=== PATIENT | male | born 1970 | race Caucasian/White ===

== ENCOUNTER 2017-01-30 14:40 | Emergency (ER) | payer OTHER ==
[2017-01-30 15:01] VITALS: BP 117/86; PULSE 98; TEMP 98; BMI 38.4
--- NOTE | 2017-01-30 16:41 | PDOC ---
History of Present Illness - General History Source: Patient Exam Limitations: No Limitations - History of Present Illness Initial Comments: 01/30/17 18:03 Chief complaint: Back pain Patient 46-year-old male with a history of type 2 diabetes, asthma, hypertension and some unknown cardiac issue, patient states that control engineer found it during a stress test in the spring. Patient states that he started having some lower back pain radiating into the left leg earlier today, he went shopping, and then his back locked up. He got into the car and he started having pain to his whole back with numbness also down the right leg. Patient states he was able to drive himself here but he has not been able to move since. Is also complaining of numbness to the right arm although he can move it. Patient denies any fever, headache, neck pain. Patient denies having pain like this before, patient knows that he has a herniated disc, and last MRI was in 2012. He states he sometimes gets back pain and he takes Aleve but this was much worse. Patient is refusing to get undressed before he gets pain medicine. GENERAL/CONSTITUTIONAL: No fever, weakness. dizziness HEAD, EYES, EARS, NOSE AND THROAT: No change in vision. No ear pain or discharge. No sore throat. CARDIOVASCULAR: No chest pain RESPIRATORY: No shortness of breath or cough GASTROINTESTINAL: No pain, nausea, vomiting, diarrhea or constipation GENITOURINARY: No dysuria MUSCULOSKELETAL: No neck +back pain SKIN: No rash NEUROLOGIC: No headache, vertigo, loss of consciousness, + loss of sensation. GENERAL: The patient is awake, alert, and fully oriented, flat on the stretcher , unable to move legs and move due to pain to back, moving both arms easily HEAD: Normal with no signs of trauma. EYES: Pupils equal, round and reactive to light, sclera anicteric, conjunctiva clear. ENT: pharynx: no erythema, no exudate, uvula midline NECK: supple CHEST: clear, nontender, rr ABD: soft, nontender Back: Tenderness to the lower spine EXTREMITIES: Strength 5 out of 5 in upper extremities, states feeling is less in right arm. Lower extremities unable to move secondary to pain, able to move toes, states sensation is decreased in both feet, pulses intact NEUROLOGICAL: Normal speech, unable to test gait SKIN: Warm, Dry <Marichuy Salazar - Last Filed: 01/30/17 19:20> <Birgit Gomez - Last Filed: 01/31/17 11:32> - General Chief Complaint: Back Pain Stated Complaint: BACK PAIN Time Seen by Provider: 01/30/17 15:55 Past History - Past Medical History Asthma: Yes COPD: No Diabetes: Yes HTN: Yes Other medical history: back - Suicide/Smoking/Psychosocial Hx Smoking Status: Yes Smoking History: Never smoked Have you smoked in the past 12 months: No Number of Cigarettes Smoked Daily: 20 Information on smoking cessation initiated: Yes 'Breaking Loose' booklet given: 01/30/17 Hx Alcohol Use: No Drug/Substance Use Hx: No Substance Use Type: Alcohol <Marichuy Salazar - Last Filed: 01/30/17 19:20> <Birgit Gomez - Last Filed: 01/31/17 11:32> - Past Medical History Allergies/Adverse Reactions: Allergies Allergy/AdvReac Type Severity Reaction Status Date / Time No Known Allergies Allergy Verified 01/30/17 14:57 Home Medications: Ambulatory Orders Activated Charcoal [Charcoal Plus Ds] 500 mg PO BID 07/20/12 Ferrous Fumarate [Iron] 55 mg PO 07/20/12 Methocarbamol [Robaxin -] 750 mg PO Q8H PRN #15 tablet 01/30/17 Tramadol HCl 50 mg PO Q6H PRN #16 tablet MDD 4 tabs 01/30/17 *Physical Exam - Vital Signs Last Vital Signs Temp Pulse Resp BP Pulse Ox 98.0 F 98 H 18 117/86 100 01/30/17 14:57 01/30/17 14:57 01/30/17 14:57 01/30/17 14:57 01/30/17 14:57 <Marichuy Salazar - Last Filed: 01/30/17 19:20> - Vital Signs Last Vital Signs Temp Pulse Resp BP Pulse Ox 98.0 F 98 H 18 117/86 100 01/30/17 14:57 01/30/17 14:57 01/30/17 14:57 01/30/17 14:57 01/30/17 14:57 <Birgit Gomez - Last Filed: 01/31/17 11:32> Heart Score/ECG Review - ECG Intrepretation Rhythm: Regular Rhythm Comment:: 01/30/17 18:24 Sinus tachycardia at 102, no ST changes <Marichuy Salazar - Last Filed: 01/30/17 19:20> ED Treatment Course - LABORATORY CBC & Chemistry Diagram: 01/30/17 17:10 01/30/17 17:10 <Marichuy Salazar - Last Filed: 01/30/17 19:20> - LABORATORY CBC & Chemistry Diagram: 01/30/17 17:10 01/30/17 17:10 - ADDITIONAL ORDERS Additional order review: Laboratory Results 01/30/17 20:56 Ur Leukocyte Esterase Negative 01/30/17 17:10 RBC 5.40 MCV 89.4 MCHC 34.4 RDW 13.9 MPV 8.5 Neutrophils % 56.8 Lymphocytes % 35.1 Monocytes % 6.6 Eosinophils % 0.6 Basophils % 0.9 - Medications Given in the ED: ED Medications Discontinued Medications Generic Name Dose Route Start Last Admin Trade Name Papito PRN Reason Stop Dose Admin Albuterol Sulfate 1 amp 01/30/17 19:44 01/30/17 20:15 Ventolin 0.083% Nebulizer Soln - NEB 01/30/17 19:45 1 amp ONCE ONE Administration Hydromorphone HCl 0.5 mg 01/30/17 17:42 01/30/17 17:51 Dilaudid Injection - IVPUSH 01/30/17 17:43 0.5 mg ONCE ONE Administration Hydromorphone HCl 0.5 mg 01/30/17 19:05 01/30/17 19:33 Dilaudid Injection - IVPUSH 01/30/17 19:06 0.5 mg ONCE ONE Administration Methocarbamol 1,000 mg 01/30/17 19:44 01/30/17 20:15 Robaxin - PO 01/30/17 19:45 1,000 mg ONCE ONE Administration Morphine Sulfate 4 mg 01/30/17 16:42 01/30/17 17:15 Morphine Injection - IVPUSH 01/30/17 16:43 4 mg ONCE ONE Administration <Birgit Gomez - Last Filed: 01/31/17 11:32> Medical Decision Making - Medical Decision Making 01/30/17 18:21 Patient with onset of lower back pain today, radiating into his legs, with numbness in both legs, pain was also radiating upwards, also complaining of numbness to the right hand. Motor function is intact to the upper extremities. Patient drove himself to the hospital. She is not able to ambulate now. Patient refused rectal exam although we told him that it was very important, that if he had cord compression it could lead to paralysis. Discussed with Dr. Gomez, who agreed we should do MRI given symptoms to rule out cauda equina, patient agreeable to plan 01/30/17 18:59 pt states numbness in right arm is gone. numbness in legs has decreased. was able to sit after pain meds, prior to mri pt returned from mri, awaiting results. c/o pain, will order more pain meds. s/ o to [facility], pending mri and dispo 01/30/17 19:21 <Marichuy Salazar - Last Filed: 01/30/17 19:20> *DC/Admit/Observation/Transfer <Marichuy Salazar - Last Filed: 01/30/17 19:20> - Attestations Physician Attestion: I reviewed the case with the mid-level practitioner and agree with the mid- level practitioner's assessment, diagnosis and disposition. <Birgit Gomez - Last Filed: 01/31/17 11:32> Diagnosis at time of Disposition: Back pain Qualifiers: Back pain location: back pain in unspecified location Chronicity: acute Back pain laterality: midline Qualified Code(s): M54.9 - Dorsalgia, unspecified Herniated disc Qualifiers: Spinal region: lumbar Qualified Code(s): M51.26 - Other intervertebral disc displacement, lumbar region - Discharge Dispostion Disposition: HOME Condition at time of disposition: Improved - Prescriptions Prescriptions: Methocarbamol [Robaxin -] 750 mg PO Q8H PRN #15 tablet PRN Reason: Back Pain Tramadol HCl 50 mg PO Q6H PRN #16 tablet MDD 4 tabs PRN Reason: Severe Pain - Referrals Referrals: Jose Shearer MD [Staff Physician] - - Patient Instructions Printed Discharge Instructions: DI for Herniated Disc Additional Instructions: Follow up with Dr. Shearer as discussed. Do not lift items greater than 10lbs until you are evaluated by Dr. Shearer. Take medications as prescribed. If you require a refill of prescriptions pain medications, you must visit with Dr. Shearer. Take warm showers, apply warm compress to affected area as needed for pain. Move slowly when getting out of seated position. Return if symptoms worsen or any concerns for further evaluation. Do not drive, drink alcohol or operate heavy machinery while taking these medications. We try very hard in providing patients on a case by case basis with adequate pain relief. Do to the potential habitual behaviors nationally we are asking that you use the medications as prescribed and follow up with your primary care provider or specialist if a refill is needed. Tramadol 50mg #16- 4 tabs MDD. Robaxin 750mg #15 - 3 tabs MDD. Print Language: YEMENI
[2017-01-30] MEDS ORDERED: morphine CARPU-JECT 4 MG/1 ML DISP.SYRIN IVPUSH ONE (16:42)
[2017-01-30] MEDS ORDERED: morphine SULFATE 4 MG/ML VIAL ONE (17:11)
[2017-01-30 17:15] LABS: BASOPHIL 0.9 % (0-2.0); EOSINOPHIL 0.6 % (0-4.5); MCH 30.8 pg (25.7-33.7); MCHC 34.4 g/dl (32.0-35.9); MEAN CELL VOLUME 89.4 fl (80-96); MEAN PLT VOLUME 8.5 fl (7.5-11.1); NEUTROPHILS 56.8 % (42.8-82.8); PLATELET COUNT 222 K/MM3 (134-434); RDW 13.9 % (11.9-15.9)
[2017-01-30 17:41] LABS: ALBUMIN 4.1 g/dl (3.4-5.0); ANION GAP 9 (8-16); BILIRUBIN,TOTAL 0.8 mg/dL (0.2-1.0); CALCIUM 9.7 mg/dL (8.5-10.1); CO2 26 mmol/L (21-32); CREATININE 0.8 mg/dL (0.7-1.3); GLUCOSE,RANDOM 119 mg/dL (74-106); SGPT/ALT 206 U/L (12-78)
[2017-01-30 17:42] LABS: ALK PHOS 70 U/L (45-117); TOT PROT 7.8 g/dl (6.4-8.2)
[2017-01-30] MEDS ORDERED: HYDROmorphone HCL CARPU-JECT 1 MG/1 ML DISP.SYRIN IVPUSH ONE ×2 (17:42→19:05)
[2017-01-30 17:46] LABS: SGOT/AST 151 U/L (15-37)
[2017-01-30] MEDS ORDERED: HYDROmorphone HCL CARPU-JECT 1 MG/1 ML DISP.SYRIN ONE ×2 (17:48→19:25)
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
[2017-01-30] MEDS ORDERED: ALBUTEROL SO4 0.083% IH SOL 2.5 MG/3 ML VIAL.NEB. NEB ONE ×2 (19:44→20:07)
[2017-01-30] MEDS ORDERED: METHOCARBAMOL 500 MG TABLET PO ONE (19:44)
[2017-01-30] MEDS ORDERED: METHOCARBAMOL 500 MG TABLET ONE (20:07)
[2017-01-30 21:14] LABS: URINE MARIJUANA THC NEGATIVE ng/ml (CUTOFF=50)
[2017-01-30 21:16] LABS: URINE APPEARANCE CLEAR; URINE BILIRUBIN NEGATIVE (NEGATIVE); URINE BLOOD NEGATIVE (NEGATIVE); URINE COLOR YELLOW; URINE GLUCOSE (UA) NEGATIVE (NEGATIVE); URINE KETONE TRACE (NEGATIVE); URINE LEUK ESTERASE NEGATIVE (NEGATIVE); URINE NITRITE NEGATIVE (NEGATIVE); URINE PROTEIN NEGATIVE (NEGATIVE); URINE UROBILINOGEN NEGATIVE mg/dL (0.2-1.0)
[2017-01-30 23:30] LABS: URINE LEUK ESTERASE Negative (NEGATIVE)
--- NOTE | 2017-02-02 01:40 | EKG ---
Test Reason : Blood Pressure : / mmHG Vent. Rate : 102 BPM Atrial Rate : 102 BPM P-R Int : 156 ms QRS Dur : 078 ms QT Int : 370 ms P-R-T Axes : 047 032 031 degrees QTc Int : 482 ms SINUS TACHYCARDIA OTHERWISE NORMAL ECG NO PREVIOUS ECGS AVAILABLE Confirmed by MARY GRACE ORTEGA MD ([id number]) on 02/02/2017 1:40:27 AM Referred By: Confirmed By:MARY GRACE ORTEGA MD
== END 2017-01-30 21:28 | disposition home or self-care (01) ==
LOC: JERFT 14:40 → JER 14:40
PROC: 3E0F7GC Introduction of Other Therapeutic Substance into Respiratory Tract, Via Natural or Artificial Opening (ICD-10-PCS; principal; 2017-01-30)
PROC: 3E033NZ Introduction of Analgesics, Hypnotics, Sedatives into Peripheral Vein, Percutaneous Approach (ICD-10-PCS; 2017-01-30)
PROC: 3E033NZ Introduction of Analgesics, Hypnotics, Sedatives into Peripheral Vein, Percutaneous Approach (ICD-10-PCS; 2017-01-30)
DX: M51.26 Other intervertebral disc displacement, lumbar region (principal); I10 Essential (primary) hypertension; E11.9 Type 2 diabetes mellitus without complications; J45.909 Unspecified asthma, uncomplicated; F17.210 Nicotine dependence, cigarettes, uncomplicated
CPT/HCPCS: 36415; 72148-TC; 80053; 80307; 81003; 85025; 93005; 93010; 99283-25

== ENCOUNTER 2019-08-18 10:20 | Inpatient (IN) | payer OTHER ==
[2019-08-18 11:24] LABS: BASO % 0.3 % (0-2.0); EOS % 0.5 % (0-4.5); HEMATOCRIT 35.9 % (35.4-49); HEMOGLOBIN 11.9 GM/dL (11.7-16.9); LYMPH % 8.7 % (8-40); MCH 30.2 pg (25.7-33.7); MEAN CELL VOLUME 91.5 fl (80-96); MEAN PLT VOLUME 8.9 fl (7.5-11.1); MONO % 5.3 % (3.8-10.2); NEUT % 85.2 % (42.8-82.8); PLATELET COUNT 367 K/MM3 (134-434); RBC 3.93 M/mm3 (4.00-5.60); RDW 16.1 % (11.9-15.9); WHITE BLOOD COUNT 13.4 K/mm3 (4.0-10.0)
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
[2019-08-18] MEDS ORDERED: SODIUM CHLORIDE 1,000 ML IV STA (11:33)
[2019-08-18 11:34] LABS: INR 1.18 (0.83-1.09); PROTHROMBIN TIME (PATIENT) 13.9 SEC (9.7-13.0)
[2019-08-18 11:37] LABS: ACTIVATED PTT 38.8 SECONDS (25.2-36.5)
--- NOTE | 2019-08-18 11:37 | PDOC ---
History of Present Illness - History of Present Illness Initial Comments: 08/18/19 11:32 HPI: 48 y/o M with hx of DM, HTN, ?unknown cardiac hx, diverticulitis, cirrhosis confirmed by , asthma presenting with AMS. According to the , he became disoriented yesterday around 2pm, not answering her questions and having incoherent speech with generalized weakness, however, no focal muscular weakness. She reports at that time he wasnt able to get out of bed to urinate. She checked his BP and it was 50s/30s and skipped his night BP meds. He was not improving this morning and called EMS. Of note, on 07/30/19, he had similar presentation of incoherence following an episode of SOB. He was admitted to [facility] for viral PNA; he was intubated for protection of airway and because he was not tolerating MRI brain and LP. LP was negative and MRI showed hx of stroke from the prior month; serial COVID was negative. He was DCd from [facility] with amlodipine due to high BP; after DC, he felt dizzy following amlodipine and sustained a fall and had an ankle fx; has been on percocet and scheduled for surgery next week Furthermore, patient saw ENT earlier this week for sore throat and difficulty swallowing and was diagnosed with oral thrush PMHx: as noted above ROS: as noted SHx: Denies tobacco use; no alcohol use; no rec drugs Allergies: NKDA ROS: unable to obtain 2/2 mental status PE: GENERAL: Somnolent, responds to repeated verbal stimuli, a&ox1 HEAD: No signs of trauma, normocephalic, atraumatic EYES: EOMI, sclera anicteric, conjunctiva clear, PERRLA ENT: Auricles normal inspection, hearing grossly normal, nares patent, white oral plaques on tongue and posterior oropharync, dry mucosa NECK: Normal ROM, no lymphadenopathy LUNGS: No increased work of breathing, symmetrical chest rise, clear to auscultation bilaterally, no wheezes, crackles or rhonchi HEART: Regular rate, regular rhythm, normal S1 and S2, no murmur, peripheral pulses 2+ and equal bilaterally. ABDOMEN: Soft, nondistended, generalized ttp. No guarding, no rebound. No masses. No CVAT MUSCULOSKELETAL: FROM, left foot with posterior splint for ankle fx, compartments soft 2+ distal pulses, sensation intact NEUROLOGICAL: limited 2/2 mental status, follows commands, str equal but limited 3/5 SKIN: cold, Dry, normal turgor, no rashes or lesions noted <Vicente Alvarado - Last Filed: 08/18/19 15:44> <Birgit Gomez - Last Filed: 08/19/19 08:01> - General Chief Complaint: Altered Mental Status Stated Complaint: Altered Mental Status Time Seen by Provider: 08/18/19 10:35 Past History - Medical History Asthma: Yes COPD: No Diabetes: Yes HTN: Yes - Psycho-Social/Smoking History Smoking Status: Yes Smoking History: Unknown if ever smoked Have you smoked in the past 12 months: No Number of Cigarettes Smoked Daily: 20 'Breaking Loose' booklet given: 01/30/17 - Substance Abuse Hx (Audit-C & DAST Scrn) In the last yr the pt used illegal drug/Rx for NonMed reason: No Score: Yes response is considered Positive: 0 Screen Result (Positive result requires Nsg. DAST-10): Negative <Vicente Alvarado - Last Filed: 08/18/19 15:44> <Birgit Gomez - Last Filed: 08/19/19 08:01> - Medical History Allergies/Adverse Reactions: Allergies Allergy/AdvReac Type Severity Reaction Status Date / Time No Known Allergies Allergy Verified 01/30/17 14:57 Home Medications: Ambulatory Orders Gabapentin 600 mg PO TID 08/18/19 Losartan/Hydrochlorothiazide [Losartan-Hctz 50-12.5 mg Tab] 1 each PO DAILY 08/18/19 Metoprolol Succinate [Toprol Xl] 25 mg PO DAILY 08/18/19 Oxycodone HCl/Acetaminophen [Percocet 5-325 mg Tablet] 7.5 - 325 mg PO TID PRN 08/18/19 *Physical Exam - Vital Signs Last Vital Signs Temp Pulse Resp BP Pulse Ox 69 12 97/75 95 08/18/19 10:20 08/18/19 10:20 08/18/19 10:20 08/18/19 10:20 <Vicente Alvarado - Last Filed: 08/18/19 15:44> - Vital Signs Last Vital Signs Temp Pulse Resp BP Pulse Ox 98.4 F 111 H 15 128/76 98 08/19/19 06:00 08/19/19 06:00 08/19/19 06:00 08/19/19 06:00 08/18/19 21:00 <Birgit Gomez - Last Filed: 08/19/19 08:01> Procedures - Central Line Central Line Lumen: triple Central Line Position: femoral (L) Anesthesia: 1% Lidocaine Amount of anesthesia (ccs): 4 Complications: none Post Central Line Insertion: sutured, good blood return <Vicente Alvarado - Last Filed: 08/18/19 15:44> ED Treatment Course - LABORATORY CBC & Chemistry Diagram: 08/18/19 11:00 08/18/19 14:20 - ADDITIONAL ORDERS Additional order review: Laboratory Results 08/18/19 10:46 POC Glucometer 178 08/18/19 08/18/19 11:00 10:46 RBC 3.93 L MCV 91.5 MCHC 33.0 RDW 16.1 H MPV 8.9 Neutrophils % 85.2 H D Lymphocytes % 8.7 D Monocytes % 5.3 Eosinophils % 0.5 Basophils % 0.3 POC Glucometer 178 - RADIOLOGY Radiology Studies Ordered: Category Date Time Status HEAD CT WITHOUT CONTRAST [CT] Stat CT Scan 08/18/19 10:52 Ordered <Vicente Alvarado - Last Filed: 08/18/19 15:44> - LABORATORY CBC & Chemistry Diagram: 08/18/19 11:00 08/18/19 14:20 - ADDITIONAL ORDERS Additional order review: 08/18/19 08/18/19 11:00 10:46 RBC 3.93 L MCV 91.5 MCHC 33.0 RDW 16.1 H MPV 8.9 Neutrophils % 85.2 H D Lymphocytes % 8.7 D Monocytes % 5.3 Eosinophils % 0.5 Basophils % 0.3 POC Glucometer 178 - Medications Given in the ED: ED Medications Discontinued Medications Generic Name Dose Route Start Last Admin Trade Name Freq PRN Reason Stop Dose Admin Acetaminophen 1,000 mg 08/18/19 23:12 08/18/19 23:26 Ofirmev Injection - IVPB 08/18/19 23:13 1,000 mg ONCE ONE Administration Albuterol Sulfate 1 amp 08/18/19 12:15 08/18/19 13:42 Ventolin 0.083% Nebulizer Soln - NEB 08/18/19 12:16 Not Given ONCE ONE Calcium Gluconate 1,000 mg 08/18/19 12:13 08/18/19 13:17 Calcium Gluconate 10% - IVPUSH 08/18/19 12:14 1,000 mg ONCE ONE Administration Dextrose 25 gm 08/18/19 12:14 08/18/19 13:17 D50w (Vial) - IVPUSH 08/18/19 12:15 25 gm NOW ONE Administration Fentanyl 50 mcg 08/18/19 13:25 08/18/19 13:31 Sublimaze Injection - IVPUSH 08/18/19 13:26 50 mcg ONCE ONE Administration Haloperidol 2.5 mg 08/18/19 16:28 08/19/19 03:33 Haldol Injection (Fast Acting) - IM 08/18/19 16:29 Not Given ONCE ONE Sodium Chloride 1,000 mls @ 1,000 mls/hr 08/18/19 11:33 08/18/19 11:25 Normal Saline - IV 08/18/19 12:32 1,000 mls/hr ASDIR STA Administration Sodium Chloride 1,000 mls @ 0 mls/hr 08/18/19 13:15 08/18/19 13:22 Normal Saline - IV 08/18/19 14:45 1,000 mls/hr ASDIR NU Administration Wide Open Sodium Chloride 1,000 mls @ 0 mls/hr 08/18/19 13:30 08/18/19 14:01 Normal Saline - IV 1,000 mls/hr ASDIR NU Administration Wide Open Cefepime HCl 2 gm in 50 mls @ 100 mls/hr 08/18/19 15:30 08/19/19 03:32 Maxipime 2gm Ivpb (Premix) IVPB Not Given Q12H NU Protocol Cefepime HCl 2 gm/ Dextrose 100 mls @ 100 mls/hr 08/18/19 16:00 08/18/19 16:00 IVPB 08/18/19 16:59 100 mls/hr ONCE ONE Administration Protocol Lactated Ringer's 1,000 ml in 1,000 mls @ 1,000 mls/hr 08/18/19 15:49 08/18/19 18:02 Lactated Ringers Solution IV 08/18/19 16:48 1,000 mls/hr ONCE STA Administration Cefepime HCl 1 gm/ Dextrose 100 mls @ 200 mls/hr 08/18/19 16:45 08/18/19 16:44 IVPB 08/18/19 17:14 Not Given ONCE ONE Protocol Insulin Human Regular 10 units 08/18/19 12:14 08/18/19 13:18 Novolin R Vial *For Ivpush Or Iv Drip Only* IVPUSH 08/18/19 12:15 10 units ONCE ONE Administration Sodium Bicarbonate 50 meq 08/18/19 12:16 08/18/19 13:18 Sodium Bicarbonate 8.4% - IV 08/18/19 12:17 50 meq ONCE ONE Administration Sodium Bicarbonate 50 meq 08/18/19 12:43 08/18/19 13:18 Sodium Bicarbonate 8.4% - IVPUSH 08/18/19 12:44 50 meq ONCE ONE Administration Sodium Bicarbonate 50 meq 08/18/19 14:15 08/18/19 14:38 Sodium Bicarbonate 8.4% - IV 08/18/19 14:16 50 meq ONCE ONE Administration Sodium Polystyrene Sulfonate 30 gm 08/18/19 12:44 08/18/19 13:58 Kayexalate - RC 08/18/19 12:45 Not Given ONCE ONE <Birgit Gomez - Last Filed: 08/19/19 08:01> Medical Decision Making - Medical Decision Making 08/18/19 15:50 48 y/o M with hx of DM, HTN, ?unknown cardiac hx, diverticulitis, cirrhosis c onfirmed by biopsy, asthma presenting with AMS since yesterday afternoon. BP 50s/30s with MAP 45 T 93 HR 60s. PE notable for somnolence, and generalized abd ttp. Will evaluate for anemia, cardiac dysarrythmias, hypoglycemia, electrolyte abnml, metabolic and toxic derangements, acid-base disturbances, infection. -cbc, cmp, coags, card prof, salic, acetamin, alcohol, abg, ua, utox, ucx, ammonia, ekg -CT head -2L ivf, sarahi meghanner 08/18/19 15:52 CMP with Cr 7.5, BUN 106, K 6.7 renal consulted; ricaK protocol initiated Central line placed for MAPs 40s in left fem Neuro consulted for concern of neurovasc disease rpt BMP 08/18/19 15:54 ICU consulted, patient admitted patient recevied 4L in ER and multiple bicarb amps; started on bicarb drip Dr Rivera recommeding LRs following bicarb ggt and rpt bmp 1930 <Vicente Alvarado - Last Filed: 08/18/19 15:44> - Critical Care Time Total Critical Care Time (minutes): 60 Critical Care Statement: The care of this patient involved high complexity decision making to prevent further life threatening deterioration of the patient's condition and/or to evaluate & treat vital organ system(s) failure or risk of failure. <Birgit Gomez - Last Filed: 08/19/19 08:01> Discharge - Discharge Information Problems reviewed: Yes <Vicente Alvarado - Last Filed: 08/18/19 15:44> <Birgit Gomez - Last Filed: 08/19/19 08:01> - Discharge Information Clinical Impression/Diagnosis: Uremia, Hyperkalemia, Acute kidney injury Altered mental status Qualifiers: Altered mental status type: unspecified Qualified Code(s): R41.82 - Altered mental status, unspecified Condition: Critical
[2019-08-18] MEDS ORDERED: NOREPINEPHRINE BITARTRATE 4 MG/4 ML ML IV ONE (11:57)
[2019-08-18 12:03] LABS: ALBUMIN 3.2 g/dl (3.4-5.0); ALK PHOS 107 U/L (45-117); BILIRUBIN,TOTAL 0.4 mg/dL (0.2-1); CALCIUM 7.7 mg/dL (8.5-10.1); CHLORIDE 90 mmol/L (98-107); CO2 8 mmol/L (21-32); GLUCOSE,RANDOM 165 mg/dL (74-106); MAGNESIUM 2.9 mg/dL (1.8-2.4); SGOT/AST 25 U/L (15-37); SGPT/ALT 20 U/L (13-61); SODIUM 121 mmol/L (136-145)
[2019-08-18 12:04] LABS: ANION GAP 23 MMOL/L (8-16)
[2019-08-18 12:10] LABS: BLOOD UREA NITROGEN 104.8 mg/dL (7-18)
[2019-08-18 12:11] LABS: CREATININE 7.5 mg/dL (0.55-1.3); POTASSIUM 6.4 mmol/L (3.5-5.1)
[2019-08-18] MEDS ORDERED: CALCIUM GLUCONATE 10% - 1,000 MG/10 ML VIAL IVPUSH ONE (12:13)
[2019-08-18] MEDS ORDERED: INSULIN REGULAR HUMAN 100 UNITS/ML *VIAL IVPUSH ONE (12:14)
[2019-08-18] MEDS ORDERED: DEXTROSE 50%-WATER - 25 GM/50 ML VIAL IVPUSH ONE (12:14)
[2019-08-18] MEDS ORDERED: ALBUTEROL SO4 0.083% IH SOL 2.5 MG/3 ML VIAL.NEB. NEB ONE (12:15)
[2019-08-18] MEDS ORDERED: SODIUM BICARBONATE 8.4% 50 MEQ/50 ML VIAL IV ONE ×2 (12:16→14:15)
[2019-08-18] MEDS ORDERED: NOREPINEPHRINE BITARTRATE 8,000 MCG/500 ML BAG IVPB SCH (12:30)
[2019-08-18] MEDS ORDERED: LIDOCAINE HCL 2% JELLY (5 ML/TUBE) ONE (12:40)
[2019-08-18] MEDS ORDERED: LIDOCAINE HCL 2% JELLY 10 ML CARTRIDGE ONE (12:41)
[2019-08-18] MEDS ORDERED: SODIUM BICARBONATE 8.4% 50 MEQ/50 ML DISP.SYRIN IVPUSH ONE (12:43)
[2019-08-18] MEDS ORDERED: SODIUM POLYSTYRENE SULFONATE 15 GM/60 ML BOTTLE RC ONE (12:44)
--- NOTE | 2019-08-18 12:54 | PDOC ---
*Physical Exam - Vital Signs Last Vital Signs Temp Pulse Resp BP Pulse Ox 69 12 97/75 95 08/18/19 10:20 08/18/19 10:20 08/18/19 10:20 08/18/19 10:20 - Physical Exam 08/18/19 12:53 Discussed case with ICU resident Dr. Eddie Taveras who will come see patient Case discussed with Dr. Rivera at bedside. ED Treatment Course - LABORATORY CBC & Chemistry Diagram: 08/22/19 06:30 08/22/19 06:30 - ADDITIONAL ORDERS Additional order review: Laboratory Results 08/18/19 08/18/19 08/18/19 11:00 11:00 11:00 PT with INR INR PTT (Actin FS) Sodium Potassium Chloride Carbon Dioxide Anion Gap BUN Creatinine Est GFR (CKD-EPI)AfAm Est GFR (CKD-EPI)NonAf POC Glucometer Random Glucose Lactic Acid 1.4 Calcium Magnesium Total Bilirubin AST ALT Alkaline Phosphatase Ammonia Creatine Kinase Creatine Kinase Index CK-MB (CK-2) Troponin I Total Protein Albumin Salicylates Acetaminophen 4.0 Alcohol, Quantitative < 3 08/18/19 08/18/19 08/18/19 11:00 11:00 11:00 PT with INR 13.90 H INR 1.18 H PTT (Actin FS) 38.8 H Sodium 121 L Potassium 6.4 H* Chloride 90 L Carbon Dioxide 8 L Anion Gap 23 H BUN 104.8 H* Creatinine 7.5 H* Est GFR (CKD-EPI)AfAm 9.11 Est GFR (CKD-EPI)NonAf 7.86 POC Glucometer Random Glucose 165 H Lactic Acid Calcium 7.7 L Magnesium 2.9 H Total Bilirubin 0.4 AST 25 ALT 20 Alkaline Phosphatase 107 Ammonia < 10.00 L Creatine Kinase 735 H Creatine Kinase Index 4.4 CK-MB (CK-2) 32.5 H Troponin I < 0.02 Total Protein 7.0 Albumin 3.2 L Salicylates Acetaminophen Alcohol, Quantitative 08/18/19 08/18/19 11:00 10:46 PT with INR INR PTT (Actin FS) Sodium Potassium Chloride Carbon Dioxide Anion Gap BUN Creatinine Est GFR (CKD-EPI)AfAm Est GFR (CKD-EPI)NonAf POC Glucometer 178 Random Glucose Lactic Acid Calcium Magnesium Total Bilirubin AST ALT Alkaline Phosphatase Ammonia Creatine Kinase Creatine Kinase Index CK-MB (CK-2) Troponin I Total Protein Albumin Salicylates 3.1 Acetaminophen Alcohol, Quantitative 08/18/19 08/18/19 11:00 10:46 RBC 3.93 L MCV 91.5 MCHC 33.0 RDW 16.1 H MPV 8.9 Neutrophils % 85.2 H D Lymphocytes % 8.7 D Monocytes % 5.3 Eosinophils % 0.5 Basophils % 0.3 POC Glucometer 178 Discharge - Discharge Information Problems reviewed: Yes Clinical Impression/Diagnosis: Uremia, Hyperkalemia, Acute kidney injury Altered mental status Qualifiers: Altered mental status type: unspecified Qualified Code(s): R41.82 - Altered mental status, unspecified Condition: Improved Disposition: HOME - Follow up/Referral - Patient Discharge Instructions - Post Discharge Activity
[2019-08-18] MEDS ORDERED: VASOPRESSIN 40 UNITS in SODIUM CHLORIDE 98 ML IVPB SCH (13:00)
[2019-08-18] MEDS ORDERED: DEXTROSE 50%-WATER 25 GM/50 ML DISP.SYRIN ONE (13:05)
[2019-08-18] MEDS ORDERED: SODIUM BICARBONATE 8.4% 50 MEQ/50 ML VIAL ONE (13:05)
[2019-08-18] MEDS ORDERED: CALCIUM GLUCONATE 10% - 1,000 MG/10 ML VIAL ONE (13:05)
[2019-08-18] MEDS ORDERED: SODIUM BICARBONATE 8.4% - 50 ML ONE (13:11)
[2019-08-18] MEDS ORDERED: SODIUM CHLORIDE 1,000 ML IV SCH ×2 (13:15→13:30)
[2019-08-18 13:35] LABS: COCAINE, UR NEGATIVE ng/ml (CUTOFF=300); METHADONE, UR NEGATIVE ng/ml (CUTOFF=300); OPIATES, URI NEGATIVE ng/ml (CUTOFF=300); PHENCYCLIDINE,URINE NEGATIVE ng/ml (CUTOFF=25); URINE BARBITURATES NEGATIVE ng/ml (CUTOFF=200); URINE BENZODIAZEPINES NEGATIVE ng/ml (CUTOFF=200)
[2019-08-18 13:36] LABS: BLOOD UREA NITROGEN 103.6 mg/dL (7-18); CALCIUM 7.1 mg/dL (8.5-10.1); CHLORIDE 95 mmol/L (98-107); CO2 5 mmol/L (21-32); CREATININE 7.3 mg/dL (0.55-1.3); GLUCOSE,RANDOM 132 mg/dL (74-106); SODIUM 126 mmol/L (136-145)
[2019-08-18 13:39] LABS: URINE APPEARANCE CLEAR; URINE BILIRUBIN NEGATIVE (NEGATIVE); URINE COLOR YELLOW; URINE GLUCOSE (UA) NEGATIVE (NEGATIVE); URINE KETONE NEGATIVE (NEGATIVE)
[2019-08-18 13:40] LABS: URINE AMPHETAMINES NEGATIVE ng/ml (CUTOFF=500); URINE LEUK ESTERASE NEGATIVE (NEGATIVE); URINE NITRITE NEGATIVE (NEGATIVE); URINE UROBILINOGEN 0.2 mg/dL (0.2-1.0)
[2019-08-18 13:40] LABS: ANION GAP 26 MMOL/L (8-16)
[2019-08-18 13:42] LABS: EPI CELLS 18 /uL (0-25.1); HYALINE CASTS 4 /uL (0-3.1); URINE BACTERIA 6 /uL (0-1359); URINE PROTEIN 1+ (NEGATIVE); URINE RBC 6 /uL (0-23.9); URINE WBC 8 /uL (0-25.8)
[2019-08-18 13:48] LABS: ANISOCYTOSIS 0; MACROCYTOSIS 0; PLATELET ESTIMATE NORMAL
[2019-08-18 13:56] LABS: POTASSIUM 6.3 mmol/L (3.5-5.1)
[2019-08-18] MEDS ORDERED: DEXTROSE 5%-WATER - 1,000 ML with SODIUM BICARBONATE 8.4% - 150 MEQ IV SCH (14:15)
[2019-08-18 14:38] LABS: ARTERIAL BLD GAS O2 SATURATION 98.9 mmHg (95-98); ARTERIAL BLOOD GAS BASE EXCESS -20.1 mmol/L (-2-2); ARTERIAL BLOOD GAS PO2 181.2 mmHg (80-100)
[2019-08-18] MEDS ORDERED: SODIUM BICARBONATE 8.4% - 100 ML ONE (14:39)
[2019-08-18 14:44] LABS: ARTERIAL BLOOD GAS pH 7.142 (7.350-7.450)
[2019-08-18] MEDS ORDERED: DEXTROSE 5%-WATER - 1,000 ML with SODIUM BICARBONATE 8.4% - 100 MEQ IV SCH (14:45)
[2019-08-18] MEDS: SODIUM BICARBONATE 8.4% - 100 MEQ in DEXTROSE 5%-WATER - 1,000 ML IV SCH ×2 (14:50→23:35)
[2019-08-18 15:01] LABS: CALCIUM 7.4 mg/dL (8.5-10.1); CREATININE 6.1 mg/dL (0.55-1.3); POTASSIUM 3.9 mmol/L (3.5-5.1)
--- NOTE | 2019-08-18 15:15 | PN ---
Teaching Attending Note Name of Resident: Dionne Begum ATTENDING PHYSICIAN STATEMENT I saw and evaluated the patient. I reviewed the resident's note and discussed the case with the resident. I agree with the resident's findings and plan as documented. SUBJECTIVE: 48 M, DM, HTN, (?) CAD, diverticulitis, liver cirrhosis (etiology to be dete rmined), and apparent asthma. Recent admission to [facility] for viral PNA. He was intubated and reported to have an LP and brain MRI. Discharged in his previous state of health. Admitted via the ER due to AMS. According to the , he became disoriented yesterday around 2pm, not answering her questions and having incoherent speech with generalized weakness. No seizure activity was noted. No travel history or sick contacts. Noted to be hypotensive despite IVF resuscitation and was started on NE drip. CT evaluation noted : non-specific colitis and ground glass on chest imaging : main DDX COVID19 versus early ARDS Intake & Output 08/15/19 08/16/19 08/17/19 08/18/19 23:59 23:59 23:59 23:59 Intake Total 5000 Output Total 1675 Balance 3325 Weight 170 lb Last Vital Signs Temp Pulse Resp BP Pulse Ox 95.2 F L 109 H 15 124/58 L 100 08/18/19 14:37 08/18/19 14:37 08/18/19 14:37 08/18/19 14:37 08/18/19 14:37 Active Medications Norepinephrine Bitartrate (Levophed Bag) 8,000 mcg in 500 mls @ 18.75 mls/hr IVPB TITR NU; Protocol Last Titration: 08/18/19 14:38 Dose: 5 mcg/min, 18.75 mls/hr Documented by: Vasopressin 40 units/ Sodium (Chloride) 100 mls @ 5 mls/hr IVPB ASDIR NU; Protocol Last Admin: 08/18/19 14:43 Dose: Not Given Documented by: Sodium Bicarbonate 100 meq/ (Dextrose) 1,100 mls @ 125 mls/hr IV Q8H NU Last Admin: 08/18/19 14:50 Dose: 125 mls/hr Documented by: GENERAL: Somnolent with arousable, NAD HEAD: No signs of trauma, normocephalic, atraumatic EYES: EOMI, sclera anicteric, conjunctiva clear, PERRLA ENT: dry mucosa NECK: (-) lymphadenopathy LUNGS: clear to auscultation bilaterally, no wheezes, crackles or rhonchi HEART: Regular rate, regular rhythm, normal S1 and S2, no murmur, peripheral pulses 2+ and equal bilaterally. ABDOMEN: Soft, (+) non-specific generalized tenderness to palpation. No guarding, no rebound. No masses. MUSCULOSKELETAL: (+) Left foot with splint NEUROLOGICAL: Somnolent, non-focal findings SKIN: cool to touch, no rashes or lesions noted Laboratory Results - last 24 hr 08/18/19 08/18/19 08/18/19 10:46 11:00 11:00 WBC 13.4 H RBC 3.93 L Hgb 11.9 Hct 35.9 D MCV 91.5 MCH 30.2 MCHC 33.0 RDW 16.1 H Plt Count 367 D MPV 8.9 Absolute Neuts (auto) 11.4 H Neutrophils % 85.2 H D Neutrophils % (Manual) 77.3 Band Neutrophils % 2.7 Lymphocytes % 8.7 D Lymphocytes % (Manual) 15.5 Monocytes % 5.3 Monocytes % (Manual) 2 L Eosinophils % 0.5 Eosinophils % (Manual) 0.0 Basophils % 0.3 Basophils % (Manual) 0.0 Myelocytes % (Man) 1 Promyelocytes % (Man) 1 Blast Cells % (Manual) 0 Nucleated RBC % 0 Metamyelocytes 1 Hypochromia 0 Platelet Estimate Normal Polychromasia 0 Poikilocytosis 0 Anisocytosis 0 Microcytosis 0 Macrocytosis 0 PT with INR INR PTT (Actin FS) Anticoagulation Therapy Puncture Site Patient Temperature ABG pH ABG pCO2 ABG pO2 ABG HCO3 ABG O2 Sat (Measured) ABG O2 Content ABG Base Excess Goran Test Patient On Oxygen O2 Delivery Device Oxygen Flow Rate Vent Mode Vent Rate Mechanical Rate PEEP Pressure Support Vent Sodium Potassium Chloride Carbon Dioxide Anion Gap BUN Creatinine Est GFR (CKD-EPI)AfAm Est GFR (CKD-EPI)NonAf POC Glucometer 178 Random Glucose Lactic Acid Calcium Magnesium Total Bilirubin AST ALT Alkaline Phosphatase Ammonia Creatine Kinase Creatine Kinase Index CK-MB (CK-2) Troponin I Total Protein Albumin TSH Urine Color Urine Appearance Urine pH Ur Specific [place] Urine Protein Urine Glucose (UA) Urine Ketones Urine Blood Urine Nitrite Urine Bilirubin Urine Urobilinogen Ur Leukocyte Esterase Urine WBC (Auto) Urine RBC (Auto) Urine Casts (Auto) U Epithel Cells (Auto) Urine Bacteria (Auto) Salicylates 3.1 Opiates Screen Methadone Screen Acetaminophen Barbiturate Screen Phencyclidine Screen Ur Amphetamines Screen MDMA (Ecstasy) Screen Benzodiazepines Screen Cocaine Screen U Marijuana (THC) Screen Alcohol, Quantitative 08/18/19 08/18/19 08/18/19 11:00 11:00 11:00 WBC RBC Hgb Hct MCV MCH MCHC RDW Plt Count MPV Absolute Neuts (auto) Neutrophils % Neutrophils % (Manual) Band Neutrophils % Lymphocytes % Lymphocytes % (Manual) Monocytes % Monocytes % (Manual) Eosinophils % Eosinophils % (Manual) Basophils % Basophils % (Manual) Myelocytes % (Man) Promyelocytes % (Man) Blast Cells % (Manual) Nucleated RBC % Metamyelocytes Hypochromia Platelet Estimate Polychromasia Poikilocytosis Anisocytosis Microcytosis Macrocytosis PT with INR 13.90 H INR 1.18 H PTT (Actin FS) 38.8 H Anticoagulation Therapy Puncture Site Patient Temperature ABG pH ABG pCO2 ABG pO2 ABG HCO3 ABG O2 Sat (Measured) ABG O2 Content ABG Base Excess Goran Test Patient On Oxygen O2 Delivery Device Oxygen Flow Rate Vent Mode Vent Rate Mechanical Rate PEEP Pressure Support Vent Sodium 121 L Potassium 6.4 H* Chloride 90 L Carbon Dioxide 8 L Anion Gap 23 H BUN 104.8 H* Creatinine 7.5 H* Est GFR (CKD-EPI)AfAm 9.11 Est GFR (CKD-EPI)NonAf 7.86 POC Glucometer Random Glucose 165 H Lactic Acid Calcium 7.7 L Magnesium 2.9 H Total Bilirubin 0.4 AST 25 ALT 20 Alkaline Phosphatase 107 Ammonia < 10.00 L Creatine Kinase 735 H Creatine Kinase Index 4.4 CK-MB (CK-2) 32.5 H Troponin I < 0.02 Total Protein 7.0 Albumin 3.2 L TSH Urine Color Urine Appearance Urine pH Ur Specific [place] Urine Protein Urine Glucose (UA) Urine Ketones Urine Blood Urine Nitrite Urine Bilirubin Urine Urobilinogen Ur Leukocyte Esterase Urine WBC (Auto) Urine RBC (Auto) Urine Casts (Auto) U Epithel Cells (Auto) Urine Bacteria (Auto) Salicylates Opiates Screen Methadone Screen Acetaminophen Barbiturate Screen Phencyclidine Screen Ur Amphetamines Screen MDMA (Ecstasy) Screen Benzodiazepines Screen Cocaine Screen U Marijuana (THC) Screen Alcohol, Quantitative 08/18/19 08/18/19 08/18/19 11:00 11:00 11:00 WBC RBC Hgb Hct MCV MCH MCHC RDW Plt Count MPV Absolute Neuts (auto) Neutrophils % Neutrophils % (Manual) Band Neutrophils % Lymphocytes % Lymphocytes % (Manual) Monocytes % Monocytes % (Manual) Eosinophils % Eosinophils % (Manual) Basophils % Basophils % (Manual) Myelocytes % (Man) Promyelocytes % (Man) Blast Cells % (Manual) Nucleated RBC % Metamyelocytes Hypochromia Platelet Estimate Polychromasia Poikilocytosis Anisocytosis Microcytosis Macrocytosis PT with INR INR PTT (Actin FS) Anticoagulation Therapy Puncture Site Patient Temperature ABG pH ABG pCO2 ABG pO2 ABG HCO3 ABG O2 Sat (Measured) ABG O2 Content ABG Base Excess Goran Test Patient On Oxygen O2 Delivery Device Oxygen Flow Rate Vent Mode Vent Rate Mechanical Rate PEEP Pressure Support Vent Sodium Potassium Chloride Carbon Dioxide Anion Gap BUN Creatinine Est GFR (CKD-EPI)AfAm Est GFR (CKD-EPI)NonAf POC Glucometer Random Glucose Lactic Acid 1.4 Calcium Magnesium Total Bilirubin AST ALT Alkaline Phosphatase Ammonia Creatine Kinase Creatine Kinase Index CK-MB (CK-2) Troponin I Total Protein Albumin TSH Urine Color Urine Appearance Urine pH Ur Specific [place] Urine Protein Urine Glucose (UA) Urine Ketones Urine Blood Urine Nitrite Urine Bilirubin Urine Urobilinogen Ur Leukocyte Esterase Urine WBC (Auto) Urine RBC (Auto) Urine Casts (Auto) U Epithel Cells (Auto) Urine Bacteria (Auto) Salicylates Opiates Screen Methadone Screen Acetaminophen 4.0 Barbiturate Screen Phencyclidine Screen Ur Amphetamines Screen MDMA (Ecstasy) Screen Benzodiazepines Screen Cocaine Screen U Marijuana (THC) Screen Alcohol, Quantitative < 3 08/18/19 08/18/19 08/18/19 12:15 12:50 12:50 WBC RBC Hgb Hct MCV MCH MCHC RDW Plt Count MPV Absolute Neuts (auto) Neutrophils % Neutrophils % (Manual) Band Neutrophils % Lymphocytes % Lymphocytes % (Manual) Monocytes % Monocytes % (Manual) Eosinophils % Eosinophils % (Manual) Basophils % Basophils % (Manual) Myelocytes % (Man) Promyelocytes % (Man) Blast Cells % (Manual) Nucleated RBC % Metamyelocytes Hypochromia Platelet Estimate Polychromasia Poikilocytosis Anisocytosis Microcytosis Macrocytosis PT with INR INR PTT (Actin FS) Anticoagulation Therapy Puncture Site Patient Temperature ABG pH ABG pCO2 ABG pO2 ABG HCO3 ABG O2 Sat (Measured) ABG O2 Content ABG Base Excess Goran Test Patient On Oxygen O2 Delivery Device Oxygen Flow Rate Vent Mode Vent Rate Mechanical Rate PEEP Pressure Support Vent Sodium 126 L Potassium 6.3 H* Chloride 95 L Carbon Dioxide 5 L Anion Gap 26 H BUN 103.6 H Creatinine 7.3 H Est GFR (CKD-EPI)AfAm 9.42 Est GFR (CKD-EPI)NonAf 8.12 POC Glucometer Random Glucose 132 H Lactic Acid Calcium 7.1 L Magnesium Total Bilirubin AST ALT Alkaline Phosphatase Ammonia Creatine Kinase Creatine Kinase Index CK-MB (CK-2) Troponin I < 0.02 Total Protein Albumin TSH 2.57 Urine Color Yellow Urine Appearance Clear Urine pH 5.0 D Ur Specific [place] 1.017 Urine Protein 1+ H Urine Glucose (UA) Negative Urine Ketones Negative Urine Blood Negative Urine Nitrite Negative Urine Bilirubin Negative Urine Urobilinogen 0.2 Ur Leukocyte Esterase Negative Urine WBC (Auto) 8 Urine RBC (Auto) 6 Urine Casts (Auto) 4 U Epithel Cells (Auto) 18 Urine Bacteria (Auto) 6 Salicylates Opiates Screen Negative Methadone Screen Negative Acetaminophen Barbiturate Screen Negative Phencyclidine Screen Negative Ur Amphetamines Screen Negative MDMA (Ecstasy) Screen Negative Benzodiazepines Screen Negative Cocaine Screen Negative U Marijuana (THC) Screen Negative Alcohol, Quantitative 08/18/19 08/18/19 14:20 14:20 WBC RBC Hgb Hct MCV MCH MCHC RDW Plt Count MPV Absolute Neuts (auto) Neutrophils % Neutrophils % (Manual) Band Neutrophils % Lymphocytes % Lymphocytes % (Manual) Monocytes % Monocytes % (Manual) Eosinophils % Eosinophils % (Manual) Basophils % Basophils % (Manual) Myelocytes % (Man) Promyelocytes % (Man) Blast Cells % (Manual) Nucleated RBC % Metamyelocytes Hypochromia Platelet Estimate Polychromasia Poikilocytosis Anisocytosis Microcytosis Macrocytosis PT with INR INR PTT (Actin FS) Anticoagulation Therapy No Result Required. Puncture Site No Result Required. Patient Temperature No Result Required. ABG pH 7.142 L* ABG pCO2 21.00 L ABG pO2 181.2 H ABG HCO3 7.0 L ABG O2 Sat (Measured) 98.9 H ABG O2 Content No Result Required. ABG Base Excess -20.1 L Goran Test No Result Required. Patient On Oxygen No Result Required. O2 Delivery Device No Result Required. Oxygen Flow Rate No Result Required. Vent Mode No Result Required. Vent Rate No Result Required. Mechanical Rate No Result Required. PEEP No Result Required. Pressure Support Vent No Result Required. Sodium 129 L Potassium 3.9 Chloride 102 Carbon Dioxide 8 L Anion Gap 19 H BUN 98.0 H Creatinine 6.1 H Est GFR (CKD-EPI)AfAm 11.70 Est GFR (CKD-EPI)NonAf 10.09 POC Glucometer Random Glucose 159 H Lactic Acid Calcium 7.4 L Magnesium Total Bilirubin AST ALT Alkaline Phosphatase Ammonia Creatine Kinase Creatine Kinase Index CK-MB (CK-2) Troponin I Total Protein Albumin TSH Urine Color Urine Appearance Urine pH Ur Specific [place] Urine Protein Urine Glucose (UA) Urine Ketones Urine Blood Urine Nitrite Urine Bilirubin Urine Urobilinogen Ur Leukocyte Esterase Urine WBC (Auto) Urine RBC (Auto) Urine Casts (Auto) U Epithel Cells (Auto) Urine Bacteria (Auto) Salicylates Opiates Screen Methadone Screen Acetaminophen Barbiturate Screen Phencyclidine Screen Ur Amphetamines Screen MDMA (Ecstasy) Screen Benzodiazepines Screen Cocaine Screen U Marijuana (THC) Screen Alcohol, Quantitative IMP: Septic Shock : GI source (colitis) R/O COVID19 R/O early ARDS KERLINE R/O Vasculitis (low suspicion) DM HTN (?) CAD Diverticulitis Liver cirrhosis Asthma Aggressive IVF resuscitation NE to maintain MAP > 65 Strict I & O ABX coverage ID evaluation Renal evaluation noted Follow BMP Q 4h Gordon-culture Follow Neuro exam Neurology evaluation was called Requires ICU monitoring Dr Castro Critical care time spent in reviewing chart, evaluating patient and formulating plan - 36 minutes.
[2019-08-18] MEDS ORDERED: CEFEPIME HCL/D5W 2 GM/50 ML BAG IVPB SCH (15:30)
[2019-08-18] MEDS ORDERED: CEFEPIME 2 GM/100 ML BAG IVPB ONE (15:39)
--- NOTE | 2019-08-18 15:45 | CONSULT ---
Consult Consult Specialty:: Nephrology Reason for Consultation:: KERLINE - History of Present Illness Chief Complaint: confusion History of Present Illness: Pt is a 48 year old male with pmhx of dm, htn, liver cirrhosis, diverticulitis. and ashtma who presented with altered mental status. He was found to be in KERLINE and I was called to evaluate him. He is disoriented and unable to give a full history. He was recently in an outside hospital where he was treated for a viral PNA. He was hypotensive at home and in the ER. I was called to evaluate him as he was hyperkalemic and in acute renal failure. Rosario was placed and he is making urine. He required pressors for hypotension. - History Source History Provided By: Patient, Family Member, Medical Record - Past Medical History Cardio/Vascular: Yes: HTN Pulmonary: Yes: Pneumonia - Alcohol/Substance Use Hx Alcohol Use: No - Smoking History Smoking history: Unknown if ever smoked Have you smoked in the past 12 months: No Aproximately how many cigarettes per day: 20 Home Medications - Allergies Allergies/Adverse Reactions: Allergies Allergy/AdvReac Type Severity Reaction Status Date / Time No Known Allergies Allergy Verified 01/30/17 14:57 - Home Medications Home Medications: Ambulatory Orders Gabapentin 600 mg PO TID 08/18/19 Losartan/Hydrochlorothiazide [Losartan-Hctz 50-12.5 mg Tab] 1 each PO DAILY 08/18/19 Metoprolol Succinate [Toprol Xl] 25 mg PO DAILY 08/18/19 Oxycodone HCl/Acetaminophen [Percocet 5-325 mg Tablet] 1 tab PO Q6H PRN 08/18/19 Family Medical History Family History: Unable to Obtain Review of Systems Unable to obtain ROS, reason: pt lethargic - Review of Systems Constitutional: reports: Lethargy, Loss of Appetite, Weakness Physical Exam Vital Signs: Vital Signs Temperature 96.2 F L 08/18/19 15:00 Pulse Rate 112 H 08/18/19 15:00 Respiratory Rate 18 08/18/19 15:00 Blood Pressure 105/60 08/18/19 15:00 O2 Sat by Pulse Oximetry (%) 99 08/18/19 15:00 Constitutional: Yes: Mild Distress Eyes: Yes: Conjunctiva Clear HENT: Yes: Atraumatic Cardiovascular: Yes: S1, S2 Respiratory: Yes: On Nasal O2 Gastrointestinal: Yes: Soft Renal/: Yes: Rosario Present Musculoskeletal: Yes: Muscle Weakness Extremities: Yes: Other (left foot cast) Edema: No Integumentary: Yes: WNL Neurological: Yes: Lethargy Labs: CBC, BMP 08/18/19 11:00 08/18/19 14:20 Laboratory Tests 08/18/19 08/18/19 08/18/19 12:15 12:15 14:20 ABG pH 7.142 L* ABG pCO2 21.00 L ABG pO2 181.2 H ABG HCO3 7.0 L Sodium 126 L Potassium 6.3 H* Carbon Dioxide 5 L COVID-19 (CARLENE) Pending 08/18/19 14:20 ABG pH ABG pCO2 ABG pO2 ABG HCO3 Sodium 129 L Potassium 3.9 Carbon Dioxide 8 L COVID-19 (CARLENE) Imaging - Results Cat Scan: Report Reviewed Problem List - Problems (1) Acute kidney injury Code(s): N17.9 - ACUTE KIDNEY FAILURE, UNSPECIFIED (2) Altered mental status Code(s): R41.82 - ALTERED MENTAL STATUS, UNSPECIFIED Qualifiers: Altered mental status type: unspecified Qualified Code(s): R41.82 - Altered mental status, unspecified (3) Hyperkalemia Code(s): E87.5 - HYPERKALEMIA (4) Uremia Code(s): N19 - UNSPECIFIED KIDNEY FAILURE Assessment/Plan Current Medications Generic Name Dose Route Start Last Admin Trade Name Freq PRN Reason Stop Dose Admin Chlorhexidine Gluconate 1 applic 08/18/19 22:00 Hibiclens For Decolonization - TP HS NU Heparin Sodium (Porcine) 5,000 unit 08/19/19 06:00 Heparin - SQ TID NU Norepinephrine Bitartrate 8,000 mcg in 500 mls @ 18.75 mls/hr 08/18/19 12:30 08/18/19 14:38 Levophed Bag IVPB 5 mcg/min TITR NU 18.75 mls/hr Titration Protocol 5 MCG/MIN Vasopressin 40 units/ Sodium 100 mls @ 5 mls/hr 08/18/19 13:00 08/18/19 14:43 Chloride IVPB Not Given ASDIR NU Protocol 2 UNITS/HR Sodium Bicarbonate 100 meq/ 1,100 mls @ 125 mls/hr 08/18/19 14:45 07/03/20 14:50 Dextrose IV 125 mls/hr Q8H NU Administration Cefepime HCl 2 gm in 50 mls @ 100 mls/hr 08/18/19 15:30 Maxipime 2gm Ivpb (Premix) IVPB Q12H NU Protocol Metronidazole 500 mg in 100 mls @ 100 mls/hr 08/18/19 15:30 Flagyl 500mg Premixed Ivpb - IVPB Q8H-IV NU Cefepime HCl 2 gm/ Dextrose 100 mls @ 100 mls/hr 08/18/19 16:00 IVPB 08/18/19 16:59 ONCE ONE Protocol Mupirocin 1 applic 08/18/19 22:00 Bactroban Ointment (For Decolonization) - NS 08/23/19 21:59 BID NU Laboratory Tests 08/18/19 12:50 Urine Protein 1+ H Urine Blood Negative Impression 1. KERLINE 2. hyperkalemia 3. shock 4. altered mental status 5. hypotension 6. r/o covid 7. lymphadenopathy on ct scan 8. sepsis 9. hx diverticulitis 10. asthma 11. liver cirrhosis 12. met acidosis Plan - pt is not making urine - pt responding to fluids - bicarb improving - first bmp was hemolyzed - cont with bicarb - monitor urine output - will order serologic workup and vasculitis workup ( neg blood in urine, low susp) - check covid serology - monitor mental status, get neuro eval - discussed with ICU team - discussed with ER at bedside - maintain rosario - no indication for acute HD as he is responding to therapy - pressors to map 65 - monitor pulse ox
[2019-08-18] MEDS ORDERED: LACTATED RINGERS SOLUTION 1,000 ML/1,000 ML INFUS.BAG IV STA (15:49)
[2019-08-18] MEDS ORDERED: CEFEPIME HCL/D5W 2 GM/50 ML BAG IVPB ONE (16:00)
[2019-08-18] MEDS ORDERED: CEFEPIME 2 GM in DEXTROSE 5%-WATER 100 ML IVPB ONE (16:00)
--- NOTE | 2019-08-18 16:11 | CONSULT ---
Consultation: REQUESTING PROVIDER: Dr. Vick CONSULT REQUEST: We have been asked to medically evaluate this patient for AMS. HISTORY OF PRESENT ILLNESS: Pt is a 48 y/o male with DM, HTN, tobacco use disorder, diverticulitis, cirrhosis (hx ETOH use disorder, has not drank in 1 year), and asthma who presents with AMS, brought in by his . He was previously seen at [facility] in mid July (07/29-08/03) for lethargy, chest pain, and possible viral pneumonitis. Pt had elevated d-dimer and ground glass opacities on CT which was concerning for COVID but pt was negative x2. Pt was briefly intubated during admission and requiring heavy sedation. CT head showed chronic basal infarct. LP was negative. EKG and troponins were unremarkable. He was treated empirically with ceftriaxone and acyclovir. He was discharged with doxycycline. Per , the pt has not fully recovered after discharge. He is still weak and recently fell down the stairs and broke his left foot. Timing is unclear. He is scheduled to have surgery next week at [facility]. She also reports he was given amlodipine at discharge and was hypotensive, so she took the pill bottle away from him several days ago. She saw today that he had the pill bottle again. She is unsure if he took any. She also reports decreased PO intake in the last week. Today, in the ED he complained of sudden onset burning substernal/epigastric chest pain. He was also lethargic and had difficulty answering questions. Medical records show pt reports returning from [place] in June, and pt self- quaranted. denies any recent travel or known covid contacts today. REVIEW OF SYSTEMS: see HPI PHYSICAL EXAMINATION Vital Signs - 24 hr 08/18/19 08/18/19 08/18/19 10:20 10:58 11:15 Temperature 93.9 F L Pulse Rate 69 Pulse Rate [ 68 69 Apical] Respiratory 12 14 15 Rate Blood Pressure 97/75 Blood Pressure 60/36 L 59/37 L [Right Arm] O2 Sat by Pulse 95 98 99 Oximetry (%) 08/18/19 08/18/19 08/18/19 12:05 12:25 12:45 Temperature 93.4 F L Pulse Rate Pulse Rate [ 70 74 87 Apical] Respiratory 14 15 17 Rate Blood Pressure Blood Pressure 64/39 L 70/34 L 109/60 [Right Arm] O2 Sat by Pulse 99 99 100 Oximetry (%) 08/18/19 08/18/19 08/18/19 13:00 13:30 14:37 Temperature 94.1 F L 95.2 F L Pulse Rate Pulse Rate [ 98 H 94 H 109 H Apical] Respiratory 22 H 15 15 Rate Blood Pressure Blood Pressure 98/56 L 102/62 124/58 L [Right Arm] O2 Sat by Pulse 100 99 100 Oximetry (%) 08/18/19 15:00 Temperature 96.2 F L Pulse Rate Pulse Rate [ 112 H Apical] Respiratory 18 Rate Blood Pressure Blood Pressure 105/60 [Right Arm] O2 Sat by Pulse 99 Oximetry (%) GENERAL: Lethargic, oriented x1 HEAD: Normal with no signs of trauma. EYES: Pupils equal, round and reactive to light, extraocular movements intact, conjunctiva clear. EARS, NOSE, THROAT: Ears normal, nares patent, moist mucous membranes. NECK: Normal range of motion, no JVD. LUNGS: Clear to auscultation anteriorly. On NC. HEART: Regular rate and rhythm, no murmur appreciated. Chest non-tender to palpation. ABDOMEN: Soft, nontender, not distended, normoactive bowel sounds, no ecchymosis. UPPER EXTREMITIES: Warm, well-perfused. No peripheral edema. LOWER EXTREMITIES: Warm, well-perfused. No calf tenderness. No peripheral edema. NEUROLOGICAL: Cranial nerves II-XII intact. Normal speech. Normal gait. PSYCHIATRIC: Cooperative. Good eye contact. Appropriate mood and affect. SKIN: Warm, dry, normal turgor, no rashes or lesions noted. Laboratory Results - last 24 hr 08/18/19 08/18/19 08/18/19 10:46 11:00 11:00 WBC 13.4 H RBC 3.93 L Hgb 11.9 Hct 35.9 D MCV 91.5 MCH 30.2 MCHC 33.0 RDW 16.1 H Plt Count 367 D MPV 8.9 Absolute Neuts (auto) 11.4 H Neutrophils % 85.2 H D Neutrophils % (Manual) 77.3 Band Neutrophils % 2.7 Lymphocytes % 8.7 D Lymphocytes % (Manual) 15.5 Monocytes % 5.3 Monocytes % (Manual) 2 L Eosinophils % 0.5 Eosinophils % (Manual) 0.0 Basophils % 0.3 Basophils % (Manual) 0.0 Myelocytes % (Man) 1 Promyelocytes % (Man) 1 Blast Cells % (Manual) 0 Nucleated RBC % 0 Metamyelocytes 1 Hypochromia 0 Platelet Estimate Normal Polychromasia 0 Poikilocytosis 0 Anisocytosis 0 Microcytosis 0 Macrocytosis 0 PT with INR INR PTT (Actin FS) Anticoagulation Therapy Puncture Site Patient Temperature ABG pH ABG pCO2 ABG pO2 ABG HCO3 ABG O2 Sat (Measured) ABG O2 Content ABG Base Excess Goran Test Patient On Oxygen O2 Delivery Device Oxygen Flow Rate Vent Mode Vent Rate Mechanical Rate PEEP Pressure Support Vent Sodium Potassium Chloride Carbon Dioxide Anion Gap BUN Creatinine Est GFR (CKD-EPI)AfAm Est GFR (CKD-EPI)NonAf POC Glucometer 178 Random Glucose Lactic Acid Calcium Magnesium Total Bilirubin AST ALT Alkaline Phosphatase Ammonia Creatine Kinase Creatine Kinase Index CK-MB (CK-2) Troponin I Total Protein Albumin TSH Urine Color Urine Appearance Urine pH Ur Specific [place] Urine Protein Urine Glucose (UA) Urine Ketones Urine Blood Urine Nitrite Urine Bilirubin Urine Urobilinogen Ur Leukocyte Esterase Urine WBC (Auto) Urine RBC (Auto) Urine Casts (Auto) U Epithel Cells (Auto) Urine Bacteria (Auto) Salicylates 3.1 Opiates Screen Methadone Screen Acetaminophen Barbiturate Screen Phencyclidine Screen Ur Amphetamines Screen MDMA (Ecstasy) Screen Benzodiazepines Screen Cocaine Screen U Marijuana (THC) Screen Alcohol, Quantitative 08/18/19 08/18/19 08/18/19 11:00 11:00 11:00 WBC RBC Hgb Hct MCV MCH MCHC RDW Plt Count MPV Absolute Neuts (auto) Neutrophils % Neutrophils % (Manual) Band Neutrophils % Lymphocytes % Lymphocytes % (Manual) Monocytes % Monocytes % (Manual) Eosinophils % Eosinophils % (Manual) Basophils % Basophils % (Manual) Myelocytes % (Man) Promyelocytes % (Man) Blast Cells % (Manual) Nucleated RBC % Metamyelocytes Hypochromia Platelet Estimate Polychromasia Poikilocytosis Anisocytosis Microcytosis Macrocytosis PT with INR 13.90 H INR 1.18 H PTT (Actin FS) 38.8 H Anticoagulation Therapy Puncture Site Patient Temperature ABG pH ABG pCO2 ABG pO2 ABG HCO3 ABG O2 Sat (Measured) ABG O2 Content ABG Base Excess Goran Test Patient On Oxygen O2 Delivery Device Oxygen Flow Rate Vent Mode Vent Rate Mechanical Rate PEEP Pressure Support Vent Sodium 121 L Potassium 6.4 H* Chloride 90 L Carbon Dioxide 8 L Anion Gap 23 H BUN 104.8 H* Creatinine 7.5 H* Est GFR (CKD-EPI)AfAm 9.11 Est GFR (CKD-EPI)NonAf 7.86 POC Glucometer Random Glucose 165 H Lactic Acid Calcium 7.7 L Magnesium 2.9 H Total Bilirubin 0.4 AST 25 ALT 20 Alkaline Phosphatase 107 Ammonia < 10.00 L Creatine Kinase 735 H Creatine Kinase Index 4.4 CK-MB (CK-2) 32.5 H Troponin I < 0.02 Total Protein 7.0 Albumin 3.2 L TSH Urine Color Urine Appearance Urine pH Ur Specific [place] Urine Protein Urine Glucose (UA) Urine Ketones Urine Blood Urine Nitrite Urine Bilirubin Urine Urobilinogen Ur Leukocyte Esterase Urine WBC (Auto) Urine RBC (Auto) Urine Casts (Auto) U Epithel Cells (Auto) Urine Bacteria (Auto) Salicylates Opiates Screen Methadone Screen Acetaminophen Barbiturate Screen Phencyclidine Screen Ur Amphetamines Screen MDMA (Ecstasy) Screen Benzodiazepines Screen Cocaine Screen U Marijuana (THC) Screen Alcohol, Quantitative 08/18/19 08/18/19 08/18/19 11:00 11:00 11:00 WBC RBC Hgb Hct MCV MCH MCHC RDW Plt Count MPV Absolute Neuts (auto) Neutrophils % Neutrophils % (Manual) Band Neutrophils % Lymphocytes % Lymphocytes % (Manual) Monocytes % Monocytes % (Manual) Eosinophils % Eosinophils % (Manual) Basophils % Basophils % (Manual) Myelocytes % (Man) Promyelocytes % (Man) Blast Cells % (Manual) Nucleated RBC % Metamyelocytes Hypochromia Platelet Estimate Polychromasia Poikilocytosis Anisocytosis Microcytosis Macrocytosis PT with INR INR PTT (Actin FS) Anticoagulation Therapy Puncture Site Patient Temperature ABG pH ABG pCO2 ABG pO2 ABG HCO3 ABG O2 Sat (Measured) ABG O2 Content ABG Base Excess Goran Test Patient On Oxygen O2 Delivery Device Oxygen Flow Rate Vent Mode Vent Rate Mechanical Rate PEEP Pressure Support Vent Sodium Potassium Chloride Carbon Dioxide Anion Gap BUN Creatinine Est GFR (CKD-EPI)AfAm Est GFR (CKD-EPI)NonAf POC Glucometer Random Glucose Lactic Acid 1.4 Calcium Magnesium Total Bilirubin AST ALT Alkaline Phosphatase Ammonia Creatine Kinase Creatine Kinase Index CK-MB (CK-2) Troponin I Total Protein Albumin TSH Urine Color Urine Appearance Urine pH Ur Specific [place] Urine Protein Urine Glucose (UA) Urine Ketones Urine Blood Urine Nitrite Urine Bilirubin Urine Urobilinogen Ur Leukocyte Esterase Urine WBC (Auto) Urine RBC (Auto) Urine Casts (Auto) U Epithel Cells (Auto) Urine Bacteria (Auto) Salicylates Opiates Screen Methadone Screen Acetaminophen 4.0 Barbiturate Screen Phencyclidine Screen Ur Amphetamines Screen MDMA (Ecstasy) Screen Benzodiazepines Screen Cocaine Screen U Marijuana (THC) Screen Alcohol, Quantitative < 3 08/18/19 08/18/19 08/18/19 12:15 12:50 12:50 WBC RBC Hgb Hct MCV MCH MCHC RDW Plt Count MPV Absolute Neuts (auto) Neutrophils % Neutrophils % (Manual) Band Neutrophils % Lymphocytes % Lymphocytes % (Manual) Monocytes % Monocytes % (Manual) Eosinophils % Eosinophils % (Manual) Basophils % Basophils % (Manual) Myelocytes % (Man) Promyelocytes % (Man) Blast Cells % (Manual) Nucleated RBC % Metamyelocytes Hypochromia Platelet Estimate Polychromasia Poikilocytosis Anisocytosis Microcytosis Macrocytosis PT with INR INR PTT (Actin FS) Anticoagulation Therapy Puncture Site Patient Temperature ABG pH ABG pCO2 ABG pO2 ABG HCO3 ABG O2 Sat (Measured) ABG O2 Content ABG Base Excess Goran Test Patient On Oxygen O2 Delivery Device Oxygen Flow Rate Vent Mode Vent Rate Mechanical Rate PEEP Pressure Support Vent Sodium 126 L Potassium 6.3 H* Chloride 95 L Carbon Dioxide 5 L Anion Gap 26 H BUN 103.6 H Creatinine 7.3 H Est GFR (CKD-EPI)AfAm 9.42 Est GFR (CKD-EPI)NonAf 8.12 POC Glucometer Random Glucose 132 H Lactic Acid Calcium 7.1 L Magnesium Total Bilirubin AST ALT Alkaline Phosphatase Ammonia Creatine Kinase Creatine Kinase Index CK-MB (CK-2) Troponin I < 0.02 Total Protein Albumin TSH 2.57 Urine Color Yellow Urine Appearance Clear Urine pH 5.0 D Ur Specific [place] 1.017 Urine Protein 1+ H Urine Glucose (UA) Negative Urine Ketones Negative Urine Blood Negative Urine Nitrite Negative Urine Bilirubin Negative Urine Urobilinogen 0.2 Ur Leukocyte Esterase Negative Urine WBC (Auto) 8 Urine RBC (Auto) 6 Urine Casts (Auto) 4 U Epithel Cells (Auto) 18 Urine Bacteria (Auto) 6 Salicylates Opiates Screen Negative Methadone Screen Negative Acetaminophen Barbiturate Screen Negative Phencyclidine Screen Negative Ur Amphetamines Screen Negative MDMA (Ecstasy) Screen Negative Benzodiazepines Screen Negative Cocaine Screen Negative U Marijuana (THC) Screen Negative Alcohol, Quantitative 08/18/19 08/18/19 14:20 14:20 WBC RBC Hgb Hct MCV MCH MCHC RDW Plt Count MPV Absolute Neuts (auto) Neutrophils % Neutrophils % (Manual) Band Neutrophils % Lymphocytes % Lymphocytes % (Manual) Monocytes % Monocytes % (Manual) Eosinophils % Eosinophils % (Manual) Basophils % Basophils % (Manual) Myelocytes % (Man) Promyelocytes % (Man) Blast Cells % (Manual) Nucleated RBC % Metamyelocytes Hypochromia Platelet Estimate Polychromasia Poikilocytosis Anisocytosis Microcytosis Macrocytosis PT with INR INR PTT (Actin FS) Anticoagulation Therapy No Result Required. Puncture Site No Result Required. Patient Temperature No Result Required. ABG pH 7.142 L* ABG pCO2 21.00 L ABG pO2 181.2 H ABG HCO3 7.0 L ABG O2 Sat (Measured) 98.9 H ABG O2 Content No Result Required. ABG Base Excess -20.1 L Goran Test No Result Required. Patient On Oxygen No Result Required. O2 Delivery Device No Result Required. Oxygen Flow Rate No Result Required. Vent Mode No Result Required. Vent Rate No Result Required. Mechanical Rate No Result Required. PEEP No Result Required. Pressure Support Vent No Result Required. Sodium 129 L Potassium 3.9 Chloride 102 Carbon Dioxide 8 L Anion Gap 19 H BUN 98.0 H Creatinine 6.1 H Est GFR (CKD-EPI)AfAm 11.70 Est GFR (CKD-EPI)NonAf 10.09 POC Glucometer Random Glucose 159 H Lactic Acid Calcium 7.4 L Magnesium Total Bilirubin AST ALT Alkaline Phosphatase Ammonia Creatine Kinase Creatine Kinase Index CK-MB (CK-2) Troponin I Total Protein Albumin TSH Urine Color Urine Appearance Urine pH Ur Specific [place] Urine Protein Urine Glucose (UA) Urine Ketones Urine Blood Urine Nitrite Urine Bilirubin Urine Urobilinogen Ur Leukocyte Esterase Urine WBC (Auto) Urine RBC (Auto) Urine Casts (Auto) U Epithel Cells (Auto) Urine Bacteria (Auto) Salicylates Opiates Screen Methadone Screen Acetaminophen Barbiturate Screen Phencyclidine Screen Ur Amphetamines Screen MDMA (Ecstasy) Screen Benzodiazepines Screen Cocaine Screen U Marijuana (THC) Screen Alcohol, Quantitative Active Medications Current Medications Generic Name Dose Route Start Last Admin Trade Name Kaiq PRN Reason Stop Dose Admin Chlorhexidine Gluconate 1 applic 08/18/19 22:00 08/18/19 22:40 Hibiclens For Decolonization - TP 1 applic HS NU Administration Heparin Sodium (Porcine) 5,000 unit 08/19/19 10:00 Heparin - SQ TID NU Norepinephrine Bitartrate 8,000 mcg in 500 mls @ 18.75 mls/hr 08/18/19 12:30 08/19/19 02:29 Levophed Bag IVPB 0 mcg/min TITR NU 0 mls/hr Titration Protocol 5 MCG/MIN Vasopressin 40 units/ Sodium 100 mls @ 5 mls/hr 08/18/19 13:00 08/18/19 14:43 Chloride IVPB Not Given ASDIR NU Protocol 2 UNITS/HR Sodium Bicarbonate 100 meq/ 1,100 mls @ 125 mls/hr 08/18/19 14:45 08/19/19 01:11 Dextrose IV 125 mls/hr Q8H NU Administration Metronidazole 500 mg in 100 mls @ 100 mls/hr 08/18/19 15:30 08/19/19 02:07 Flagyl 500mg Premixed Ivpb - IVPB 100 mls/hr Q8H-IV NU Administration Famotidine/Sodium Chloride 20 mg in 50 mls @ 100 mls/hr 08/19/19 10:00 Pepcid 20 Mg Premixed Ivpb - IVPB BID NU Mupirocin 1 applic 08/18/19 22:00 08/18/19 22:45 Bactroban Ointment (For Decolonization) - NS 08/23/19 21:59 Not Given BID NU Thiamine HCl 200 mg 08/19/19 03:30 Vitamin B1 Injection - IVPB 08/21/19 03:29 Q8H NU ASSESSMENT/PLAN: Pt is a 48 y/o male with DM, HTN, tobacco use disorder, diverticulitis, cirrhosis (hx ETOH use disorder, has not drank in 1 year), and asthma who presents with AMS, brought in by his . He was recently hospitalized (07/29- 08/04) for similar symptoms with no definitive diagnosis. #neuro -A&Ox1, lethargic -CT in July showed chronic right basal ganglia infarct, otherwise unremarkable -?hx ETOH use, consider Wernicke's -IV thiamine 200mg Q8H for 2-7 days #cardio -shock -pt initially hypotensive, responded to fluids and pressors -gradually decreased levo and now off pressor #pulm -CT chest shows b/l groundglass opacities but are not consistent with COVID pattern, consider COVID but lower on differential -COVID test x2 negative in the last 3 weeks -keep SpO2 >88 #renal -KERLINE -Cr on records from last month WNL -Cr 6.1 at presentation, initial labs hemolyzed -sodium bicarb in D5W for IV fluids -renal following #ID -concern for COVID, viral PNA, bacterial PNA, acute colitis -r/o septic shock -Flagyl 500mg Q8H -cefepime 1g Q24H based on CrCl 13 -ID consult #GI -CT abd shows transverse and ascending chronic vs acute colitis -c/o abdominal/chest pain/burning during this admission and noted at [place] -start Pepcid 20mg IV BID, if improves symptoms, consider pantoprazole DVT Ppx heparin FEN sodium bicarb in D5W @125mL/hr monitor K, Cr NPO Dispo: ICU. We will continue to follow the patient. Thank you for this consultative opportunity. FULL CODE Visit type - Emergency Visit Emergency Visit: Yes ED Registration Date: 08/18/19 Care time: The patient presented to the Emergency Department on the above date and was hospitalized for further evaluation of their emergent condition. - New Patient This patient is new to me today: Yes Date on this admission: 08/18/19 - Critical Care Critical Care patient: Yes Total Critical Care Time (in minutes): 40 Critical Care Statement: The care of this patient involved high complexity decision making to prevent further life threatening deterioration of the patient's condition and/or to evaluate & treat vital organ system(s) failure or risk of failure. ATTENDING PHYSICIAN STATEMENT I saw and evaluated the patient. I reviewed the resident's note and discussed the case with the resident. I agree with the resident's findings and plan as documented. SUBJECTIVE: OBJECTIVE: ASSESSMENT AND PLAN:
[2019-08-18] MEDS ORDERED: HALOPERIDOL LACTATE 5 MG/ML IM ONE (16:28)
[2019-08-18] MEDS ORDERED: CEFEPIME 1 GM in DEXTROSE 5%-WATER 100 ML IVPB ONE (16:45)
--- NOTE | 2019-08-18 16:53 | PN ---
Progress Note (short form) - Note Progress Note: Pt received in ICU. Found to be alert to person and time but unable to recall recent events. Will break the glass on [facility] for emergency treatment. Pt's family believes he had a similar presentation at another hospital. Noted recent negative COVID-19 by [facility]. Unable to review any further laboratory, radiology, or physician documentation from the visit. Will continue to attempt to obtain records.
[2019-08-18] MEDS ORDERED: PNEUMOC 13-VAL CONJ-DIP CRM/PF 0.5 ML DISP.SYRIN IM ONE (17:06)
[2019-08-18] MEDS ORDERED: PNEUMOCOCCAL 23 VACCINE 0.5 ML VIAL IM ONE (18:30)
[2019-08-18] MEDS: CHLORHEXIDINE GLUCONATE 4% CLEANSER FOR DECOLONIZATION TP SCH (22:40)
[2019-08-18] MEDS: MUPIROCIN 2% TOPICAL OINTMENT FOR DECOLONIZATION NS SCH (22:45)
[2019-08-18] MEDS ORDERED: ACETAMINOPHEN 1000 MG/100 ML VIAL (NON FORMULARY) IVPB ONE (23:12)
[2019-08-19] MEDS: SODIUM BICARBONATE 8.4% - 100 MEQ in DEXTROSE 5%-WATER - 1,000 ML IV SCH ×2 (01:11→06:41)
[2019-08-19] MEDS: THIAMINE HCL 200 MG/2 ML VIAL IVPB SCH ×3 (05:01→19:49)
[2019-08-19] MEDS: HEPARIN NA (PORCINE) 5,000 UNITS/ML 1ML VIAL SQ SCH ×3 (05:31→21:28)
[2019-08-19] MEDS ORDERED: HEPARIN NA (PORCINE) 5,000 UNITS/ML 1ML VIAL SQ SCH (06:00)
[2019-08-19 07:52] LABS: BASO % 0.1 % (0-2.0); EOS % 0.8 % (0-4.5); HEMATOCRIT 34.9 % (35.4-49); HEMOGLOBIN 12.1 GM/dL (11.7-16.9); LYMPH % 11.8 % (8-40); MCH 30.6 pg (25.7-33.7); MCHC 34.7 g/dl (32.0-35.9); MEAN CELL VOLUME 88.2 fl (80-96); MEAN PLT VOLUME 8.6 fl (7.5-11.1); NEUT % 79.3 % (42.8-82.8); PLATELET COUNT 376 K/MM3 (134-434); RBC 3.96 M/mm3 (4.00-5.60); RDW 16.3 % (11.9-15.9); WHITE BLOOD COUNT 9.9 K/mm3 (4.0-10.0)
[2019-08-19 08:15] LABS: ALBUMIN 2.8 g/dl (3.4-5.0); BILIRUBIN,TOTAL 0.3 mg/dL (0.2-1); BLOOD UREA NITROGEN 73.9 mg/dL (7-18); CALCIUM 7.3 mg/dL (8.5-10.1); CREATININE 3.2 mg/dL (0.55-1.3); MAGNESIUM 1.8 mg/dL (1.8-2.4); PHOSPHOROUS 5.1 mg/dL (2.5-4.9); POTASSIUM 3.2 mmol/L (3.5-5.1); TOT PROT 6.3 g/dl (6.4-8.2)
[2019-08-19] MEDS: MUPIROCIN 2% TOPICAL OINTMENT FOR DECOLONIZATION NS SCH ×2 (09:38→21:15)
[2019-08-19] MEDS ORDERED: FAMOTIDINE 20 MG/50 ML IVPB 20 MG/50 ML MG IVPB SCH (10:00)
--- NOTE | 2019-08-19 10:43 | PN ---
Progress Note (short form) - Note Progress Note: RENAL Pt is awake but does not respond to questions verbally appears in discomfort Last Vital Signs Temp Pulse Resp BP Pulse Ox 98.5 F 112 H 16 136/78 98 08/19/19 08:00 08/19/19 08:00 08/19/19 08:00 08/19/19 08:00 08/19/19 09:00 lungs clear cvs s1s2 rr +rupali abd soft, bs, +luq tenderness ext no edema neuro awake CBC, BMP 08/19/19 05:50 08/19/19 05:50 Current Medications Generic Name Dose Route Start Last Admin Trade Name Freq PRN Reason Stop Dose Admin Chlorhexidine Gluconate 1 applic 08/18/19 22:00 08/18/19 22:40 Hibiclens For Decolonization - TP 1 applic HS NU Administration Heparin Sodium (Porcine) 5,000 unit 08/19/19 06:00 08/19/19 05:31 Heparin - SQ 5,000 unit TID NU Administration Norepinephrine Bitartrate 8,000 mcg in 500 mls @ 18.75 mls/hr 08/18/19 12:30 08/19/19 02:29 Levophed Bag IVPB 0 mcg/min TITR NU 0 mls/hr Titration Protocol 5 MCG/MIN Vasopressin 40 units/ Sodium 100 mls @ 5 mls/hr 08/18/19 13:00 08/18/19 14:43 Chloride IVPB Not Given ASDIR NU Protocol 2 UNITS/HR Sodium Bicarbonate 100 meq/ 1,100 mls @ 125 mls/hr 08/18/19 14:45 08/19/19 06:41 Dextrose IV Not Given Q8H NU Metronidazole 500 mg in 100 mls @ 100 mls/hr 08/18/19 15:30 08/19/19 09:32 Flagyl 500mg Premixed Ivpb - IVPB 100 mls/hr Q8H-IV NU Administration Famotidine/Sodium Chloride 20 mg in 50 mls @ 100 mls/hr 08/19/19 10:00 08/19/19 09:32 Pepcid 20 Mg Premixed Ivpb - IVPB 100 mls/hr BID NU Administration Mupirocin 1 applic 08/18/19 22:00 08/19/19 09:38 Bactroban Ointment (For Decolonization) - NS 08/23/19 21:59 1 applic BID NU Administration Thiamine HCl 200 mg 08/19/19 03:30 08/19/19 05:01 Vitamin B1 Injection - IVPB 08/21/19 03:29 200 mg Q8H NU Administration Impression 1. KERLINE improved 2. hyperkalemia 3. shock 4. altered mental status 5. hypotension 6. r/o covid 7. lymphadenopathy on ct scan 8. sepsis 9. hx diverticulitis 10. asthma 11. liver cirrhosis 12. met acidosis- sever Plan keep hydrated, pt is making significant amounts of urine- ?diuretic phase of ATN switch ivf to d5w at same rate add desmopressin 2mcg every 6 hours until sodium drops to 130 check serum osmolality and calculate osmolal gap neuro eval MV
--- NOTE | 2019-08-19 11:16 | PN ---
Teaching Attending Note Name of Resident: Corazon West ATTENDING PHYSICIAN STATEMENT I saw and evaluated the patient. I reviewed the resident's note and discussed the case with the resident. I agree with the resident's findings and plan as documented. SUBJECTIVE: Pt seen and examined in the ICU. Remains confused. Off pressors. Urine output improving and renal function improving. OBJECTIVE: Vital Signs Period Temp Pulse Resp BP Sys/Lopez Pulse Ox Last 24 Hr 93.4 F-99.3 F 70-123 14-26 64-142/34-78 2-100 Intake & Output 08/16/19 08/17/19 08/18/19 08/19/19 23:59 23:59 23:59 23:59 Intake Total 6857.5 1096.5 Output Total 2475 4800 Balance 4382.5 -3703.5 Weight 77.111 kg 95.844 kg Gen: altered Heart: RRR Lung: decreased breath sounds at the bases Abd: soft, some TTP LUQ Ext: no edema CBC, BMP 08/19/19 05:50 08/19/19 05:50 Active Medications Chlorhexidine Gluconate (Hibiclens For Decolonization -) 1 applic TP HS NU Last Admin: 08/18/19 22:40 Dose: 1 applic Documented by: Heparin Sodium (Porcine) (Heparin -) 5,000 unit SQ TID NU Last Admin: 08/19/19 05:31 Dose: 5,000 unit Documented by: Norepinephrine Bitartrate (Levophed Bag) 8,000 mcg in 500 mls @ 18.75 mls/hr IVPB TITR NU; Protocol Last Titration: 08/19/19 02:29 Dose: 0 mcg/min, 0 mls/hr Documented by: Vasopressin 40 units/ Sodium (Chloride) 100 mls @ 5 mls/hr IVPB ASDIR NU; Protocol Last Admin: 08/18/19 14:43 Dose: Not Given Documented by: Metronidazole (Flagyl 500mg Premixed Ivpb -) 500 mg in 100 mls @ 100 mls/hr IVPB Q8H-IV NU Last Admin: 08/19/19 09:32 Dose: 100 mls/hr Documented by: Famotidine/Sodium Chloride (Pepcid 20 Mg Premixed Ivpb -) 20 mg in 50 mls @ 100 mls/hr IVPB BID NU Last Admin: 08/19/19 09:32 Dose: 100 mls/hr Documented by: Mupirocin (Bactroban Ointment (For Decolonization) -) 1 applic NS BID [facility] Stop: 08/23/19 21:59 Last Admin: 08/19/19 09:38 Dose: 1 applic Documented by: Thiamine HCl (Vitamin B1 Injection -) 200 mg IVPB Q8H [facility] Stop: 08/21/19 03:29 Last Admin: 08/19/19 05:01 Dose: 200 mg Documented by: ASSESSMENT AND PLAN: Acute Kidney Injury Hyperkalemia Hyponatremia Acute Colitis h/o Diverticulitis Septic Shock resolving CAD Liver Cirrhosis Asthma HTN DM - continue antibiotics - f/u cultures - increase free water - desmopressin per renal - monitor sodium closely - monitor urine output, creatinine - off pressors, maintain MAP >65 - aspiration precautions - DVT prophylaxis - continue ICU monitoring
[2019-08-19] MEDS ORDERED: DESMOPRESSIN ACETATE 0.2 MG TABLET PO SCH (11:30)
[2019-08-19] MEDS ORDERED: DESMOPRESSIN ACETATE 4 MCG/ML AMP SQ SCH ×2 (12:00→12:15)
[2019-08-19] MEDS ORDERED: DEXTROSE 5%-WATER - 1,000 ML IV SCH ×4 (12:15→18:58)
--- NOTE | 2019-08-19 12:32 | CONSULT ---
Consult - text type - Consultation Consultation Note: Neurology HISTORY OF PRESENT ILLNESS: Pt is a 48 y/o male with DM, HTN, tobacco use disorder, diverticulitis, cirrhosis (hx ETOH use disorder, has not drank in 1 year), and asthma who presents with AMS, brought in by his on day admission. Medical records indicate, pt reported returning from [place] in June, and pt self-quaranted. denies any recent travel or known covid contacts on day of admission. He was previously seen at [facility] in mid July (07/29-08/03) for lethargy, chest pain, and possible viral pneumonitis. Pt had elevated d-dimer and ground glass opacities on CT which was concerning for COVID but pt was negative x2. Pt was briefly intubated during admission and requiring heavy sedation. CT head showed chronic basal infarct. LP was negative. EKG and troponins were unremarkable. He was treated empirically with ceftriaxone and acyclovir. He was discharged with doxycycline. Per , the pt has not fully recovered after discharge. He is still weak and recently fell down the stairs and broke his left foot. Timing is unclear. He is scheduled to have surgery next week at [facility]. She also reports he was given amlodipine at discharge and was hypotensive, so she took the pill bottle away from him several days ago. She saw today that he had the pill bottle again. She is unsure if he took any. She also reports decreased PO intake in the last week. On day of admission, presented in the ED he complained of sudden onset burning substernal/epigastric pain. He remains lethargic and has difficulty answering questions. Is more arousable and was able to mumble words but not fully participating with examiner. Did squeeze his hand when asked to but could not participate in Confrontation testing. Repeat CT head without acute changes, MRI brain recommended. Remains in ICU under critical care monitoring. Medical/Surgical Hx - Social History: Smoking - hx of tobacco use Alcohol - hx of alcohol, has not drank in 1 year Family History: Htn Ambulatory Orders Gabapentin 600 mg PO TID 08/18/19 Losartan/Hydrochlorothiazide [Losartan-Hctz 50-12.5 mg Tab] 1 each PO DAILY 08/18/19 Metoprolol Succinate [Toprol Xl] 25 mg PO DAILY 08/18/19 Oxycodone HCl/Acetaminophen [Percocet 5-325 mg Tablet] 7.5 - 325 mg PO TID PRN 08/18/19 Active Medications Chlorhexidine Gluconate (Hibiclens For Decolonization -) 1 applic TP HS [facility] Last Admin: 08/18/19 22:40 Dose: 1 applic Documented by: Desmopressin Acetate (Ddavp Injection -) 2 mcg SQ Q6H NU Heparin Sodium (Porcine) (Heparin -) 5,000 unit SQ TID [facility] Last Admin: 08/19/19 05:31 Dose: 5,000 unit Documented by: Norepinephrine Bitartrate (Levophed Bag) 8,000 mcg in 500 mls @ 18.75 mls/hr IVPB TITR [facility]; Protocol Last Titration: 08/19/19 02:29 Dose: 0 mcg/min, 0 mls/hr Documented by: Vasopressin 40 units/ Sodium (Chloride) 100 mls @ 5 mls/hr IVPB ASDIR [facility]; Protocol Last Admin: 08/18/19 14:43 Dose: Not Given Documented by: Metronidazole (Flagyl 500mg Premixed Ivpb -) 500 mg in 100 mls @ 100 mls/hr IVPB Q8H-IV [facility] Last Admin: 08/19/19 09:32 Dose: 100 mls/hr Documented by: Famotidine/Sodium Chloride (Pepcid 20 Mg Premixed Ivpb -) 20 mg in 50 mls @ 100 mls/hr IVPB BID [facility] Last Admin: 08/19/19 09:32 Dose: 100 mls/hr Documented by: Dextrose (D5w -) 1,000 mls @ 75 mls/hr IV ASDIR [facility] Mupirocin (Bactroban Ointment (For Decolonization) -) 1 applic NS BID [facility] Stop: 08/23/19 21:59 Last Admin: 08/19/19 09:38 Dose: 1 applic Documented by: Thiamine HCl (Vitamin B1 Injection -) 200 mg IVPB Q8H [facility] Stop: 08/21/19 03:29 Last Admin: 08/19/19 05:01 Dose: 200 mg Documented by: REVIEW OF SYSTEMS: limited by mental status, + stomach pain PHYSICAL EXAMINATION Vital Signs Period Temp Pulse Resp BP Sys/Lopez Pulse Ox Last 24 Hr 93.4 F-99.3 F 87-123 14-26 98-142/56-81 2-100 GENERAL: Lethargic, oriented x1 HEAD: Normal with no signs of trauma. EYES: Pupils equal, round and reactive to light, extraocular movements intact, conjunctiva clear. EARS, NOSE, THROAT: Ears normal, nares patent, moist mucous membranes. NECK: Normal range of motion, no JVD. LUNGS: Clear to auscultation anteriorly. On NC. HEART: Regular rate and rhythm, no murmur appreciated. Chest non-tender to palpation. ABDOMEN: Soft, nontender, not distended, normoactive bowel sounds, no ecchymosis. UPPER EXTREMITIES: Warm, well-perfused. No peripheral edema. LOWER EXTREMITIES: Warm, well-perfused. No calf tenderness. No peripheral edema. NEUROLOGICAL: Cranial nerves II-XII intact. Moving Extremity's grossly, squeezing hand at command, open the eyes on command, sensory intact to light touch PSYCHIATRIC: Cooperative. Good eye contact. Appropriate mood and affect. SKIN: Warm, dry, normal turgor, no rashes or lesions noted. CBCD WBC 9.9 K/mm3 (4.0-10.0) 08/19/19 05:50 RBC 3.96 M/mm3 (4.00-5.60) L 08/19/19 05:50 Hgb 12.1 GM/dL (11.7-16.9) 08/19/19 05:50 Hct 34.9 % (35.4-49) L 08/19/19 05:50 MCV 88.2 fl (80-96) 08/19/19 05:50 MCHC 34.7 g/dl (32.0-35.9) 08/19/19 05:50 RDW 16.3 % (11.9-15.9) H 08/19/19 05:50 Plt Count 376 K/MM3 (134-434) 08/19/19 05:50 MPV 8.6 fl (7.5-11.1) 08/19/19 05:50 CMP Sodium 137 mmol/L (136-145) 08/19/19 05:50 Potassium 3.2 mmol/L (3.5-5.1) L 08/19/19 05:50 Chloride 103 mmol/L (98-107) 08/19/19 05:50 Carbon Dioxide 16 mmol/L (21-32) L 08/19/19 05:50 Anion Gap 18 MMOL/L (8-16) H 08/19/19 05:50 BUN 73.9 mg/dL (7-18) H 08/19/19 05:50 Creatinine 3.2 mg/dL (0.55-1.3) H 08/19/19 05:50 Random Glucose 141 mg/dL (74-106) H 08/19/19 05:50 Calcium 7.3 mg/dL (8.5-10.1) L 08/19/19 05:50 Total Bilirubin 0.3 mg/dL (0.2-1) 08/19/19 05:50 AST 32 U/L (15-37) 08/19/19 05:50 ALT 21 U/L (13-61) 08/19/19 05:50 Alkaline Phosphatase 109 U/L (45-117) 08/19/19 05:50 Total Protein 6.3 g/dl (6.4-8.2) L 08/19/19 05:50 Albumin 2.8 g/dl (3.4-5.0) L 08/19/19 05:50 CARDIAC ENZYMES Creatine Kinase 735 U/L (26-308) H 08/18/19 11:00 Troponin I < 0.02 ng/ml (0.00-0.05) 08/18/19 12:15 ASSESSMENT/PLAN: Pt is a 48 y/o male with DM, HTN, tobacco use disorder, diverticulitis, cirrhosis (hx ETOH use disorder, has not drank in 1 year), and asthma who presents with AMS, brought in by his . He was recently hospitalized (07/29- 08/04) for similar symptoms with no definitive diagnosis. Medical records indicate, pt reported returning from [place] in June, and pt self-quaranted. denies any recent travel or known covid contacts on day of admission. He was previously seen at [facility] in mid July (07/29-08/03) for lethargy, chest pain, and possible viral pneumonitis. Pt had elevated d-dimer and ground glass opacities on CT which was concerning for COVID but pt was negative x2. Pt was briefly intubated during admission and requiring heavy sedation. CT head showed chronic basal infarct. LP was negative. EKG and troponins were unremarkable. He was treated empirically with ceftriaxone and acyclovir. He was discharged with doxycycline. Per , the pt has not fully recovered after discharge. He is still weak and recently fell down the stairs and broke his left foot. Timing is unclear. He is scheduled to have surgery next week at [facility]. She also reports he was given amlodipine at discharge and was hypotensive, so she took the pill bottle away from him several days ago. She saw today that he had the pill bottle again. She is unsure if he took any. She also reported decreased PO intake in the last week. On day of admission, presented in the ED he complained of sudden onset burning substernal/epigastric chest pain. He remains lethargic and has difficulty answering questions. Is more arousable and was able to mumble words but not fully participating with examiner. Did squeeze his hand when asked to but could not participate in Confrontation testing. CT head without acute changes, MRI brain recommended. Continue medical optimization for altered mental status and toxic metabolic and cephalopathy. Maintain adequate hydration, monitor blood pressure, maintain normotensive range. Continued close monitoring in ICU, critcal care time 40 mins.
[2019-08-19 12:41] LABS: COCAINE, UR NEGATIVE ng/ml (CUTOFF=300); METHADONE, UR NEGATIVE ng/ml (CUTOFF=300); OPIATES, URI NEGATIVE ng/ml (CUTOFF=300); PHENCYCLIDINE,URINE NEGATIVE ng/ml (CUTOFF=25); URINE BARBITURATES NEGATIVE ng/ml (CUTOFF=200); URINE BENZODIAZEPINES NEGATIVE ng/ml (CUTOFF=200)
[2019-08-19 12:42] LABS: URINE AMPHETAMINES NEGATIVE ng/ml (CUTOFF=500)
[2019-08-19 12:46] LABS: PH,URINE 5.5 (5.0-8.0); URINE APPEARANCE CLEAR; URINE BILIRUBIN NEGATIVE (NEGATIVE); URINE COLOR YELLOW; URINE GLUCOSE (UA) NEGATIVE (NEGATIVE); URINE KETONE NEGATIVE (NEGATIVE); URINE LEUK ESTERASE NEGATIVE (NEGATIVE); URINE NITRITE NEGATIVE (NEGATIVE); URINE PROTEIN TRACE (NEGATIVE); URINE UROBILINOGEN 0.2 mg/dL (0.2-1.0)
[2019-08-19] MEDS: DESMOPRESSIN ACETATE 4 MCG/ML AMP SQ SCH ×2 (13:05→17:49)
[2019-08-19 16:20] LABS: BLOOD UREA NITROGEN 66.1 mg/dL (7-18); CALCIUM 7.2 mg/dL (8.5-10.1); CREATININE 2.3 mg/dL (0.55-1.3)
[2019-08-19 16:32] LABS: POTASSIUM 2.8 mmol/L (3.5-5.1)
[2019-08-19] MEDS: POTASSIUM CHLORIDE ORAL LIQUID 20 MEQ/15 ML PO ONE ×2 (16:51→17:09)
[2019-08-19] MEDS: PANTOPRAZOLE SODIUM 40 MG VIAL IVPUSH SCH (16:51)
[2019-08-19] MEDS: KCL 10 MEQ IVPB 10 MEQ/100 ML INFUS.BAG IVPB SCH ×5 (16:51→23:54)
[2019-08-19 18:14] LABS: BLOOD UREA NITROGEN 60.3 mg/dL (7-18); CALCIUM 7.4 mg/dL (8.5-10.1); CREATININE 1.8 mg/dL (0.55-1.3); POTASSIUM 3.1 mmol/L (3.5-5.1)
[2019-08-19 18:47] LABS: MAGNESIUM 1.8 mg/dL (1.8-2.4)
[2019-08-19] MEDS ORDERED: POTASSIUM CHLORIDE ORAL LIQUID 20 MEQ/15 ML PO ONE (18:51)
[2019-08-19] MEDS ORDERED: ACETAMINOPHEN WITH CODEINE 300MG/30MG TABLET PO ONE (18:52)
[2019-08-19] MEDS ORDERED: ACETAMINOPHEN 1000 MG/100 ML VIAL (NON FORMULARY) IVPB ONE (18:57)
[2019-08-19 20:22] LABS: BLOOD UREA NITROGEN 58.6 mg/dL (7-18); CALCIUM 7.6 mg/dL (8.5-10.1); CREATININE 1.7 mg/dL (0.55-1.3); POTASSIUM 3.2 mmol/L (3.5-5.1)
[2019-08-19] MEDS: CHLORHEXIDINE GLUCONATE 4% CLEANSER FOR DECOLONIZATION TP SCH (21:15)
--- NOTE | 2019-08-19 21:38 | PN ---
Progress Note (short form) - Note Progress Note: ID CONSULT DICTATED
--- NOTE | 2019-08-19 23:22 | PN ---
Physical Exam: SUBJECTIVE: Patient seen and examined, difficult to arouse in the morning but did respond to some questions. Urine output for 08/19/2019 6550cc. Was lethargic in the morning but mental status improved throughout the day, especially when was visiting. OBJECTIVE: Vital Signs Period Temp Pulse Resp BP Sys/Lopez Pulse Ox Last 24 Hr 98.4 F-99.4 F 104-120 14-26 106-170/69-97 98 GENERAL: The patient is lethargic, oriented only to location, and appears to be in mild distress. HEAD: Normal with no signs of trauma. Has tender firm nodule on L parietal area of scalp NECK: full range of motion. LUNGS: Breath sounds equal, clear to auscultation bilaterally, no wheezes, no crackles. HEART: tachycardic, sinus rhythm, S1, S2 with diastolic murmur, no rub or gallop. ABDOMEN: Soft, nontender, distended, normoactive bowel sounds, mild guarding, no rebound, no hepatosplenomegaly, no masses. EXTREMITIES: warm, well-perfused, no edema. L foot in cast. R ankle tender to palpation NEUROLOGICAL: Normal speech, gait not observed. PSYCH: distressed mood, constricted affect. SKIN: Warm, no rashes or lesions noted Laboratory Results - last 24 hr 08/18/19 08/18/19 08/19/19 12:15 12:30 05:50 WBC 9.9 RBC 3.96 L Hgb 12.1 Hct 34.9 L MCV 88.2 MCH 30.6 MCHC 34.7 RDW 16.3 H Plt Count 376 MPV 8.6 Absolute Neuts (auto) 7.9 Neutrophils % 79.3 Lymphocytes % 11.8 D Monocytes % 8.0 Eosinophils % 0.8 Basophils % 0.1 Nucleated RBC % 0 Sodium Potassium Chloride Carbon Dioxide Anion Gap BUN Creatinine Est GFR (CKD-EPI)AfAm Est GFR (CKD-EPI)NonAf Random Glucose Serum Osmolality Calcium Phosphorus Magnesium Total Bilirubin AST ALT Alkaline Phosphatase Total Protein Albumin Cortisol AM Sample 16.8 Urine Color Urine Appearance Urine pH Ur Specific [place] Urine Protein Urine Glucose (UA) Urine Ketones Urine Blood Urine Nitrite Urine Bilirubin Urine Urobilinogen Ur Leukocyte Esterase Opiates Screen Methadone Screen Barbiturate Screen Phencyclidine Screen Ur Amphetamines Screen MDMA (Ecstasy) Screen Benzodiazepines Screen Cocaine Screen U Marijuana (THC) Screen COVID-19 (CARLENE) Not detected 08/19/19 08/19/19 08/19/19 05:50 12:00 12:15 WBC RBC Hgb Hct MCV MCH MCHC RDW Plt Count MPV Absolute Neuts (auto) Neutrophils % Lymphocytes % Monocytes % Eosinophils % Basophils % Nucleated RBC % Sodium 137 137 Potassium 3.2 L 2.8 L* Chloride 103 104 Carbon Dioxide 16 L 19 L Anion Gap 18 H 14 BUN 73.9 H 66.1 H Creatinine 3.2 H 2.3 H Est GFR (CKD-EPI)AfAm 25.52 38.05 Est GFR (CKD-EPI)NonAf 22.02 32.83 Random Glucose 141 H 168 H Serum Osmolality 304 Calcium 7.3 L 7.2 L Phosphorus 5.1 H Magnesium 1.8 Total Bilirubin 0.3 AST 32 ALT 21 Alkaline Phosphatase 109 Total Protein 6.3 L Albumin 2.8 L Cortisol AM Sample Urine Color Yellow Urine Appearance Clear Urine pH 5.5 Ur Specific [place] 1.014 Urine Protein Trace Urine Glucose (UA) Negative Urine Ketones Negative Urine Blood Negative Urine Nitrite Negative Urine Bilirubin Negative Urine Urobilinogen 0.2 Ur Leukocyte Esterase Negative Opiates Screen Methadone Screen Barbiturate Screen Phencyclidine Screen Ur Amphetamines Screen MDMA (Ecstasy) Screen Benzodiazepines Screen Cocaine Screen U Marijuana (THC) Screen COVID-19 (CARLENE) 08/19/19 08/19/19 08/19/19 12:15 16:20 19:20 WBC RBC Hgb Hct MCV MCH MCHC RDW Plt Count MPV Absolute Neuts (auto) Neutrophils % Lymphocytes % Monocytes % Eosinophils % Basophils % Nucleated RBC % Sodium 138 138 Potassium 3.1 L 3.2 L Chloride 106 106 Carbon Dioxide 20 L 17 L Anion Gap 13 15 BUN 60.3 H 58.6 H Creatinine 1.8 H 1.7 H Est GFR (CKD-EPI)AfAm 51.17 54.83 Est GFR (CKD-EPI)NonAf 44.15 47.31 Random Glucose 154 H 154 H Serum Osmolality Calcium 7.4 L 7.6 L Phosphorus Magnesium 1.8 Total Bilirubin AST ALT Alkaline Phosphatase Total Protein Albumin Cortisol AM Sample Urine Color Urine Appearance Urine pH Ur Specific [place] Urine Protein Urine Glucose (UA) Urine Ketones Urine Blood Urine Nitrite Urine Bilirubin Urine Urobilinogen Ur Leukocyte Esterase Opiates Screen Negative Methadone Screen Negative Barbiturate Screen Negative Phencyclidine Screen Negative Ur Amphetamines Screen Negative MDMA (Ecstasy) Screen Negative Benzodiazepines Screen Negative Cocaine Screen Negative U Marijuana (THC) Screen Negative COVID-19 (CARLENE) Active Medications Generic Name Dose Route Start Last Admin Trade Name Freq PRN Reason Stop Dose Admin Chlorhexidine Gluconate 1 applic 08/18/19 22:00 08/19/19 21:15 Hibiclens For Decolonization - TP 1 applic HS NU Administration Desmopressin Acetate 2 mcg 08/19/19 12:15 08/19/19 17:49 Ddavp Injection - SQ 2 mcg Q6H NU Administration Heparin Sodium (Porcine) 5,000 unit 08/19/19 06:00 08/19/19 21:28 Heparin - SQ 5,000 unit TID NU Administration Metronidazole 500 mg in 100 mls @ 100 mls/hr 08/18/19 15:30 08/19/19 17:49 Flagyl 500mg Premixed Ivpb - IVPB 100 mls/hr Q8H-IV NU Administration Dextrose 1,000 mls @ 150 mls/hr 08/19/19 18:58 08/19/19 19:47 D5w - IV 150 mls/hr ASDIR NU Administration Mupirocin 1 applic 08/18/19 22:00 08/19/19 21:15 Bactroban Ointment (For Decolonization) - NS 08/23/19 21:59 1 applic BID NU Administration Pantoprazole Sodium 40 mg 08/19/19 16:00 08/19/19 16:51 Protonix Iv IVPUSH 40 mg DAILY NU Administration Thiamine HCl 200 mg 08/19/19 03:30 08/19/19 19:49 Vitamin B1 Injection - IVPB 08/21/19 03:29 200 mg Q8H NU Administration ASSESSMENT/PLAN: Pt is a 48 y/o male with DM, HTN, tobacco use disorder, diverticulitis, cirrhosis (hx ETOH use disorder, has not drank in 1 year), and asthma who presents with AMS, brought in by his . He was recently hospitalized (07/29-08/04) for similar symptoms with no definitive diagnosis and came in with a fractured L foot for which he was scheduled to undergo surgery on Wednesday per his . Physical exam was notable for AMS, CT scan was concerning for colitis, and BMP indicated an KERLINE. He is currently evaluated and/or treated for AMS, acute vs. chronic colitis, shock, and electrolyte dysregulation. #neuro A&Ox1, lethargic - CT in July showed chronic right basal ganglia infarct, otherwise unremarkable - ?hx ETOH use, consider Wernicke's - continue IV thiamine 200mg Q8H for 2-7 days - urine tox screen was negative - BUN 98 on admission now down to 58.6 #cardio shock - pt initially hypotensive, responded to fluids and pressors - gradually decreased levo and now off pressor - continuing fluid resuscitation (see below) #pulm - CT chest shows b/l groundglass opacities but are not consistent with COVID pattern - COVID not detectable - COVID test x2 negative in the last 3 weeks - keep SpO2 >88 - on 2L nasal canula satting 98% #renal -KERLINE -Cr on records from last month WNL -Cr 6.1 at presentation down to 1.7, initial labs hemolyzed -d/c sodium bicarb in D5W for IV fluids -renal following #ID r/o septic shock - d/c'd cefepime and flagyl - started metronidazole - COVID non-detectable for this and previous hospital visits - Blood culture shows no growth to date - UA negative - Urine cx pending - ID is on board #GI - CT abd shows transverse and ascending chronic vs acute colitis - started metronidazole - c/o abdominal/chest pain/burning during this admission and noted at [place] - switched from famotidine to pantoprazole #PPX - DVT: heparin - GI: pantoprazole #FEN - d/c'd sodium bicarb in D5W @125mL/hr - started D5W with initial rate 75cc/h then increased to 150cc/h - started free water with initial rate 60cc/h then increased to 100cc/h - K decreased to 2.8 - started repleting and monitoring with BMP q4h - Na increased from 121 yesterday at 8am to 138 - started desmopressin and monitoring with BMP q4h - NPO Dispo: continue monitoring in the ICU Greg Jain #: [phone] FULL CODE Visit type - Emergency Visit Emergency Visit: Yes ED Registration Date: 08/18/19 Care time: The patient presented to the Emergency Department on the above date and was hospitalized for further evaluation of their emergent condition. - New Patient This patient is new to me today: No - Critical Care Critical Care patient: Yes Total Critical Care Time (in minutes): 36 Critical Care Statement: The care of this patient involved high complexity decision making to prevent further life threatening deterioration of the patient's condition and/or to evaluate & treat vital organ system(s) failure or risk of failure. ATTENDING PHYSICIAN STATEMENT I saw and evaluated the patient. I reviewed the resident's note and discussed the case with the resident. I agree with the resident's findings and plan as documented. SUBJECTIVE: OBJECTIVE: ASSESSMENT AND PLAN:
[2019-08-20] MEDS ORDERED: PT OWN MED DRAWER 7, Y5N ONE (00:17)
[2019-08-20] MEDS: DESMOPRESSIN ACETATE 4 MCG/ML AMP SQ SCH ×2 (00:53→06:22)
[2019-08-20 01:04] LABS: CALCIUM 7.3 mg/dL (8.5-10.1); CREATININE 1.6 mg/dL (0.55-1.3); POTASSIUM 3.4 mmol/L (3.5-5.1)
[2019-08-20] MEDS: KCL 10 MEQ IVPB 10 MEQ/100 ML INFUS.BAG IVPB SCH ×8 (01:12→23:34)
[2019-08-20] MEDS ORDERED: DEXTROSE 5%-WATER - 1,000 ML IV SCH (01:33)
[2019-08-20] MEDS: THIAMINE HCL 200 MG/2 ML VIAL IVPB SCH ×3 (02:44→20:00)
[2019-08-20 05:00] LABS: BASO % 0.5 % (0-2.0); EOS % 2.4 % (0-4.5); HEMATOCRIT 32.7 % (35.4-49); HEMOGLOBIN 11.3 GM/dL (11.7-16.9); LYMPH % 21.5 % (8-40); MCH 30.2 pg (25.7-33.7); MCHC 34.6 g/dl (32.0-35.9); MEAN CELL VOLUME 87.3 fl (80-96); MEAN PLT VOLUME 7.7 fl (7.5-11.1); MONO % 8.1 % (3.8-10.2); NEUT % 67.5 % (42.8-82.8); PLATELET COUNT 327 K/MM3 (134-434); RBC 3.75 M/mm3 (4.00-5.60); RDW 16.2 % (11.9-15.9); WHITE BLOOD COUNT 9.2 K/mm3 (4.0-10.0)
[2019-08-20 05:20] LABS: BLOOD UREA NITROGEN 51.8 mg/dL (7-18); CALCIUM 7.5 mg/dL (8.5-10.1); CREATININE 1.4 mg/dL (0.55-1.3); MAGNESIUM 1.7 mg/dL (1.8-2.4); PHOSPHOROUS 2.7 mg/dL (2.5-4.9); POTASSIUM 3.2 mmol/L (3.5-5.1)
[2019-08-20] MEDS: HEPARIN NA (PORCINE) 5,000 UNITS/ML 1ML VIAL SQ SCH ×3 (06:21→22:15)
[2019-08-20] MEDS ORDERED: MAGNESIUM SULF 50% (8.12 MEQ/2 ML-1 GM VIAL) IVPB ONE (09:00)
[2019-08-20] MEDS ORDERED: LORazepam 2 MG/ML SDV VIAL IVPUSH ONE (09:15)
[2019-08-20] MEDS ORDERED: LORazepam 2 MG/ML SDV VIAL ONE (09:16)
[2019-08-20] MEDS: MUPIROCIN 2% TOPICAL OINTMENT FOR DECOLONIZATION NS SCH ×2 (10:26→22:09)
[2019-08-20] MEDS: PANTOPRAZOLE SODIUM 40 MG VIAL IVPUSH SCH (10:26)
--- NOTE | 2019-08-20 10:41 | PN ---
Progress Note (short form) - Note Progress Note: RENAL awake and alert responds Last Vital Signs Temp Pulse Resp BP Pulse Ox 99.1 F 101 H 22 H 161/97 99 08/20/19 06:00 08/20/19 06:00 08/20/19 06:00 08/20/19 06:00 08/19/19 21:00 lungs clear cvs s1s2 rr +rupali abd soft, bs, +luq tenderness ext no edema neuro awake CBC, BMP 08/20/19 04:00 08/20/19 04:00 Current Medications Generic Name Dose Route Start Last Admin Trade Name Freq PRN Reason Stop Dose Admin Chlorhexidine Gluconate 1 applic 08/18/19 22:00 08/19/19 21:15 Hibiclens For Decolonization - TP 1 applic HS NU Administration Desmopressin Acetate 2 mcg 08/19/19 12:15 08/20/19 06:22 Ddavp Injection - SQ 2 mcg Q6H NU Administration Heparin Sodium (Porcine) 5,000 unit 08/19/19 06:00 08/20/19 06:21 Heparin - SQ 5,000 unit TID NU Administration Metronidazole 500 mg in 100 mls @ 100 mls/hr 08/18/19 15:30 08/20/19 10:25 Flagyl 500mg Premixed Ivpb - IVPB 100 mls/hr Q8H-IV NU Administration Dextrose 1,000 mls @ 200 mls/hr 08/20/19 01:33 08/20/19 02:00 D5w - IV 200 mls/hr ASDIR NU Administration Mupirocin 1 applic 08/18/19 22:00 08/20/19 10:26 Bactroban Ointment (For Decolonization) - NS 08/23/19 21:59 1 applic BID NU Administration Pantoprazole Sodium 40 mg 08/19/19 16:00 08/20/19 10:26 Protonix Iv IVPUSH 40 mg DAILY NU Administration Thiamine HCl 200 mg 08/19/19 03:30 08/20/19 02:44 Vitamin B1 Injection - IVPB 08/21/19 03:29 200 mg Q8H NU Administration Impression 1. KERLINE improved 2. hyperkalemia 3. shock 4. altered mental status 5. hypotension 6. r/o covid 7. lymphadenopathy on ct scan 8. sepsis 9. hx diverticulitis 10. asthma 11. liver cirrhosis 12. met acidosis- pt had an aniongap acidosis which has resolved- likely from uremia 13 hyponatremia resolved and stable Plan his sodium stabilized, can stop desmopressin has had a reduced urine output now perhaps from desmopressin. should improve replace k MV
--- NOTE | 2019-08-20 11:16 | PN ---
Teaching Attending Note Name of Resident: Toshia Monique ATTENDING PHYSICIAN STATEMENT I saw and evaluated the patient. I reviewed the resident's note and discussed the case with the resident. I agree with the resident's findings and plan as documented. SUBJECTIVE: Pt seen and examined in the ICU. Mental status much improved. Urine output and renal function improving. OBJECTIVE: Vital Signs Period Temp Pulse Resp BP Sys/Lopez Pulse Ox Last 24 Hr 98.4 F-99.7 F 100-119 14-24 129-172/81-104 99 Intake & Output 08/17/19 08/18/19 08/19/19 08/20/19 23:59 23:59 23:59 23:59 Intake Total 6857.5 3271.5 1850 Output Total 2475 6650 100 Balance 4382.5 -3378.5 1750 Weight 77.111 kg 95.844 kg 95.708 kg Gen: more alert, awake Heart: RRR Lung: decreased breath sounds at the bases Abd: soft, some TTP LUQ Ext: no edema CBC, BMP 08/20/19 04:00 08/20/19 04:00 Active Medications Chlorhexidine Gluconate (Hibiclens For Decolonization -) 1 applic TP HS [facility] Last Admin: 08/19/19 21:15 Dose: 1 applic Documented by: Heparin Sodium (Porcine) (Heparin -) 5,000 unit SQ TID [facility] Last Admin: 08/20/19 06:21 Dose: 5,000 unit Documented by: Metronidazole (Flagyl 500mg Premixed Ivpb -) 500 mg in 100 mls @ 100 mls/hr IVPB Q8H-IV [facility] Last Admin: 08/20/19 10:25 Dose: 100 mls/hr Documented by: Dextrose (D5w -) 1,000 mls @ 100 mls/hr IV ASDIR NU Mupirocin (Bactroban Ointment (For Decolonization) -) 1 applic NS BID [facility] Stop: 08/23/19 21:59 Last Admin: 08/20/19 10:26 Dose: 1 applic Documented by: Pantoprazole Sodium (Protonix Iv) 40 mg IVPUSH DAILY [facility] Last Admin: 08/20/19 10:26 Dose: 40 mg Documented by: Thiamine HCl (Vitamin B1 Injection -) 200 mg IVPB Q8H [facility] Stop: 08/21/19 03:29 Last Admin: 08/20/19 02:44 Dose: 200 mg Documented by: ASSESSMENT AND PLAN: Metabolic Encephalopathy Acute Kidney Injury Hyperkalemia Hyponatremia Acute Colitis h/o Diverticulitis Septic Shock resolving CAD Liver Cirrhosis Asthma HTN DM - continue antibiotics - f/u cultures - d/c desmopressin - monitor urine output, creatinine - off pressors, maintain MAP >65 - aspiration precautions - DVT prophylaxis - can monitor on floor
--- NOTE | 2019-08-20 11:39 | PN ---
Progress Note (short form) - Note Progress Note: Neurology HISTORY OF PRESENT ILLNESS: Pt is a 48 y/o male with DM, HTN, tobacco use disorder, diverticulitis, cirrhosis (hx ETOH use disorder, has not drank in 1 year), and asthma who presents with AMS, brought in by his on day admission. Medical records indicate, pt reported returning from [place] in June, and pt self-quaranted. denies any recent travel or known covid contacts on day of admission. He was previously seen at [facility] in mid July (07/29-08/03) for lethargy, chest pain, and possible viral pneumonitis. Pt had elevated d-dimer and ground glass opacities on CT which was concerning for COVID but pt was negative x2. Pt was briefly intubated during admission and requiring heavy sedation. CT head showed chronic basal infarct. LP was negative. EKG and troponins were unremarkable. He was treated empirically with ceftriaxone and acyclovir. He was discharged with doxycycline. Per , the pt has not fully recovered after discharge. He is still weak and recently fell down the stairs and broke his left foot. Timing is unclear. He is scheduled to have surgery next week at [facility]. She also reports he was given amlodipine at discharge and was hypotensive, so she took the pill bottle away from him several days ago. She saw today that he had the pill bottle again. She is unsure if he took any. She also reports decreased PO intake in the last week. On day of admission, presented in the ED he complained of sudden onset burning substernal/epigastric pain. He remains lethargic and has difficulty answering questions. Repeat CT head without acute changes. Brain MRI completed, mild volume loss without acute pathology. Remains in ICU under critical care monitoring, getting continued treatment for KERLINE and underlying toxic metabolic encephalopathy. Active Medications Chlorhexidine Gluconate (Hibiclens For Decolonization -) 1 applic TP HS NU Last Admin: 08/19/19 21:15 Dose: 1 applic Documented by: Heparin Sodium (Porcine) (Heparin -) 5,000 unit SQ TID NU Last Admin: 08/20/19 06:21 Dose: 5,000 unit Documented by: Metronidazole (Flagyl 500mg Premixed Ivpb -) 500 mg in 100 mls @ 100 mls/hr IVPB Q8H-IV NU Last Admin: 08/20/19 10:25 Dose: 100 mls/hr Documented by: Dextrose (D5w -) 1,000 mls @ 100 mls/hr IV ASDIR [facility] Mupirocin (Bactroban Ointment (For Decolonization) -) 1 applic NS BID [facility] Stop: 08/23/19 21:59 Last Admin: 08/20/19 10:26 Dose: 1 applic Documented by: Pantoprazole Sodium (Protonix Iv) 40 mg IVPUSH DAILY [facility] Last Admin: 08/20/19 10:26 Dose: 40 mg Documented by: Thiamine HCl (Vitamin B1 Injection -) 200 mg IVPB Q8H [facility] Stop: 08/21/19 03:29 Last Admin: 08/20/19 02:44 Dose: 200 mg Documented by: PHYSICAL EXAMINATION Vital Signs Period Temp Pulse Resp BP Sys/Lopez Pulse Ox Last 24 Hr 98.4 F-99.7 F 100-119 14-24 129-172/81-104 99 GENERAL: Lethargic, oriented x1 HEAD: Normal with no signs of trauma. EYES: Pupils equal, round and reactive to light, extraocular movements intact, conjunctiva clear. EARS, NOSE, THROAT: Ears normal, nares patent, moist mucous membranes. NECK: Normal range of motion, no JVD. LUNGS: Clear to auscultation anteriorly. On NC. HEART: Regular rate and rhythm, no murmur appreciated. Chest non-tender to palpation. ABDOMEN: Soft, nontender, not distended, normoactive bowel sounds, no ecchymosis. UPPER EXTREMITIES: Warm, well-perfused. No peripheral edema. LOWER EXTREMITIES: Warm, well-perfused. No calf tenderness. No peripheral edema. NEUROLOGICAL: Cranial nerves II-XII intact. Moving Extremity's grossly, squeezing hand at command, open the eyes on command, sensory intact to light touch PSYCHIATRIC: Cooperative. Good eye contact. Appropriate mood and affect. SKIN: Warm, dry, normal turgor, no rashes or lesions noted. CBCD WBC 9.2 K/mm3 (4.0-10.0) 08/20/19 04:00 RBC 3.75 M/mm3 (4.00-5.60) L 08/20/19 04:00 Hgb 11.3 GM/dL (11.7-16.9) L 08/20/19 04:00 Hct 32.7 % (35.4-49) L 08/20/19 04:00 MCV 87.3 fl (80-96) 08/20/19 04:00 MCHC 34.6 g/dl (32.0-35.9) 08/20/19 04:00 RDW 16.2 % (11.9-15.9) H 08/20/19 04:00 Plt Count 327 K/MM3 (134-434) 08/20/19 04:00 MPV 7.7 fl (7.5-11.1) D 08/20/19 04:00 CMP Sodium 136 mmol/L (136-145) 08/20/19 04:00 Potassium 3.2 mmol/L (3.5-5.1) L 08/20/19 04:00 Chloride 106 mmol/L (98-107) 08/20/19 04:00 Carbon Dioxide 19 mmol/L (21-32) L 08/20/19 04:00 Anion Gap 12 MMOL/L (8-16) 08/20/19 04:00 BUN 51.8 mg/dL (7-18) H 08/20/19 04:00 Creatinine 1.4 mg/dL (0.55-1.3) H 08/20/19 04:00 Random Glucose 167 mg/dL (74-106) H 08/20/19 04:00 Calcium 7.5 mg/dL (8.5-10.1) L 08/20/19 04:00 Total Bilirubin 0.3 mg/dL (0.2-1) 08/19/19 05:50 AST 32 U/L (15-37) 08/19/19 05:50 ALT 21 U/L (13-61) 08/19/19 05:50 Alkaline Phosphatase 109 U/L (45-117) 08/19/19 05:50 Total Protein 6.3 g/dl (6.4-8.2) L 08/19/19 05:50 Albumin 2.8 g/dl (3.4-5.0) L 08/19/19 05:50 CARDIAC ENZYMES Creatine Kinase 735 U/L (26-308) H 08/18/19 11:00 Troponin I < 0.02 ng/ml (0.00-0.05) 08/18/19 12:15 ASSESSMENT/PLAN: Pt is a 48 y/o male with DM, HTN, tobacco use disorder, diverticulitis, cirrhosis (hx ETOH use disorder, has not drank in 1 year), and asthma who presents with AMS, brought in by his . He was recently hospitalized (07/29- 08/04) for similar symptoms with no definitive diagnosis. Medical records indicate, pt reported returning from [place] in June, and pt self-quaranted. denies any recent travel or known covid contacts on day of admission. He was previously seen at [facility] in mid July (07/29-08/03) for lethargy, chest pain, and possible viral pneumonitis. Pt had elevated d-dimer and ground glass opacities on CT which was concerning for COVID but pt was negative x2. Pt was briefly intubated during admission and requiring heavy sedation. CT head showed chronic basal infarct. LP was negative. EKG and troponins were unremarkable. He was treated empirically with ceftriaxone and acyclovir. He was discharged with doxycycline. Per , the pt has not fully recovered after discharge. He is still weak and recently fell down the stairs and broke his left foot. Timing is unclear. He is scheduled to have surgery next week at [facility]. She also reports he was given amlodipine at discharge and was hypotensive, so she took the pill bottle away from him several days ago. She saw today that he had the pill bottle again. She is unsure if he took any. She also reported decreased PO intake in the last week. On day of admission, presented in the ED he complained of sudden onset burning substernal/epigastric chest pain. He remains lethargic and has difficulty answering questions. Repeat CT head without acute changes. Brain MRI completed, mild volume loss without acute pathology. Remains in ICU under critical care monitoring, getting continued treatment for KERLINE and underlying toxic metabolic encephalopathy. Maintain adequate hydration, monitor blood pressure, maintain normotensive range. Continued close monitoring in ICU, critcal care time 35 mins.
[2019-08-20] MEDS: DEXTROSE 5%-WATER - 1,000 ML IV SCH (12:00)
[2019-08-20 12:22] LABS: ALBUMIN 2.8 g/dl (3.4-5.0); BILIRUBIN,TOTAL 0.7 mg/dL (0.2-1); BLOOD UREA NITROGEN 43.9 mg/dL (7-18); CALCIUM 8.2 mg/dL (8.5-10.1); CREATININE 1.1 mg/dL (0.55-1.3); POTASSIUM 3.3 mmol/L (3.5-5.1); TOT PROT 6.2 g/dl (6.4-8.2)
--- NOTE | 2019-08-20 14:17 | EKG ---
Test Reason : Blood Pressure : / mmHG Vent. Rate : 068 BPM Atrial Rate : 068 BPM P-R Int : 206 ms QRS Dur : 106 ms QT Int : 448 ms P-R-T Axes : -02 035 021 degrees QTc Int : 476 ms NORMAL SINUS RHYTHM NORMAL ECG WHEN COMPARED WITH ECG OF 30-JAN-2017 17:22, VENT. RATE HAS DECREASED BY 34 BPM Confirmed by MARY GRACE ORTEGA MD ([id number]) on 08/20/2019 2:17:20 PM Referred By: Confirmed By:MARY GRACE ORTEGA MD
--- NOTE | 2019-08-20 14:17 | EKG ---
Test Reason : Blood Pressure : / mmHG Vent. Rate : 101 BPM Atrial Rate : 101 BPM P-R Int : 174 ms QRS Dur : 096 ms QT Int : 364 ms P-R-T Axes : 058 054 060 degrees QTc Int : 471 ms SINUS TACHYCARDIA NONSPECIFIC ST ABNORMALITY ABNORMAL ECG WHEN COMPARED WITH ECG OF 18-AUG-2019 10:29, VENT. RATE HAS INCREASED BY [address] VARIATION Confirmed by MARY GRACE ORTEGA MD ([id number]) on 08/20/2019 2:16:36 PM Referred By: Confirmed By:MARY GRACE ORTEGA MD
--- NOTE | 2019-08-20 14:37 | PN ---
Physical Exam: SUBJECTIVE: Patient seen and examined This morning patient is alert and oriented to person, place, and time. Overnight his potassium was repleted. Overnight he also received Desmopressin, because his sodium was corrected too quickly (Na went from 121 - 137) OBJECTIVE: Vital Signs Period Temp Pulse Resp BP Sys/Lopez Pulse Ox Last 24 Hr 98.4 F-99.7 F 100-119 15-24 132-172/84-104 99-100 GENERAL: The patient is awake, alert, and fully oriented, in no acute distress. HEAD: Normal with no signs of trauma. EYES: Extraocular movements intact, conjunctiva clear ENT: Ears normal, nares patent. LUNGS: Breath sounds equal, clear to auscultation bilaterally, no wheezes, no crackles, no use of accessory muscles. HEART: Regular rate and rhythm, S1, S2 without murmur, rub or gallop. ABDOMEN: Soft, nontender, nondistended, normoactive bowel sounds, no guarding, no rebound, no hepatosplenomegaly, no masses. EXTREMITIES: 2+ pulses, warm, well-perfused, no edema. Soft cast in place on left foot and ankle. SKIN: Warm, dry, normal turgor, no rashes or lesions noted Laboratory Results - last 24 hr CBC, BMP 08/20/19 04:00 08/20/19 11:25 Active Medications Generic Name Dose Route Start Last Admin Trade Name Kaiq PRN Reason Stop Dose Admin Chlorhexidine Gluconate 1 applic 08/18/19 22:00 08/19/19 21:15 Hibiclens For Decolonization - TP 1 applic HS NU Administration Heparin Sodium (Porcine) 5,000 unit 08/19/19 06:00 08/20/19 06:21 Heparin - SQ 5,000 unit TID NU Administration Metronidazole 500 mg in 100 mls @ 100 mls/hr 08/18/19 15:30 08/20/19 10:25 Flagyl 500mg Premixed Ivpb - IVPB 100 mls/hr Q8H-IV NU Administration Dextrose 1,000 mls @ 100 mls/hr 08/20/19 11:11 D5w - IV ASDIR NU Mupirocin 1 applic 08/18/19 22:00 08/20/19 10:26 Bactroban Ointment (For Decolonization) - NS 08/23/19 21:59 1 applic BID NU Administration Pantoprazole Sodium 40 mg 08/19/19 16:00 08/20/19 10:26 Protonix Iv IVPUSH 40 mg DAILY NU Administration Thiamine HCl 200 mg 08/19/19 03:30 08/20/19 02:44 Vitamin B1 Injection - IVPB 08/21/19 03:29 200 mg Q8H NU Administration ASSESSMENT/PLAN: The patient is a 48 year old man with PMH of diabetes, hypertension, cirrhosis (hx of alcohol use), and diverticulitis, who presents with AMS, electrolyte dysregulation, a CT scan concerning for colitis, and an KERLINE. Neuro - Altered mental status on admission likely due to uremic encephalopathy, as MRI on 08-19 reveals no intracranial pathology - BUN trending down (today BUN 51, down from 98 on admission) - Mental status is improving, continue to monitor - Try to avoid benzo's, as he had an negative response after a dose today Cardiovascular - Admitted with shock, requiring fluid and Levo. No longer requiring levo. - Maintaining MAPs above 65 - Restarted metropolol 25 today, if he continues to be hypertensive, consider starting hydrochlorothiazide tomorrow Pulmonary - Currently stable - Received pneumococcal vaccine during this stay - Use supplemental O2 as needed to maintain saturation above 88 GI - CT was concerning for colitis - Continue Metronidazole; discussed with ID, will consider stopping metronidazole - Blood cultures and urine culture are negative Renal/Electrolytes - The patients potassium is being repleted; check K tonight - Received multiple runs of potassium today, monitor closely - Sodium is stable, held Desmopressin today, fluids have been decreased to 100 Ortho - Patient fell down the stairs on 08-14 and has a broken L foot - He is scheduled for surgery on Wednesday with Dr. Rodriguez at [facility] - Please follow up with surgery as appropriate Dispo: Patient can be monitored on the floor - Visit type - Emergency Visit Emergency Visit: No - New Patient This patient is new to me today: Yes Date on this admission: 08/20/19 - Critical Care Critical Care patient: Yes Total Critical Care Time (in minutes): 40 Critical Care Statement: The care of this patient involved high complexity decision making to prevent further life threatening deterioration of the patient 's condition and/or to evaluate & treat vital organ system(s) failure or risk of failure. ATTENDING PHYSICIAN STATEMENT I saw and evaluated the patient. I reviewed the resident's note and discussed the case with the resident. I agree with the resident's findings and plan as documented. SUBJECTIVE: OBJECTIVE: ASSESSMENT AND PLAN:
[2019-08-20 15:21] VITALS: BMI 31.1
[2019-08-20] MEDS ORDERED: FUROSEMIDE 40 MG/4 ML INJECTABLE VIAL IVPUSH ONE (18:29)
--- NOTE | 2019-08-20 19:36 | PN ---
Progress Note, Physician History of Present Illness: MORE AWAKE AND RESPONSIVE OFFERS NO COMPLAINTS AFEBRILE WBC WNL CULTURES NEGATIVE - Current Medication List Current Medications: Active Medications Chlorhexidine Gluconate (Hibiclens For Decolonization -) 1 applic TP HS [facility] Last Admin: 08/19/19 21:15 Dose: 1 applic Documented by: Heparin Sodium (Porcine) (Heparin -) 5,000 unit SQ TID [facility] Last Admin: 08/20/19 14:50 Dose: 5,000 unit Documented by: Metronidazole (Flagyl 500mg Premixed Ivpb -) 500 mg in 100 mls @ 100 mls/hr IVPB Q8H-IV [facility] Last Admin: 08/20/19 17:55 Dose: 100 mls/hr Documented by: Dextrose (D5w -) 1,000 mls @ 100 mls/hr IV ASDIR [facility] Last Admin: 08/20/19 12:00 Dose: 100 mls/hr Documented by: Potassium Chloride (Potassium Chloride 10 Meq Premix Ivpb -) 10 meq in 100 mls @ 100 mls/hr IVPB Q60M [facility] Stop: 08/20/19 19:44 Last Admin: 08/20/19 18:34 Dose: 100 mls/hr Documented by: Metoprolol Succinate (Toprol Xl -) 25 mg PO DAILY [facility] Mupirocin (Bactroban Ointment (For Decolonization) -) 1 applic NS BID [facility] Stop: 08/23/19 21:59 Last Admin: 08/20/19 10:26 Dose: 1 applic Documented by: Pantoprazole Sodium (Protonix Iv) 40 mg IVPUSH DAILY [facility] Last Admin: 08/20/19 10:26 Dose: 40 mg Documented by: Thiamine HCl (Vitamin B1 Injection -) 200 mg IVPB Q8H [facility] Stop: 08/21/19 03:29 Last Admin: 08/20/19 13:00 Dose: 200 mg Documented by: - Objective Vital Signs: Vital Signs Temperature 98.7 F 08/20/19 14:00 Pulse Rate 109 H 08/20/19 14:00 Respiratory Rate 20 08/20/19 14:00 Blood Pressure 158/104 H 08/20/19 14:00 O2 Sat by Pulse Oximetry (%) 100 08/20/19 09:00 Constitutional: Yes: No Distress Cardiovascular: Yes: Regular Rate and Rhythm, S1, S2 Respiratory: Yes: CTA Bilaterally Gastrointestinal: Yes: Normal Bowel Sounds, Soft, Other (ABDOMEN NON TENDER) Extremities: Yes: Other (SPLINT IN PLACE L LE) Labs: CBC, BMP 08/20/19 04:00 08/20/19 11:25 INR, PTT INR 1.18 (0.83-1.09) H 08/18/19 11:00 Assessment/Plan NO CLEAR INFECTIOUS FOCUS OBSERVE OFF ANTIBIOTICS
--- NOTE | 2019-08-20 21:39 | PN ---
Progress Note (short form) - Note Progress Note: Pt complaining of pain. Requesting Oxycodone and Ambien. Reviewed [place] [employer] (results below). Ordered dose of Oxycodone. [place] [employer] Search Reference # [id number] Patient Name: Rishabh Love Date: 1970 Address: [place], [place] [address]Pkb: Male Rx Written Rx Dispensed Drug Quantity Days Supply Prescriber Name Payment Method Dispenser 08/16/2019 08/16/2019 oxycodone-acetaminophen 7.5-325 mg tablet 30 10 Nico Rodriguez Insurance [facility] 03/30/2019 03/30/2019 oxycodone-acetaminophen 10-325 mg tablet 12 2 [facility] Insurance [facility] 02/04/2019 02/04/2019 oxycodone hcl 5 mg tablet 15 5 Anabella Us MD Insurance [facility] Alfredo Jj MD PGY3 ICU Service Resident
[2019-08-20] MEDS ORDERED: oxyCODONE HCL 5 MG TABLET PO ONE (21:45)
[2019-08-20] MEDS ORDERED: ACETAMINOPHEN 325 MG TABLET (FP) PO ONE (21:45)
[2019-08-20] MEDS: CHLORHEXIDINE GLUCONATE 4% CLEANSER FOR DECOLONIZATION TP SCH (22:09)
[2019-08-20] MEDS ORDERED: POTASSIUM CHLORIDE TABS 20 MEQ TABLET.ER (FP) PO ONE (22:28)
[2019-08-21] MEDS: KCL 10 MEQ IVPB 10 MEQ/100 ML INFUS.BAG IVPB SCH ×5 (01:07→12:32)
[2019-08-21] MEDS ORDERED: MELATONIN 5 MG TABLETS PO ONE (04:17)
[2019-08-21] MEDS: HEPARIN NA (PORCINE) 5,000 UNITS/ML 1ML VIAL SQ SCH ×3 (06:02→21:15)
[2019-08-21 07:24] LABS: BASO % 0.6 % (0-2.0); EOS % 3.9 % (0-4.5); HEMATOCRIT 31.5 % (35.4-49); HEMOGLOBIN 10.8 GM/dL (11.7-16.9); LYMPH % 24.9 % (8-40); MCH 30.2 pg (25.7-33.7); MCHC 34.3 g/dl (32.0-35.9); MEAN PLT VOLUME 7.7 fl (7.5-11.1); MONO % 9.2 % (3.8-10.2); NEUT % 61.4 % (42.8-82.8); PLATELET COUNT 267 K/MM3 (134-434); RBC 3.58 M/mm3 (4.00-5.60); RDW 15.7 % (11.9-15.9); WHITE BLOOD COUNT 7.5 K/mm3 (4.0-10.0)
[2019-08-21 07:50] LABS: ALBUMIN 2.6 g/dl (3.4-5.0); BILIRUBIN,TOTAL 1.1 mg/dL (0.2-1); BLOOD UREA NITROGEN 29.3 mg/dL (7-18); CALCIUM 8.7 mg/dL (8.5-10.1); CREATININE 0.8 mg/dL (0.55-1.3); MAGNESIUM 1.6 mg/dL (1.8-2.4); PHOSPHOROUS 2.2 mg/dL (2.5-4.9); POTASSIUM 3.3 mmol/L (3.5-5.1); TOT PROT 5.8 g/dl (6.4-8.2)
[2019-08-21] MEDS ORDERED: NAPH,MB-DB/K PH,MBDB POWDER PACKET PO ONE (08:30)
[2019-08-21] MEDS ORDERED: MAGNESIUM SULF 50% (8.12 MEQ/2 ML-1 GM VIAL) IVPB ONE (09:00)
--- NOTE | 2019-08-21 09:05 | PN ---
Progress Note (short form) - Note Progress Note: Neurology HISTORY OF PRESENT ILLNESS: Pt is a 48 y/o male with DM, HTN, tobacco use disorder, diverticulitis, cirrhosis (hx ETOH use disorder, has not drank in 1 year), and asthma who presents with AMS, brought in by his on day admission. Medical records indicate, pt reported returning from [place] in June, and pt self-quaranted. denies any recent travel or known covid contacts on day of admission. He was previously seen at [facility] in mid July (07/29-08/03) for lethargy, chest pain, and possible viral pneumonitis. Pt had elevated d-dimer and ground glass opacities on CT which was concerning for COVID but pt was negative x2. Pt was briefly intubated during admission and requiring heavy sedation. CT head showed chronic basal infarct. LP was negative. EKG and troponins were unremarkable. He was treated empirically with ceftriaxone and acyclovir. He was discharged with doxycycline. Per , the pt has not fully recovered after discharge. He is still weak and recently fell down the stairs and broke his left foot. Timing is unclear. He is scheduled to have surgery next week at [facility]. She also reports he was given amlodipine at discharge and was hypotensive, so she took the pill bottle away from him several days ago. She saw today that he had the pill bottle again. She is unsure if he took any. She also reports decreased PO intake in the last week. On day of admission, presented in the ED he complained of sudden onset burning substernal/epigastric pain. He remains lethargic and has difficulty answering questions. Repeat CT head without acute changes. Brain MRI completed, mild volume loss without acute pathology. Remains in ICU under critical care monitoring, getting continued treatment for KERLINE and underlying toxic metabolic encephalopathy. Much improved overnight, is conversiv e with me this morning and was able to tell me name of the hospital as well as month and year, slight hesitation his speech but otherwise significantly better and now awake alert and oriented. Discussed with the ICU nurse in detail. Active Medications Chlorhexidine Gluconate (Hibiclens For Decolonization -) 1 applic TP HS [facility] Last Admin: 08/20/19 22:09 Dose: 1 applic Documented by: Heparin Sodium (Porcine) (Heparin -) 5,000 unit SQ TID [facility] Last Admin: 08/21/19 06:02 Dose: 5,000 unit Documented by: Dextrose (D5w -) 1,000 mls @ 100 mls/hr IV ASDIR [facility] Last Admin: 08/20/19 12:00 Dose: 100 mls/hr Documented by: Potassium Chloride (Potassium Chloride 10 Meq Premix Ivpb -) 10 meq in 100 mls @ 100 mls/hr IVPB Q60M [facility] Stop: 08/21/19 11:59 Last Admin: 08/21/19 08:49 Dose: 100 mls/hr Documented by: Metoprolol Succinate (Toprol Xl -) 25 mg PO DAILY [facility] Mupirocin (Bactroban Ointment (For Decolonization) -) 1 applic NS BID [facility] Stop: 08/23/19 21:59 Last Admin: 08/20/19 22:09 Dose: 1 applic Documented by: Pantoprazole Sodium (Protonix Iv) 40 mg IVPUSH DAILY [facility] Last Admin: 08/20/19 10:26 Dose: 40 mg Documented by: PHYSICAL EXAMINATION Vital Signs Period Temp Pulse Resp BP Sys/Lopez Pulse Ox Last 24 Hr 98.4 F-98.7 F 84-109 13-21 129-168/85-104 100 GENERAL: Lethargic, oriented x1 HEAD: Normal with no signs of trauma. EYES: Pupils equal, round and reactive to light, extraocular movements intact, conjunctiva clear. EARS, NOSE, THROAT: Ears normal, nares patent, moist mucous membranes. NECK: Normal range of motion, no JVD. LUNGS: Clear to auscultation anteriorly. On NC. HEART: Regular rate and rhythm, no murmur appreciated. Chest non-tender to palpation. ABDOMEN: Soft, nontender, not distended, normoactive bowel sounds, no ecchymosis. UPPER EXTREMITIES: Warm, well-perfused. No peripheral edema. LOWER EXTREMITIES: Warm, well-perfused. No calf tenderness. No peripheral edema. NEUROLOGICAL: Cranial nerves II-XII intact. awake, alert, moving all extremities equally, sensory intact PSYCHIATRIC: Cooperative. Good eye contact. Appropriate mood and affect. SKIN: Warm, dry, normal turgor, no rashes or lesions noted. CBCD WBC 7.5 K/mm3 (4.0-10.0) 08/21/19 05:58 RBC 3.58 M/mm3 (4.00-5.60) L 08/21/19 05:58 Hgb 10.8 GM/dL (11.7-16.9) L 08/21/19 05:58 Hct 31.5 % (35.4-49) L 08/21/19 05:58 MCV 88.0 fl (80-96) 08/21/19 05:58 MCHC 34.3 g/dl (32.0-35.9) 08/21/19 05:58 RDW 15.7 % (11.9-15.9) 08/21/19 05:58 Plt Count 267 K/MM3 (134-434) 08/21/19 05:58 MPV 7.7 fl (7.5-11.1) 08/21/19 05:58 CMP Sodium 136 mmol/L (136-145) 08/21/19 05:58 Potassium 3.3 mmol/L (3.5-5.1) L 08/21/19 05:58 Chloride 105 mmol/L (98-107) 08/21/19 05:58 Carbon Dioxide 20 mmol/L (21-32) L 08/21/19 05:58 Anion Gap 11 MMOL/L (8-16) 08/21/19 05:58 BUN 29.3 mg/dL (7-18) H 08/21/19 05:58 Creatinine 0.8 mg/dL (0.55-1.3) 08/21/19 05:58 Random Glucose 157 mg/dL (74-106) H 08/21/19 05:58 Calcium 8.7 mg/dL (8.5-10.1) 08/21/19 05:58 Total Bilirubin 1.1 mg/dL (0.2-1) H 08/21/19 05:58 AST 25 U/L (15-37) 08/21/19 05:58 ALT 24 U/L (13-61) 08/21/19 05:58 Alkaline Phosphatase 94 U/L (45-117) 08/21/19 05:58 Total Protein 5.8 g/dl (6.4-8.2) L 08/21/19 05:58 Albumin 2.6 g/dl (3.4-5.0) L 08/21/19 05:58 CARDIAC ENZYMES Creatine Kinase 735 U/L (26-308) H 08/18/19 11:00 Troponin I < 0.02 ng/ml (0.00-0.05) 08/18/19 12:15 ASSESSMENT/PLAN: Pt is a 48 y/o male with DM, HTN, tobacco use disorder, diverticulitis, cirrhosis (hx ETOH use disorder, has not drank in 1 year), and asthma who presents with AMS, brought in by his . He was recently hospitalized (07/29- 08/04) for similar symptoms with no definitive diagnosis. Medical records indicate, pt reported returning from [place] in June, and pt self-quaranted. denies any recent travel or known covid contacts on day of admission. He was previously seen at [facility] in mid July (07/29-08/03) for lethargy, chest pain, and possible viral pneumonitis. Pt had elevated d-dimer and ground glass opacities on CT which was concerning for COVID but pt was negative x2. Pt was briefly intubated during admission and requiring heavy sedation. CT head showed chronic basal infarct. LP was negative. EKG and troponins were unremarkable. He was treated empirically with ceftriaxone and acyclovir. He was discharged with doxycycline. Per , the pt has not fully recovered after discharge. He is still weak and recently fell down the stairs and broke his left foot. Timing is unclear. He is scheduled to have surgery next week at [facility]. She also reports he was given amlodipine at discharge and was hypotensive, so she took the pill bottle away from him several days ago. She saw today that he had the pill bottle again. She is unsure if he took any. She also reported decreased PO intake in the last week. On day of admission, presented in the ED he complained of sudden onset burning substernal/epigastric chest pain. He remains lethargic and has difficulty answering questions. Repeat CT head without acute changes. Brain MRI completed, mild volume loss without acute pathology. Much improved overnight, is conversive with me this morning and was able to tell me name of the hospital as well as month and year, slight hesitation his speech but otherwise significantly better and now awake alert and oriented. Continue medical optimization, Maintain adequate hydration, monitor blood pressure, maintain normotensive range. In ICU this AM, critcal care time 35 mins.
[2019-08-21] MEDS: PANTOPRAZOLE SODIUM 40 MG VIAL IVPUSH SCH (09:11)
[2019-08-21] MEDS: MUPIROCIN 2% TOPICAL OINTMENT FOR DECOLONIZATION NS SCH ×2 (09:11→22:35)
--- NOTE | 2019-08-21 09:48 | CONS ---
INFECTIOUS DISEASE CONSULTATION DATE OF CONSULTATION: DATE OF DICTATION: 08/20/2019 HISTORY: The patient is a 48-year-old male diabetic, history of chronic liver disease who is evaluated for possible sepsis. He was admitted to the hospital on August 18, 2019, with altered mental status. The patient was noted to be hypotensive and required admission to the intensive care unit. He was briefly on pressors. His course was notable for a low grade fever and white blood cell count of 13,000. A CAT scan of the head was performed and was negative for acute pathology. Chest x-ray showed no acute infiltrate. A CAT scan of the abdomen and pelvis was performed and showed possible colitis involving the transverse and ascending segments of the colon. He was empirically treated with cefepime and Flagyl. At the present time he is awake, however, lethargic. He is in no acute distress. His temperatures have improved. White blood cell count within normal limits. Cultures have been obtained and are negative. According to the notes, he had been hospitalized at [facility] in mid-July with a similar presentation. At that time he had presented with altered mental status and shortness of breath. He had apparently been intubated at that time. A sepsis workup was unrevealing. An MRI of the brain revealed an old stroke. LP was reportedly negative. COVID-19 PCR x2 was negative. He was empirically treated with ceftriaxone and acyclovir and was discharged home on doxycycline. At the present time he is awake, offers no focal complaint. PAST MEDICAL HISTORY: Positive for diabetes mellitus, asthma, hypertension, diverticulosis, chronic liver disease; history of recent ankle fracture, details are not available. ALLERGIES: No known allergies. MEDICATIONS: Include cefepime and metronidazole, Toprol, Lasix, Protonix. SOCIAL HISTORY: Resides in the community at home with significant other. No documented tobacco or alcohol use. SYSTEMS REVIEW: Neurologic: As per HPI. Cardiac: Negative chest pain or palpitations. Respiratory: Negative cough or sputum production. Gastrointestinal: Negative vomiting or diarrhea. Genitourinary: Negative for urinary tract infection. LABORATORY DATA: White count on admission 13.4, hematocrit 35.9, platelet count of 367. Creatinine 2.3. Cultures pending. Toxicology screen negative. Urine analysis negative. PHYSICAL EXAMINATION: General: He is awake. He is not acutely toxic appearing. Vital Signs: Temperature 99, blood pressure 142/86, pulse 111, respirations 18 per minute. HEENT: Sclerae are anicteric. Heart: Sounds S1, S2. Lungs: Clear. Abdomen: Obese, soft, nontender. Extremities: Negative for edema. IMPRESSION: 1. Altered mentation, unclear etiology. 2. Leukocytosis. 3. Azotemia. No clear infectious source at this time. Would observe off antibiotic therapy, await culture results. Thank you for the kind referral. GILBERTO SHIPLEY M.D. [id number]
[2019-08-21] MEDS ORDERED: metoPROLOL SUCCINATE 25 MG TAB.SR.24H (FP) PO SCH (10:00)
[2019-08-21] MEDS ORDERED: LOSARTAN 50MG/HCTZ 12.5MG 1 TAB (FP) PO SCH (11:30)
--- NOTE | 2019-08-21 12:02 | PN ---
Progress Note, Physician History of Present Illness: AWAKE AND RESPONSIVE IN BED OFFERS NO COMPLAINTS TOLERATING DIET AFEBRILE WBC WNL CULTURES NEGATIVE COVID-19 (-) - Current Medication List Current Medications: Active Medications Chlorhexidine Gluconate (Hibiclens For Decolonization -) 1 applic TP HS [facility] Last Admin: 08/20/19 22:09 Dose: 1 applic Documented by: Heparin Sodium (Porcine) (Heparin -) 5,000 unit SQ TID [facility] Last Admin: 08/21/19 06:02 Dose: 5,000 unit Documented by: Hydrochlorothiazide (Hctz -) 12.5 mg PO DAILY [facility] Dextrose (D5w -) 1,000 mls @ 100 mls/hr IV ASDIR [facility] Last Admin: 08/20/19 12:00 Dose: 100 mls/hr Documented by: Losartan Potassium (Cozaar -) 50 mg PO DAILY [facility] Metoprolol Succinate (Toprol Xl -) 25 mg PO DAILY [facility] Last Admin: 08/21/19 09:11 Dose: 25 mg Documented by: Mupirocin (Bactroban Ointment (For Decolonization) -) 1 applic NS BID [facility] Stop: 08/23/19 21:59 Last Admin: 08/21/19 09:11 Dose: 1 applic Documented by: Pantoprazole Sodium (Protonix Iv) 40 mg IVPUSH DAILY [facility] Last Admin: 08/21/19 09:11 Dose: 40 mg Documented by: - Objective Vital Signs: Vital Signs Temperature 98.5 F 08/21/19 06:00 Pulse Rate 84 08/21/19 06:00 Respiratory Rate 17 08/21/19 09:00 Blood Pressure 163/95 08/21/19 06:00 O2 Sat by Pulse Oximetry (%) 100 08/21/19 09:00 Constitutional: Yes: No Distress, Obese Eyes: Yes: Conjunctiva Clear Cardiovascular: Yes: Regular Rate and Rhythm, S1, S2 Respiratory: Yes: CTA Bilaterally Gastrointestinal: Yes: Normal Bowel Sounds, Soft, Abdomen, Obese. No: Tenderness Labs: CBC, BMP 08/21/19 05:58 08/21/19 05:58 INR, PTT INR 1.18 (0.83-1.09) H 08/18/19 11:00 Assessment/Plan NO CLEAR INFECTIOUS FOCUS OBSERVE OFF ANTIBIOTICS
[2019-08-21 12:07] LABS: ANTIGLOMERULAR BASEMENT MEN.AB 2 units (0-20)
--- NOTE | 2019-08-21 12:08 | PN ---
Teaching Attending Note Name of Resident: Corazon West ATTENDING PHYSICIAN STATEMENT I saw and evaluated the patient. I reviewed the resident's note and discussed the case with the resident. I agree with the resident's findings and plan as documented. SUBJECTIVE: Pt seen and examined in the ICU. Mental status remains improved. Urine output and renal function continue to improve. OBJECTIVE: Vital Signs Period Temp Pulse Resp BP Sys/Lopez Pulse Ox Last 24 Hr 98.5 F-98.7 F 84-109 13-21 129-163/85-104 100-100 Intake & Output 08/18/19 08/19/19 08/20/19 08/21/19 23:59 23:59 23:59 23:59 Intake Total 6857.5 3271.5 3500 1550 Output Total 2475 6650 2200 1200 Balance 4382.5 -3378.5 1300 350 Weight 77.111 kg 95.844 kg 95.708 kg 97.114 kg Gen: more alert, awake Heart: RRR Lung: decreased breath sounds at the bases Abd: soft, some TTP LUQ Ext: no edema CBC, BMP 08/21/19 05:58 08/21/19 05:58 Active Medications Chlorhexidine Gluconate (Hibiclens For Decolonization -) 1 applic TP HS [facility] Last Admin: 08/20/19 22:09 Dose: 1 applic Documented by: Heparin Sodium (Porcine) (Heparin -) 5,000 unit SQ TID [facility] Last Admin: 08/21/19 06:02 Dose: 5,000 unit Documented by: Hydrochlorothiazide (Hctz -) 12.5 mg PO DAILY [facility] Dextrose (D5w -) 1,000 mls @ 100 mls/hr IV ASDIR [facility] Last Admin: 08/20/19 12:00 Dose: 100 mls/hr Documented by: Losartan Potassium (Cozaar -) 50 mg PO DAILY [facility] Metoprolol Succinate (Toprol Xl -) 25 mg PO DAILY [facility] Last Admin: 08/21/19 09:11 Dose: 25 mg Documented by: Mupirocin (Bactroban Ointment (For Decolonization) -) 1 applic NS BID [facility] Stop: 08/23/19 21:59 Last Admin: 08/21/19 09:11 Dose: 1 applic Documented by: Pantoprazole Sodium (Protonix Iv) 40 mg IVPUSH DAILY [facility] Last Admin: 08/21/19 09:11 Dose: 40 mg Documented by: ASSESSMENT AND PLAN: Metabolic Encephalopathy resolved Acute Kidney Injury Hyperkalemia resolved Hyponatremia Acute Colitis h/o Diverticulitis Septic Shock resolving CAD Liver Cirrhosis Asthma HTN DM - completed antibiotics - monitor urine output, creatinine - off pressors, maintain MAP >65 - PO as tolerated - aspiration precautions - DVT prophylaxis - can monitor on floor
[2019-08-21] MEDS: DEXTROSE 5%-WATER - 1,000 ML IV SCH (12:32)
[2019-08-21] MEDS: HYDROCHLOROTHIAZIDE 12.5 MG CAPSULE (FP) PO SCH (12:35)
[2019-08-21] MEDS: LOSARTAN POTASSIUM 50 MG TABLET (FP) PO SCH (12:35)
--- NOTE | 2019-08-21 13:29 | PN ---
Progress Note, Physician History of Present Illness: Pt seen and examined at bedside. He is awake and alert. He feels that his breathing is improved today. - Current Medication List Current Medications: Active Medications Chlorhexidine Gluconate (Hibiclens For Decolonization -) 1 applic TP HS [facility] Last Admin: 08/20/19 22:09 Dose: 1 applic Documented by: Heparin Sodium (Porcine) (Heparin -) 5,000 unit SQ TID [facility] Last Admin: 08/21/19 06:02 Dose: 5,000 unit Documented by: Hydrochlorothiazide (Hctz -) 12.5 mg PO DAILY [facility] Last Admin: 08/21/19 12:35 Dose: 12.5 mg Documented by: Dextrose (D5w -) 1,000 mls @ 100 mls/hr IV ASDIR [facility] Last Admin: 08/21/19 12:32 Dose: 100 mls/hr Documented by: Losartan Potassium (Cozaar -) 50 mg PO DAILY [facility] Last Admin: 08/21/19 12:35 Dose: 50 mg Documented by: Metoprolol Succinate (Toprol Xl -) 25 mg PO DAILY [facility] Last Admin: 08/21/19 09:11 Dose: 25 mg Documented by: Mupirocin (Bactroban Ointment (For Decolonization) -) 1 applic NS BID [facility] Stop: 08/23/19 21:59 Last Admin: 08/21/19 09:11 Dose: 1 applic Documented by: Pantoprazole Sodium (Protonix Iv) 40 mg IVPUSH DAILY [facility] Last Admin: 08/21/19 09:11 Dose: 40 mg Documented by: - Objective Vital Signs: Vital Signs Temperature 98.8 F 08/21/19 10:00 Pulse Rate 80 08/21/19 12:00 Respiratory Rate 24 H 08/21/19 12:00 Blood Pressure 160/97 08/21/19 12:00 O2 Sat by Pulse Oximetry (%) 100 08/21/19 09:00 Constitutional: Yes: Calm Eyes: Yes: Conjunctiva Clear HENT: Yes: Atraumatic Cardiovascular: Yes: S1, S2 Respiratory: Yes: On Nasal O2 Gastrointestinal: Yes: Soft Genitourinary: Yes: Rodriguez Present Musculoskeletal: Yes: WNL Edema: No Neurological: Yes: Oriented Psychiatric: Yes: Oriented Labs: CBC, BMP 08/21/19 05:58 08/21/19 05:58 INR, PTT INR 1.18 (0.83-1.09) H 08/18/19 11:00 Problem List - Problems (1) Acute kidney injury Code(s): N17.9 - ACUTE KIDNEY FAILURE, UNSPECIFIED (2) Altered mental status Code(s): R41.82 - ALTERED MENTAL STATUS, UNSPECIFIED Qualifiers: Altered mental status type: unspecified Qualified Code(s): R41.82 - Altered mental status, unspecified (3) Hyperkalemia Code(s): E87.5 - HYPERKALEMIA (4) Uremia Code(s): N19 - UNSPECIFIED KIDNEY FAILURE Assessment/Plan Current Medications Generic Name Dose Route Start Last Admin Trade Name Freq PRN Reason Stop Dose Admin Chlorhexidine Gluconate 1 applic 08/18/19 22:00 08/20/19 22:09 Hibiclens For Decolonization - TP 1 applic HS NU Administration Heparin Sodium (Porcine) 5,000 unit 08/19/19 06:00 08/21/19 06:02 Heparin - SQ 5,000 unit TID NU Administration Hydrochlorothiazide 12.5 mg 08/21/19 11:30 08/21/19 12:35 Hctz - PO 12.5 mg DAILY NU Administration Dextrose 1,000 mls @ 100 mls/hr 08/20/19 11:11 08/21/19 12:32 D5w - IV 100 mls/hr ASDIR NU Administration Losartan Potassium 50 mg 08/21/19 11:30 08/21/19 12:35 Cozaar - PO 50 mg DAILY NU Administration Metoprolol Succinate 25 mg 08/21/19 10:00 08/21/19 09:11 Toprol Xl - PO 25 mg DAILY NU Administration Mupirocin 1 applic 08/18/19 22:00 08/21/19 09:11 Bactroban Ointment (For Decolonization) - NS 08/23/19 21:59 1 applic BID NU Administration Pantoprazole Sodium 40 mg 08/19/19 16:00 08/21/19 09:11 Protonix Iv IVPUSH 40 mg DAILY NU Administration Laboratory Tests 08/18/19 08/18/19 08/19/19 11:00 12:15 05:50 Sodium Potassium Magnesium Ammonia < 10.00 L Urine Protein Urine Blood VICKI M-Renaldo Pending ASIA Screen c-ANCA Proteinase 3 (PR3) p-ANCA Atypical p-ANCA Myeloperoxidase Ab Double Strand DNA Ab Glomerular Base Memb Ab COVID-19 (CARLENE) Not detected HIV Ag/Ab Combo Qual 08/19/19 08/19/19 08/20/19 05:50 12:15 11:25 Sodium 136 Potassium Magnesium 2.0 Ammonia Urine Protein Trace Urine Blood Negative VICKI M-Renaldo ASIA Screen Pending c-ANCA Pending Proteinase 3 (PR3) Pending p-ANCA Pending Atypical p-ANCA Pending Myeloperoxidase Ab Pending Double Strand DNA Ab Pending Glomerular Base Memb Ab 2 COVID-19 (CARLENE) HIV Ag/Ab Combo Qual 08/21/19 08/21/19 05:58 05:58 Sodium 136 Potassium 3.3 L Magnesium 1.6 L Ammonia Urine Protein Urine Blood VICKI M-Renaldo ASIA Screen c-ANCA Proteinase 3 (PR3) p-ANCA Atypical p-ANCA Myeloperoxidase Ab Double Strand DNA Ab Glomerular Base Memb Ab COVID-19 (CARLENE) HIV Ag/Ab Combo Qual Negative Impression 1. KERLINE 2. hyperkalemia 3. shock 4. altered mental status 5. hypotension 6. r/o covid 7. lymphadenopathy on ct scan 8. sepsis 9. hx diverticulitis 10. asthma 11. liver cirrhosis 12. met acidosis 13. hx etoh abuse Plan - renal function is improved - replace lytes - can stop hctz as he is on fluids - decrease rate of fluids - follow serologies - ua improved - cont to monitor lytes - neuro follow up - pt no off of pressors
--- NOTE | 2019-08-21 15:07 | PN ---
Physical Exam: SUBJECTIVE: Patient seen and examined, was wide awake and seems to be struggling mentally. Said that "I haven't slept" and "I am going crazy) because he is not receiving his ambien. He said he takes 5mg ambien every night and his doctor increased it to 10mg. He also said that "I'm walking out the hospital if I am being tortured like this". Also, endorsed traveling back from [place] June 23, 2019. It was not a good trip because he had to burry his mother. He thinks he has been in the hospital for 2 nights. He was given benadryl and melatonin and was very sleepy when seen later in the morning. Urine 2200cc, last BM on 08/20/2019. I also spoke to his on the phone, she said that he is feeling very hot and that we should try to cool the room. Also, she spoke to "Dr. Rodriguez" who is apparently the surgeon operating on his foot this Wednesday at 1pm, he needs medical clearance and an vitamin profile before the patient leaves the hospital. Furthermore, the indicated that the patient told her that he received a psych eval and the benadryl with melatonin. OBJECTIVE: Vital Signs Period Temp Pulse Resp BP Sys/Lopez Pulse Ox Last 24 Hr 98.5 F-98.8 F 79-104 12-24 129-163/69-103 100-100 GENERAL: AOx3, appears to be in mild distress HEAD: Normal with no signs of trauma. Has tender firm nodule on L parietal area of scalp NECK: full range of motion. LUNGS: Breath sounds equal, clear to auscultation bilaterally, no wheezes, no crackles. HEART: tachycardic, sinus rhythm, S1, S2 with diastolic murmur, no rub or gallop. ABDOMEN: Soft, nontender, distended, normoactive bowel sounds, mild guarding, no rebound, no hepatosplenomegaly, no masses. EXTREMITIES: warm, well-perfused, no edema. L foot in cast. R ankle tender to palpation NEUROLOGICAL: Normal speech, gait not observed. PSYCH: distressed mood, constricted affect. SKIN: Warm, no rashes or lesions noted Laboratory Results - last 24 hr 08/19/19 08/20/19 08/21/19 05:50 21:38 05:58 WBC RBC Hgb Hct MCV MCH MCHC RDW Plt Count MPV Absolute Neuts (auto) Neutrophils % Lymphocytes % Monocytes % Eosinophils % Basophils % Nucleated RBC % Sodium Potassium 3.4 L Chloride Carbon Dioxide Anion Gap BUN Creatinine Est GFR (CKD-EPI)AfAm Est GFR (CKD-EPI)NonAf Random Glucose Calcium Phosphorus Magnesium Total Bilirubin AST ALT Alkaline Phosphatase Total Protein Albumin Double Strand DNA Ab 2 Glomerular Base Memb Ab 2 HIV Ag/Ab Combo Qual Negative 08/21/19 08/21/19 05:58 05:58 WBC 7.5 RBC 3.58 L Hgb 10.8 L Hct 31.5 L MCV 88.0 MCH 30.2 MCHC 34.3 RDW 15.7 Plt Count 267 MPV 7.7 Absolute Neuts (auto) 4.6 Neutrophils % 61.4 Lymphocytes % 24.9 Monocytes % 9.2 Eosinophils % 3.9 Basophils % 0.6 Nucleated RBC % 0 Sodium 136 Potassium 3.3 L Chloride 105 Carbon Dioxide 20 L Anion Gap 11 BUN 29.3 H Creatinine 0.8 Est GFR (CKD-EPI)AfAm 124.16 Est GFR (CKD-EPI)NonAf 107.13 Random Glucose 157 H Calcium 8.7 Phosphorus 2.2 L Magnesium 1.6 L Total Bilirubin 1.1 H AST 25 ALT 24 Alkaline Phosphatase 94 Total Protein 5.8 L Albumin 2.6 L Double Strand DNA Ab Glomerular Base Memb Ab HIV Ag/Ab Combo Qual Active Medications Generic Name Dose Route Start Last Admin Trade Name Freq PRN Reason Stop Dose Admin Chlorhexidine Gluconate 1 applic 08/18/19 22:00 08/20/19 22:09 Hibiclens For Decolonization - TP 1 applic HS NU Administration Heparin Sodium (Porcine) 5,000 unit 08/19/19 06:00 08/21/19 06:02 Heparin - SQ 5,000 unit TID NU Administration Hydrochlorothiazide 12.5 mg 08/21/19 11:30 08/21/19 12:35 Hctz - PO 12.5 mg DAILY NU Administration Losartan Potassium 50 mg 08/21/19 11:30 08/21/19 12:35 Cozaar - PO 50 mg DAILY NU Administration Metoprolol Succinate 25 mg 08/21/19 10:00 08/21/19 09:11 Toprol Xl - PO 25 mg DAILY NU Administration Mupirocin 1 applic 08/18/19 22:00 08/21/19 09:11 Bactroban Ointment (For Decolonization) - NS 08/23/19 21:59 1 applic BID NU Administration Pantoprazole Sodium 40 mg 08/19/19 16:00 08/21/19 09:11 Protonix Iv IVPUSH 40 mg DAILY NU Administration ASSESSMENT/PLAN: Pt is a 48 y/o male with DM, HTN, tobacco use disorder, diverticulitis, cirrhosis (hx ETOH use disorder, has not drank in 1 year), and asthma who presents with AMS, brought in by his . He was recently hospitalized (07/29- 08/04) for similar symptoms with no definitive diagnosis and came in with a fractured L foot for which he was scheduled to undergo surgery on Wednesday per his . Physical exam was notable for AMS, CT scan was concerning for colitis, and BMP indicated an KERLINE. He is currently evaluated and/or treated for AMS, acute vs. chronic colitis, shock, and electrolyte dysregulation. #neuro A&Ox3, lethargic - CT in July showed chronic right basal ganglia infarct, otherwise unremarkable - ?hx ETOH use, consider Wernicke's - d/c'd IV thiamine - urine tox screen was negative - BUN 98 on admission now down to 43 - placed psychiatric consult #cardio shock - pt initially hypotensive, responded to fluids and pressors - gradually decreased levo and now off pressor - d/c'd fluid resuscitation - MAPs consistently elevated range 103-120 - started home losartan and HCTZ (need to monitor Na since HCTZ can cause decreased Na) #pulm - CT chest shows b/l groundglass opacities but are not consistent with COVID pattern - COVID not detectable - COVID test x2 negative in the last 3 weeks - keep SpO2 >88 - Breathing comfortably on RA satting 100% #renal KERLINE - resolved -Cr on records from last month WNL -Cr 6.1 at presentation down to 0.8 now (initial labs hemolyzed) -d/c sodium bicarb in D5W for IV fluids -renal following #ID r/o septic shock - d/c'd cefepime and flagyl - started metronidazole - COVID non-detectable for this and previous hospital visits - Blood culture shows no growth to date - UA negative - Urine cx pending - ID is on board #GI - CT abd shows transverse and ascending chronic vs acute colitis - started metronidazole - c/o abdominal/chest pain/burning during this admission and noted at [facility] - switched from famotidine to pantoprazole #PPX - DVT: heparin - GI: pantoprazole #FEN - d/c'd sodium bicarb in D5W - d/c'd D5W - K decreased to 3.3 - started repleting, monitor with am labs - low phos 2.2 and Mg 1.6 - repleted, monitor with am labs - d/c'd desmopressin - diabetic/sodium diet Dispo: continue monitoring in the ICU Susy #: [phone] Visit type - Emergency Visit Emergency Visit: Yes ED Registration Date: 08/18/19 Care time: The patient presented to the Emergency Department on the above date and was hospitalized for further evaluation of their emergent condition. - New Patient This patient is new to me today: No - Critical Care Critical Care patient: Yes Total Critical Care Time (in minutes): 37 Critical Care Statement: The care of this patient involved high complexity decision making to prevent further life threatening deterioration of the patient's condition and/or to evaluate & treat vital organ system(s) failure or risk of failure. ATTENDING PHYSICIAN STATEMENT I saw and evaluated the patient. I reviewed the resident's note and discussed the case with the resident. I agree with the resident's findings and plan as documented. SUBJECTIVE: OBJECTIVE: ASSESSMENT AND PLAN:
[2019-08-21 19:06] LABS: HEP B CORE AB, TOT Negative (Negative)
[2019-08-21] MEDS ORDERED: ONDANSETRON 4 MG/2 ML VIAL ONE (19:48)
[2019-08-21] MEDS ORDERED: MELATONIN 5 MG TABLETS PO PRN (19:58)
[2019-08-21] MEDS ORDERED: diphenhydrAMINE HCL 25 MG CAPSULE (FP) PO ONE (19:59)
[2019-08-21] MEDS ORDERED: DICYCLOMINE HCL 10 MG CAPSULE PO ONE (21:42)
[2019-08-21] MEDS: SIMETHICONE 80 MG TAB.CHEW (FP) PO PRN (22:34)
[2019-08-21] MEDS: CHLORHEXIDINE GLUCONATE 4% CLEANSER FOR DECOLONIZATION TP SCH (22:35)
[2019-08-22] MEDS: SIMETHICONE 80 MG TAB.CHEW (FP) PO PRN ×2 (01:53→06:00)
[2019-08-22] MEDS ORDERED: ACETAMINOPHEN 325 MG TABLET (FP) PO ONE (02:15)
[2019-08-22] MEDS: HEPARIN NA (PORCINE) 5,000 UNITS/ML 1ML VIAL SQ SCH ×2 (06:00→13:17)
[2019-08-22 07:44] LABS: BASO % 0.4 % (0-2.0); EOS % 3.2 % (0-4.5); HEMATOCRIT 35.3 % (35.4-49); HEMOGLOBIN 12.1 GM/dL (11.7-16.9); LYMPH % 26.1 % (8-40); MCH 30.7 pg (25.7-33.7); MCHC 34.3 g/dl (32.0-35.9); MEAN CELL VOLUME 89.6 fl (80-96); MEAN PLT VOLUME 7.9 fl (7.5-11.1); MONO % 10.8 % (3.8-10.2); NEUT % 59.5 % (42.8-82.8); PLATELET COUNT 299 K/MM3 (134-434); RBC 3.93 M/mm3 (4.00-5.60); RDW 15.5 % (11.9-15.9); WHITE BLOOD COUNT 7.8 K/mm3 (4.0-10.0)
[2019-08-22 08:03] LABS: BILIRUBIN,TOTAL 1.1 mg/dL (0.2-1); BLOOD UREA NITROGEN 19.8 mg/dL (7-18); CALCIUM 9.4 mg/dL (8.5-10.1); CREATININE 0.8 mg/dL (0.55-1.3); MAGNESIUM 1.6 mg/dL (1.8-2.4); PHOSPHOROUS 5.1 mg/dL (2.5-4.9); POTASSIUM 3.4 mmol/L (3.5-5.1); TOT PROT 6.7 g/dl (6.4-8.2)
[2019-08-22] MEDS: LOSARTAN POTASSIUM 50 MG TABLET (FP) PO SCH (09:10)
[2019-08-22] MEDS: HYDROCHLOROTHIAZIDE 12.5 MG CAPSULE (FP) PO SCH (09:10)
[2019-08-22] MEDS ORDERED: metoPROLOL SUCCINATE 25 MG TAB.SR.24H (FP) PO SCH (10:00)
[2019-08-22] MEDS ORDERED: PANTOPRAZOLE SODIUM 40 MG VIAL IVPUSH SCH (10:00)
[2019-08-22] MEDS ORDERED: MUPIROCIN 2% TOPICAL OINTMENT FOR DECOLONIZATION NS SCH (10:00)
--- NOTE | 2019-08-22 10:31 | PN ---
Progress Note (short form) - Note Progress Note: Resting in NAD on RA. Denies CP or SOB. No acute events overnight. Intake & Output 08/19/19 08/20/19 08/21/19 08/22/19 23:59 23:59 23:59 23:59 Intake Total 3271.5 3500 1950 10 Output Total 6650 2200 2600 200 Balance -3378.5 1300 -650 -190 Weight 211 lb 4.8 oz 211 lb 211 lb Last Vital Signs Temp Pulse Resp BP Pulse Ox 98.7 F 105 H 18 142/101 H 99 08/22/19 05:23 08/22/19 05:23 08/22/19 05:23 08/22/19 05:23 08/22/19 01:58 Active Medications Heparin Sodium (Porcine) (Heparin -) 5,000 unit SQ TID [facility] Last Admin: 08/22/19 06:00 Dose: 5,000 unit Documented by: Hydrochlorothiazide (Hctz -) 12.5 mg PO DAILY [facility] Last Admin: 08/22/19 09:10 Dose: 12.5 mg Documented by: Losartan Potassium (Cozaar -) 50 mg PO DAILY [facility] Last Admin: 08/22/19 09:10 Dose: 50 mg Documented by: Melatonin (Melatonin) 5 mg PO HS PRN PRN Reason: INSOMNIA Last Admin: 08/22/19 00:11 Dose: 5 mg Documented by: Metoprolol Succinate (Toprol Xl -) 25 mg PO DAILY [facility] Last Admin: 08/22/19 09:10 Dose: 25 mg Documented by: Pantoprazole Sodium (Protonix Iv) 40 mg IVPUSH DAILY [facility] Last Admin: 08/22/19 09:10 Dose: 40 mg Documented by: Simethicone (Mylicon -) 80 mg PO Q4H PRN PRN Reason: GAS Last Admin: 08/22/19 06:00 Dose: 80 mg Documented by: Gen: Awake and alert, NAD Heart: RRR Lung: decreased breath sounds at the bases Abd: soft, minimal tenderness, (+) BS Ext: no edema Laboratory Results - last 24 hr 08/19/19 08/21/19 08/22/19 05:50 05:58 06:30 WBC 7.8 RBC 3.93 L Hgb 12.1 Hct 35.3 L MCV 89.6 MCH 30.7 MCHC 34.3 RDW 15.5 Plt Count 299 MPV 7.9 Absolute Neuts (auto) 4.6 Neutrophils % 59.5 Lymphocytes % 26.1 Monocytes % 10.8 H Eosinophils % 3.2 Basophils % 0.4 Nucleated RBC % 0 Sodium Potassium Chloride Carbon Dioxide Anion Gap BUN Creatinine Est GFR (CKD-EPI)AfAm Est GFR (CKD-EPI)NonAf Random Glucose Calcium Phosphorus Magnesium Total Bilirubin AST ALT Alkaline Phosphatase Total Protein Albumin Double Strand DNA Ab 2 Glomerular Base Memb Ab 2 Hep A IgM Ab Confirm Negative Hepatitis A Ab Total Positive H Hep Bs Antigen Negative Hep Bs Antibody Reactive Hep B Core Total Ab Negative Hep B Core IgM Ab Negative Hepatitis Be Antibody Negative Hepatitis Be Antigen Negative HIV Ag/Ab Combo Qual Negative 08/22/19 06:30 WBC RBC Hgb Hct MCV MCH MCHC RDW Plt Count MPV Absolute Neuts (auto) Neutrophils % Lymphocytes % Monocytes % Eosinophils % Basophils % Nucleated RBC % Sodium 136 Potassium 3.4 L Chloride 101 Carbon Dioxide 21 Anion Gap 14 BUN 19.8 H Creatinine 0.8 Est GFR (CKD-EPI)AfAm 124.16 Est GFR (CKD-EPI)NonAf 107.13 Random Glucose 156 H Calcium 9.4 Phosphorus 5.1 H Magnesium 1.6 L Total Bilirubin 1.1 H AST 26 ALT 31 Alkaline Phosphatase 104 Total Protein 6.7 Albumin 3.0 L Double Strand DNA Ab Glomerular Base Memb Ab Hep A IgM Ab Confirm Hepatitis A Ab Total Hep Bs Antigen Hep Bs Antibody Hep B Core Total Ab Hep B Core IgM Ab Hepatitis Be Antibody Hepatitis Be Antigen HIV Ag/Ab Combo Qual ASSESSMENT AND PLAN: Metabolic Encephalopathy resolved Acute Kidney Injury Hyperkalemia resolved Hyponatremia Acute Colitis h/o Diverticulitis Septic Shock resolving CAD Liver Cirrhosis Asthma HTN DM - completed antibiotics - monitor urine output, creatinine - PO as tolerated - aspiration precautions - DVT prophylaxis Dr Castro
--- NOTE | 2019-08-22 11:17 | PN ---
Progress Note (short form) - Note Progress Note: Neurology HISTORY OF PRESENT ILLNESS: Pt is a 48 y/o male with DM, HTN, tobacco use disorder, diverticulitis, cirrhosis (hx ETOH use disorder, has not drank in 1 year), and asthma who presents with AMS, brought in by his on day admission. Medical records indicate, pt reported returning from [place] in June, and pt self-quaranted. denies any recent travel or known covid contacts on day of admission. He was previously seen at [facility] in mid July (07/29-08/03) for lethargy, chest pain, and possible viral pneumonitis. Pt had elevated d-dimer and ground glass opacities on CT which was concerning for COVID but pt was negative x2. Pt was briefly intubated during admission and requiring heavy sedation. CT head showed chronic basal infarct. LP was negative. EKG and troponins were unremarkable. He was treated empirically with ceftriaxone and acyclovir. He was discharged with doxycycline. Per , the pt has not fully recovered after discharge. He is still weak and recently fell down the stairs and broke his left foot. Timing is unclear. He is scheduled to have surgery next week at [facility]. She also reports he was given amlodipine at discharge and was hypotensive, so she took the pill bottle away from him several days ago. She saw today that he had the pill bottle again. She is unsure if he took any. She also reports decreased PO intake in the last week. On day of admission, presented in the ED he complained of sudden onset burning substernal/epigastric pain. He remains lethargic and has difficulty answering questions. Repeat CT head without acute changes. Brain MRI completed, mild volume loss without acute pathology. Downgraded from ICU and now floor status. Getting continued treatment for KERLINE and underlying toxic metabolic encephalopathy. Continue to improve in mental status and remain awake. Active Medications Heparin Sodium (Porcine) (Heparin -) 5,000 unit SQ TID [facility] Last Admin: 08/22/19 06:00 Dose: 5,000 unit Documented by: Hydrochlorothiazide (Hctz -) 12.5 mg PO DAILY [facility] Last Admin: 08/22/19 09:10 Dose: 12.5 mg Documented by: Losartan Potassium (Cozaar -) 50 mg PO DAILY [facility] Last Admin: 08/22/19 09:10 Dose: 50 mg Documented by: Melatonin (Melatonin) 5 mg PO HS PRN PRN Reason: INSOMNIA Last Admin: 08/22/19 00:11 Dose: 5 mg Documented by: Metoprolol Succinate (Toprol Xl -) 25 mg PO DAILY [facility] Last Admin: 08/22/19 09:10 Dose: 25 mg Documented by: Pantoprazole Sodium (Protonix Iv) 40 mg IVPUSH DAILY [facility] Last Admin: 08/22/19 09:10 Dose: 40 mg Documented by: Simethicone (Mylicon -) 80 mg PO Q4H PRN PRN Reason: GAS Last Admin: 08/22/19 06:00 Dose: 80 mg Documented by: PHYSICAL EXAMINATION Vital Signs Period Temp Pulse Resp BP Sys/Lopez Pulse Ox Last 24 Hr 98.0 F-98.8 F 80-105 15-32 122-160/85-112 99-99 GENERAL: Lethargic, oriented x1 HEAD: Normal with no signs of trauma. EYES: Pupils equal, round and reactive to light, extraocular movements intact, conjunctiva clear. EARS, NOSE, THROAT: Ears normal, nares patent, moist mucous membranes. NECK: Normal range of motion, no JVD. LUNGS: Clear to auscultation anteriorly. On NC. HEART: Regular rate and rhythm, no murmur appreciated. Chest non-tender to palpation. ABDOMEN: Soft, nontender, not distended, normoactive bowel sounds, no ecchymosis. UPPER EXTREMITIES: Warm, well-perfused. No peripheral edema. LOWER EXTREMITIES: Warm, well-perfused. No calf tenderness. No peripheral edema. NEUROLOGICAL: Cranial nerves II-XII intact. awake, alert, moving all extremities equally, sensory intact PSYCHIATRIC: Cooperative. Good eye contact. Appropriate mood and affect. SKIN: Warm, dry, normal turgor, no rashes or lesions noted. CBCD WBC 7.8 K/mm3 (4.0-10.0) 08/22/19 06:30 RBC 3.93 M/mm3 (4.00-5.60) L 08/22/19 06:30 Hgb 12.1 GM/dL (11.7-16.9) 08/22/19 06:30 Hct 35.3 % (35.4-49) L 08/22/19 06:30 MCV 89.6 fl (80-96) 08/22/19 06:30 MCHC 34.3 g/dl (32.0-35.9) 08/22/19 06:30 RDW 15.5 % (11.9-15.9) 08/22/19 06:30 Plt Count 299 K/MM3 (134-434) 08/22/19 06:30 MPV 7.9 fl (7.5-11.1) 08/22/19 06:30 CMP Sodium 136 mmol/L (136-145) 08/22/19 06:30 Potassium 3.4 mmol/L (3.5-5.1) L 08/22/19 06:30 Chloride 101 mmol/L (98-107) 08/22/19 06:30 Carbon Dioxide 21 mmol/L (21-32) 08/22/19 06:30 Anion Gap 14 MMOL/L (8-16) 08/22/19 06:30 BUN 19.8 mg/dL (7-18) H 08/22/19 06:30 Creatinine 0.8 mg/dL (0.55-1.3) 08/22/19 06:30 Calcium 9.4 mg/dL (8.5-10.1) 08/22/19 06:30 Total Bilirubin 1.1 mg/dL (0.2-1) H 08/22/19 06:30 AST 26 U/L (15-37) 08/22/19 06:30 ALT 31 U/L (13-61) 08/22/19 06:30 Alkaline Phosphatase 104 U/L (45-117) 08/22/19 06:30 Total Protein 6.7 g/dl (6.4-8.2) 08/22/19 06:30 Albumin 3.0 g/dl (3.4-5.0) L 08/22/19 06:30 ASSESSMENT/PLAN: Pt is a 48 y/o male with DM, HTN, tobacco use disorder, diverticulitis, cirrhosis (hx ETOH use disorder, has not drank in 1 year), and asthma who presents with AMS, brought in by his . He was recently hospitalized (07/29- 08/04) for similar symptoms with no definitive diagnosis. Medical records indicate, pt reported returning from [place] in June, and pt self-quaranted. denies any recent travel or known covid contacts on day of admission. He was previously seen at [facility] in mid July (07/29-08/03) for lethargy, chest pain, and possible viral pneumonitis. Pt had elevated d-dimer and ground glass opacities on CT which was concerning for COVID but pt was negative x2. Pt was briefly intubated during admission and requiring heavy sedation. CT head showed chronic basal infarct. LP was negative. EKG and troponins were unremarkable. He was treated empirically with ceftriaxone and acyclovir. He was discharged with doxycycline. Per , the pt has not fully recovered after discharge. He is still weak and recently fell down the stairs and broke his left foot. Timing is unclear. He is scheduled to have surgery next week at [facility]. She also reports he was given amlodipine at discharge and was hypotensive, so she took the pill bottle away from him several days ago. She saw today that he had the pill bottle again. She is unsure if he took any. She also reported decreased PO intake in the last week. On day of admission, presented in the ED he complained of sudden onset burning substernal/epigastric chest pain. He remains lethargic and has difficulty answering questions. Repeat CT head without acute changes. Brain MRI completed, mild volume loss without acute pathology. Downgraded from ICU and now floor status. Getting continued treatment for KERLINE a nd underlying toxic metabolic encephalopathy. Continue to improve in mental status and remain awake. Continue medical optimization, Maintain adequate hydration, monitor blood pressure, maintain normotensive range. Frequent reorientation recommended.
[2019-08-22] MEDS ORDERED: MAGNESIUM OXIDE 400 MG TABLET (FP) PO ONE (14:55)
[2019-08-22] MEDS ORDERED: POTASSIUM CHLORIDE TABS 20 MEQ TABLET.ER (FP) PO ONE (14:55)
--- NOTE | 2019-08-22 15:02 | PN ---
Progress Note, Physician History of Present Illness: Pt seen and examined at bedside. He is awake and alert. He denies shortness of breath. He is asking to go home. - Current Medication List Current Medications: Active Medications Heparin Sodium (Porcine) (Heparin -) 5,000 unit SQ TID [facility] Last Admin: 08/22/19 13:17 Dose: 5,000 unit Documented by: Hydrochlorothiazide (Hctz -) 12.5 mg PO DAILY [facility] Last Admin: 08/22/19 09:10 Dose: 12.5 mg Documented by: Losartan Potassium (Cozaar -) 50 mg PO DAILY [facility] Last Admin: 08/22/19 09:10 Dose: 50 mg Documented by: Magnesium Oxide (Mag-Ox -) 800 mg PO ONCE ONE Stop: 08/22/19 14:56 Melatonin (Melatonin) 5 mg PO HS PRN PRN Reason: INSOMNIA Last Admin: 08/22/19 00:11 Dose: 5 mg Documented by: Metoprolol Succinate (Toprol Xl -) 25 mg PO DAILY [facility] Last Admin: 08/22/19 09:10 Dose: 25 mg Documented by: Pantoprazole Sodium (Protonix Iv) 40 mg IVPUSH DAILY [facility] Last Admin: 08/22/19 09:10 Dose: 40 mg Documented by: Potassium Chloride (K-Dur -) 40 meq PO ONCE ONE Stop: 08/22/19 14:56 Simethicone (Mylicon -) 80 mg PO Q4H PRN PRN Reason: GAS Last Admin: 08/22/19 06:00 Dose: 80 mg Documented by: - Objective Vital Signs: Vital Signs Temperature 98.2 F 08/22/19 09:15 Pulse Rate 105 H 08/22/19 09:15 Respiratory Rate 18 08/22/19 09:15 Blood Pressure 122/85 08/22/19 09:15 O2 Sat by Pulse Oximetry (%) 99 08/22/19 09:00 Constitutional: Yes: Calm Eyes: Yes: Conjunctiva Clear HENT: Yes: Atraumatic Neck: Yes: Supple Cardiovascular: Yes: S1, S2 Respiratory: Yes: CTA Bilaterally Gastrointestinal: Yes: Soft Genitourinary: Yes: WNL Musculoskeletal: Yes: WNL Edema: No Neurological: Yes: Oriented Psychiatric: Yes: Oriented Labs: CBC, BMP 08/22/19 06:30 08/22/19 06:30 INR, PTT INR 1.18 (0.83-1.09) H 08/18/19 11:00 Problem List - Problems (1) Acute kidney injury Code(s): N17.9 - ACUTE KIDNEY FAILURE, UNSPECIFIED (2) Altered mental status Code(s): R41.82 - ALTERED MENTAL STATUS, UNSPECIFIED Qualifiers: Altered mental status type: unspecified Qualified Code(s): R41.82 - Altered mental status, unspecified (3) Hyperkalemia Code(s): E87.5 - HYPERKALEMIA (4) Uremia Code(s): N19 - UNSPECIFIED KIDNEY FAILURE Assessment/Plan Current Medications Generic Name Dose Route Start Last Admin Trade Name Freq PRN Reason Stop Dose Admin Heparin Sodium (Porcine) 5,000 unit 08/22/19 06:00 08/22/19 13:17 Heparin - SQ 5,000 unit TID NU Administration Hydrochlorothiazide 12.5 mg 08/21/19 11:30 08/22/19 09:10 Hctz - PO 12.5 mg DAILY NU Administration Losartan Potassium 50 mg 08/21/19 11:30 08/22/19 09:10 Cozaar - PO 50 mg DAILY NU Administration Melatonin 5 mg 08/21/19 19:58 08/22/19 00:11 Melatonin PO 5 mg HS PRN Administration INSOMNIA Metoprolol Succinate 25 mg 08/22/19 10:00 08/22/19 09:10 Toprol Xl - PO 25 mg DAILY NU Administration Pantoprazole Sodium 40 mg 08/22/19 10:00 08/22/19 09:10 Protonix Iv IVPUSH 40 mg DAILY NU Administration Simethicone 80 mg 08/21/19 19:53 08/22/19 06:00 Mylicon - PO 80 mg Q4H PRN Administration GAS Laboratory Tests 08/19/19 08/19/19 08/19/19 05:50 05:50 12:15 Sodium Potassium BUN Creatinine Magnesium Total Bilirubin Urine Protein Trace Urine Blood Negative VICKI M-Renaldo Pending ASIA Screen Pending c-ANCA Pending Proteinase 3 (PR3) Pending p-ANCA Pending Atypical p-ANCA Pending Myeloperoxidase Ab Pending Double Strand DNA Ab 2 Glomerular Base Memb Ab 2 Hep Bs Antigen Negative Hep Bs Antibody Reactive Hep B Core Total Ab Negative Hep B Core IgM Ab Negative 08/22/19 06:30 Sodium 136 Potassium 3.4 L BUN 19.8 H Creatinine 0.8 Magnesium 1.6 L Total Bilirubin 1.1 H Urine Protein Urine Blood VICKI M-Renaldo ASIA Screen c-ANCA Proteinase 3 (PR3) p-ANCA Atypical p-ANCA Myeloperoxidase Ab Double Strand DNA Ab Glomerular Base Memb Ab Hep Bs Antigen Hep Bs Antibody Hep B Core Total Ab Hep B Core IgM Ab Impression 1. KERLINE 2. hyperkalemia 3. shock 4. altered mental status 5. hypotension 6. r/o covid 7. lymphadenopathy on ct scan 8. sepsis 9. hx diverticulitis 10. asthma 11. liver cirrhosis 12. met acidosis 13. hx etoh abuse 14. elevated bili Plan - insole tacker stable - replace potassium - replace mag - follow serologies - monitor bp - ua improved - cont to monitor lytes
[2019-08-22 15:17] VITALS: BP 131/99; PULSE 99; TEMP 98.6
[2019-08-22 16:07] LABS: ATYPICAL pANCA <1:20 titer (Neg:<1:20); C-ANCA <1:20 titer (Neg:<1:20)
--- NOTE | 2019-08-22 16:15 | CON.PSY ---
Psychiatry Consult Chief Complaint: 48 Year old male seen for Psych evaluatuion. Case discussed with and git npmore detailed history. Patient has no history of Mental illness. He had to go to [place] for family issues and was stuch there for 2 Months.. He developed acute Kidnry failure and was in ICU for 4 days.. feels that he had gone thru lot of Stress. patient wants to go Home and she is wilinmg to take him HOMe.. She does not want him on any psych meds.But will seek Psychotherapy. Symptoms: reports: Depressed Mood - Previous Psychiatric Treatment Outpatient: None Inpatient: None - Previous Substance Abuse Treatment Outpatient: None Inpatient: None - Current Medications Current Medications: Active Medications Heparin Sodium (Porcine) (Heparin -) 5,000 unit SQ TID [facility] Last Admin: 08/22/19 13:17 Dose: 5,000 unit Documented by: Hydrochlorothiazide (Hctz -) 12.5 mg PO DAILY [facility] Last Admin: 08/22/19 09:10 Dose: 12.5 mg Documented by: Losartan Potassium (Cozaar -) 50 mg PO DAILY [facility] Last Admin: 08/22/19 09:10 Dose: 50 mg Documented by: Melatonin (Melatonin) 5 mg PO HS PRN PRN Reason: INSOMNIA Last Admin: 08/22/19 00:11 Dose: 5 mg Documented by: Metoprolol Succinate (Toprol Xl -) 25 mg PO DAILY [facility] Last Admin: 08/22/19 09:10 Dose: 25 mg Documented by: Pantoprazole Sodium (Protonix Iv) 40 mg IVPUSH DAILY [facility] Last Admin: 08/22/19 09:10 Dose: 40 mg Documented by: Simethicone (Mylicon -) 80 mg PO Q4H PRN PRN Reason: GAS Last Admin: 08/22/19 06:00 Dose: 80 mg Documented by: - Allergies Allergies: Allergies Allergy/AdvReac Type Severity Reaction Status Date / Time No Known Allergies Allergy Verified 01/30/17 14:57 - Current Living Status Usual Living Arrangement: With Spouse - Current Mental Status Evaluation Appearance: Well Groomed Attitude: Guarded - Affect Affect: Full Range Appropriateness: Appropriate to Content - Mood Mood: Anxious - Speech/Language Expressive: Coherent - Psychomotor Activity Psychomotor Activity: Normal - Thought Process Thought Process: Intact - Thought Content Hallucinations: Absent Delusions: Absent - Self Perception Self Perception: No Impairment - Cognition Attention: Alert Orientation: Time Memory, Immediate Recall: Intact Memory, Short Term: 3/3 Memory, Remote with Promptin/3 - Concentration Serial Sevens Intact: No Simple Calculations Intact: Yes - Abstraction Proverb Interpretation: Intact Judgement: Minimally Impaired - Insight Insight: Intact - Impulse Control Impulse Control: Good Control - Suicidal Ideation Suicidal Ideation: No - Homicidal Ideation Homicidal Ideation: No Assessment/Plan 1) Patient is not Suicidal or Homicidal at this time. 2) Patient has the Mental Capacity to make decisions at this time.. 3) Can be Discharged HOme with .
--- NOTE | 2019-08-22 16:55 | DS ---
Physical Exam: SUBJECTIVE: He is begging to go home. He appears tearful. OBJECTIVE: Vital Signs Period Temp Pulse Resp BP Sys/Lopez Pulse Ox Last 24 Hr 98.1 F-98.8 F 80-105 16-32 122-158/85-112 99-99 PHYSICAL EXAM GENERAL: The patient is awake, alert, and fully oriented, in no acute distress. HEAD: Normal with no signs of trauma. EYES: PERRL, extraocular movements intact, sclera anicteric, conjunctiva clear. ENT: Ears normal, nares patent, oropharynx clear without exudates, moist mucous membranes. NECK: Trachea midline, full range of motion, supple. LUNGS: Breath sounds equal, clear to auscultation bilaterally, no wheezes, no crackles, no accessory muscle use. HEART: Regular rate and rhythm, S1, S2 without murmur, rub or gallop. ABDOMEN: Soft, nontender, nondistended, normoactive bowel sounds, no guarding, no rebound, no masses. EXTREMITIES: Left foot and leg below the knee wrapped in aubrey bandage. NEUROLOGICAL: Cranial nerves II through XII grossly intact. Normal speech, gait not observed. PSYCH: Normal mood, normal affect. SKIN: Warm, dry, normal turgor, no rashes or lesions noted. LABS Laboratory Results - last 24 hr 08/19/19 08/22/19 08/22/19 05:50 06:30 06:30 WBC 7.8 RBC 3.93 L Hgb 12.1 Hct 35.3 L MCV 89.6 MCH 30.7 MCHC 34.3 RDW 15.5 Plt Count 299 MPV 7.9 Absolute Neuts (auto) 4.6 Neutrophils % 59.5 Lymphocytes % 26.1 Monocytes % 10.8 H Eosinophils % 3.2 Basophils % 0.4 Nucleated RBC % 0 Sodium 136 Potassium 3.4 L Chloride 101 Carbon Dioxide 21 Anion Gap 14 BUN 19.8 H Creatinine 0.8 Est GFR (CKD-EPI)AfAm 124.16 Est GFR (CKD-EPI)NonAf 107.13 Random Glucose 156 H Calcium 9.4 Phosphorus 5.1 H Magnesium 1.6 L Total Bilirubin 1.1 H AST 26 ALT 31 Alkaline Phosphatase 104 Total Protein 6.7 Albumin 3.0 L c-ANCA <1:20 Proteinase 3 (PR3) <3.5 p-ANCA <1:20 Atypical p-ANCA <1:20 Myeloperoxidase Ab <9.0 Hep A IgM Ab Confirm Negative Hepatitis A Ab Total Positive H Hep Bs Antigen Negative Hep Bs Antibody Reactive Hep B Core Total Ab Negative Hep B Core IgM Ab Negative Hepatitis Be Antibody Negative Hepatitis Be Antigen Negative HOSPITAL COURSE: Pt is a 48 y/o male with history of Diabetes Mellitus type 2, HTN, tobacco use disorder, diverticulitis, cirrhosis (hx ETOH use disorder, has not drank in 1 year), and asthma who was brought in by for altered mentation. He was recently hospitalized () for similar symptoms. This hospitali zation he came with a fractured left for for which he is scheduled to undergo surgery this coming Wednesday (Dr Rodriguez) While hospitalized he was briefly in the ICU for septic shock. He was treated in the critical care unit with eventual stabilization. CT scan was concerning for colitis and he also underwent KERLINE which improved with medical management of septic shock. Seen by psychiatry and deemed stable for discharge. and patient refused medications but they said they will seek psychotherapy. Date of Admission:08/18/19 Date of Discharge: 08/22/19 Minutes to complete discharge: 30 Discharge Summary Problems reviewed: Yes Reason For Visit: ACUTE RENAL FAILURE; ALTERED MENTAL STATUS Current Active Problems Acute kidney injury (Acute) Altered mental status (Acute) Hyperkalemia (Acute) Uremia (Acute) Condition: Improved - Instructions Referrals: ON STAFF,NOT [Primary Care Provider] - Disposition: HOME - Home Medications Comprehensive Discharge Medication List: Ambulatory Orders Gabapentin 600 mg PO TID 08/18/19 Losartan/Hydrochlorothiazide [Losartan-Hctz 50-12.5 mg Tab] 1 each PO DAILY 08/18/19 Metoprolol Succinate [Toprol Xl] 25 mg PO DAILY 08/18/19 Chlorhexidine Gluconate [Hibiclens For Decolonization -] 1 applic TP HS #1 bottle 08/22/19 Hydrochlorothiazide [Hctz -] 12.5 mg PO DAILY cap 08/22/19 Melatonin 5 mg PO HS PRN #0 tab 08/22/19 Metoprolol Succinate [Toprol XL -] 25 mg PO DAILY tab.sr.24h 08/22/19 Mupirocin Ointment [Bactroban Ointment (For Decolonization) -] 1 applic NS BID applic 07/07/20 This patient is new to me today: Yes Date on this admission: 08/22/19 Emergency Visit: No Critical Care patient: No - Discharge Referral Referred to [facility] No
== END 2019-08-22 17:38 | disposition home or self-care (01) | DRG 871 ==
LOC: JER 10:20 → JERBED 13:16 → JICU 17:21 → J8W 08-21 23:01
PROVIDERS: ADMIT Internal Medicine; ATTEND Internal Medicine
PROC: 06HN33Z Insertion of Infusion Device into Left Femoral Vein, Percutaneous Approach (ICD-10-PCS; principal; 2019-08-18)
DX: A41.9 Sepsis, unspecified organism (principal); R65.21 Severe sepsis with septic shock; G92 Toxic encephalopathy; N17.9 Acute kidney failure, unspecified; E87.2 Acidosis; E87.1 Hypo-osmolality and hyponatremia; E87.5 Hyperkalemia; E11.9 Type 2 diabetes mellitus without complications; I10 Essential (primary) hypertension; J45.909 Unspecified asthma, uncomplicated; R59.1 Generalized enlarged lymph nodes; K52.9 Noninfective gastroenteritis and colitis, unspecified; I25.10 Atherosclerotic heart disease of native coronary artery without angina pectoris; K70.30 Alcoholic cirrhosis of liver without ascites; E66.9 Obesity, unspecified; Z68.31 Body mass index [BMI] 31.0-31.9, adult
CPT/HCPCS: 36415; 36600; 70450-TC; 70551-TC; 71045-TC-FY; 71250-TC; 74176-TC; 80048; 80053; 80307; 81003; 82140; 82533; 82550; 82553; 82803; 82962; 83516; 83520; 83605; 83735; 83930; 84100; 84132; 84155; 84165; 84443; 84484; 85025; 85610; 85730; 86038; 86225; 86256; 86704; 86706; 86707; 86708; 86709; 87040; 87086; 87340; 87389; 87522; 93005; 93010; 99291; J0131; J1644; J2597; U0003

== ENCOUNTER 2019-08-25 11:06 | Day surgery (SDC) | payer OTHER ==
[2019-08-24 15:28] VITALS: BMI 27.8
[2019-08-25] MEDS ORDERED: LIDOCAINE HCL 1%, 10 MG/ML (20ML VIAL) ONE (13:29)
[2019-08-25] MEDS ORDERED: BUPIVACAINE HCL/PF 0.25% (2.5MG/ML) 10 ML VIAL ONE (13:35)
[2019-08-25] MEDS ORDERED: fentaNYL CITRATE 250 MCG/5 ML VIAL ONE (14:08)
[2019-08-25] MEDS ORDERED: PROPOFOL 20 ML ONE ×2 (14:08)
[2019-08-25] MEDS ORDERED: MIDAZOLAM HCL 2 MG/2 ML SINGLE DOSE VIAL ONE (14:08)
[2019-08-25] MEDS ORDERED: SUCCINYLCHOLINE CHLORIDE 200 MG/10 ML SYRINGE ONE (14:21)
[2019-08-25] MEDS ORDERED: ceFAZolin SODIUM 1 GM VIAL ONE (14:29)
[2019-08-25] MEDS ORDERED: LIDOCAINE HCL 1%, 10 MG/ML (20ML VIAL) NR ONE (14:30)
[2019-08-25] MEDS ORDERED: ceFAZolin 2 GRAM PREMIX BAG IVPB ONE (14:35)
[2019-08-25] MEDS ORDERED: DEXAMETHASONE SOD PHOSPHATE 4 MG/1 ML VIAL ONE (14:48)
[2019-08-25] MEDS ORDERED: HYDROmorphone HCl 2 MG/ML VIAL ONE ×2 (14:51→17:09)
[2019-08-25] MEDS ORDERED: KETOROLAC TROMETHAMINE 30 MG/1 ML VIAL ONE (16:01)
[2019-08-25] MEDS ORDERED: BUPIVACAINE HCL/PF 0.5% (5 MG/ML) 30 ML VIAL IJ ONE (16:10)
[2019-08-25] MEDS ORDERED: BACITRACIN 15 GM TUBE TOPICAL OINTMENT ONE (16:11)
[2019-08-25] MEDS ORDERED: HYDROmorphone HCL CARPU-JECT 2 MG/1 ML DISP.SYRIN IVPUSH ONE (17:00)
[2019-08-25] MEDS ORDERED: oxyCODONE HCL 5 MG TABLET PO PRN ×2 (17:17)
[2019-08-25] MEDS ORDERED: ONDANSETRON 4 MG/2 ML VIAL IVPUSH PRN (17:17)
[2019-08-25] MEDS ORDERED: HYDROmorphone HCl 2 MG/ML VIAL IVPUSH ONE (17:21)
[2019-08-25] MEDS ORDERED: LACTATED RINGERS SOLUTION 1,000 ML IV SCH (17:30)
[2019-08-25 20:01] VITALS: BP 119/76; PULSE 82; TEMP 97.3
--- NOTE | 2019-09-07 18:58 | OP ---
DATE OF OPERATION: 08/25/2019 PREOPERATIVE DIAGNOSIS: Displaced fractures, metatarsals 2 and 3, left foot. POSTOPERATIVE DIAGNOSIS: Displaced fractures, metatarsals 2 and 3, left foot. PROCEDURE: Open reduction, internal fixation of fractured metatarsals 2 and 3. HEMOSTASIS: Ankle tourniquet inflated to 250 mmHg. ANESTHESIA: General. SURGEON: Nico Rodriguez DPM. DESCRIPTION OF PROCEDURE: The patient was prepped and draped in the usual aseptic manner and sent to the OR in stable condition, where a general anesthesia was administered. This was followed by local ankle block with 20 mL lidocaine plain 1%. The foot was then prepped and draped in the usual aseptic manner, and exsanguinated with elevation, an Esmarch bandage. At this time, the tourniquet was inflated to 250 mmHg. Attention was directed to the 2nd and 3rd metatarsals, where a linear incision was made between the two metatarsals, thereby exposing both fractures through one incision. The incision was deepened through blunt and sharp dissection down to the level of the fractured metatarsal heads that were noted to be distal and subluxed dorsally and laterally, completely fractured off of the shaft of metatarsals 2 and 3. First attention was directed to the 2nd metatarsal, where the metatarsal head was mobilized, and then put back in its anatomic position at the distal aspect of the 2nd metatarsal. Once in place, a 0.062-inch Gianni wire was retrograded through the metatarsal head out the front of the foot, and then back into the 1st metatarsal shaft, thereby realigning the head in a perfect anatomic position. This was checked on intraoperative fluoroscopy. At this time, attention was then directed to the 3rd metatarsal, where the 3rd metatarsal head was also noted to be dorsally dislocated and laterally displaced. Via sharp dissection, it was mobilized and then placed in its proper anatomic position to check for proper fit. Once this was accomplished, a Gianni wire of similar size was then placed through the metatarsal head from proximal to distal down to the front of the forefoot and then retrograded back into the metatarsal shaft, thereby stabilizing the head in its proper anatomical position. This was checked on fluoroscopy, and both metatarsal heads were noted to be perfectly aligned. At this point, the wound was then flushed out with copious amounts of sterile water. Deep closure with 3-0 Vicryl suture was performed followed by skin closure of 4-0 Vicryl suture and 4-0 nylon suture in a horizontal mattress technique. Postoperative injectable of 15 mL of Marcaine plain 0.25% was then administered followed by application of Adaptic and dry, sterile, compressive dressing. At this time a very well padded below-knee fiberglass cast was applied to the operative limb and placed in neutral position. It was then bivalved, and then secured with Raul bandage. Prior to application of the cast and prior to application of the bandage, the ankle tourniquet was deflated, and there was an instantaneous hyperemic response noted to return to all digits of the operative foot. Patient was stable throughout the entire procedure and sent to recovery in stable condition. BERE [id number]
== END 2019-08-25 19:40 | disposition home or self-care (01) ==
LOC: JASU-SURG 11:06
PROVIDERS: ATTEND Podiatrist Foot Surgery
PROC: 0QSP04Z Reposition Left Metatarsal with Internal Fixation Device, Open Approach (ICD-10-PCS; 2019-08-25)
PROC: 0QSP04Z Reposition Left Metatarsal with Internal Fixation Device, Open Approach (ICD-10-PCS; principal; 2019-08-25 13:00)
DX: S92.322A Displaced fracture of second metatarsal bone, left foot, initial encounter for closed fracture (principal); S92.332A Displaced fracture of third metatarsal bone, left foot, initial encounter for closed fracture; X58.XXXA Exposure to other specified factors, initial encounter; Y93.9 Activity, unspecified; Y92.9 Unspecified place or not applicable; Y99.9 Unspecified external cause status
CPT/HCPCS: 28485; C1713; 73630-TC-LT; 76000-TC-FY; 94760

== ENCOUNTER 2019-11-12 14:47 | Inpatient (IN) | payer OTHER ==
[2019-11-12 15:19] VITALS: BMI 25.1
[2019-11-12 16:09] LABS: EOS % 5.2 % (0-4.5); HEMATOCRIT 36.3 % (35.4-49); HEMOGLOBIN 12.4 GM/dL (11.7-16.9); LYMPH % 51.9 % (8-40); MCH 32.3 pg (25.7-33.7); MEAN CELL VOLUME 94.9 fl (80-96); MONO % 4.8 % (3.8-10.2); NEUT % 37.1 % (42.8-82.8); RBC 3.83 M/mm3 (4.00-5.60); RDW 13.5 % (11.9-15.9); WHITE BLOOD COUNT 6.2 K/mm3 (4.0-10.0)
[2019-11-12 16:21] LABS: INR 0.98 (0.83-1.09); PROTHROMBIN TIME (PATIENT) 11.6 SEC (9.7-13.0)
[2019-11-12 16:24] LABS: ACTIVATED PTT 20.1 SECONDS (25.2-36.5)
--- NOTE | 2019-11-12 16:26 | PDOC ---
History of Present Illness - General Chief Complaint: Chest Pain Stated Complaint: DIZZINESS/CHEST PAIN Time Seen by Provider: 11/12/19 15:03 History Source: Patient - History of Present Illness Initial Comments: 11/12/19 15:42 49M w/hx HTN, HLD, ascending aortic aneurysm (4.1cm in March), hyponatremia of unknown etiology p/w three days of chest pain, weakness, abdominal pain, and sent for evaluation of hyponatremia. He reports that three days ago he began to note sternal pleuritic chest pain while at rest. He reports L foot pain secondary to a fracture requiring surgical correction. He reports having persistent hyponatremia per his Machinist Mechanic (Dr. Hernandez) which resulted at Na of 124, and was asked to seek ED evaluation. He denies any nausea, vomiting, confusion. He endorses chest pain, generalized weakness, fatigue, lightheadedness. Past History - Medical History Allergies/Adverse Reactions: Allergies Allergy/AdvReac Type Severity Reaction Status Date / Time No Known Allergies Allergy Verified 11/12/19 14:54 Home Medications: Ambulatory Orders Gabapentin 600 mg PO TID 08/18/19 Metoprolol Succinate [Toprol XL -] 25 mg PO DAILY tab.sr.24h 08/22/19 Cholecalciferol (Vitamin D3) [Vitamin D3] 10,000 unit PO DAILY 08/24/19 Esomeprazole Magnesium [Nexium 24Hr] 20 mg PO DAILY 08/24/19 Multivitamin/Iron/Folic Acid [Centrum Adults Tablet] 1 each PO DAILY 08/24/19 Tizanidine HCl 8 mg PO TID 08/24/19 Hydroxyzine HCl 25 mg PO DAILY 11/08/19 Lisinopril 20 mg PO DAILY 11/12/19 Ondansetron HCl [Zofran] 4 mg PO TID 11/12/19 Zolpidem Tartrate [Ambien] 10 mg PO HS 11/12/19 Anemia: No Asthma: Yes ("allergic") Cancer: No Cardiac Disorders: No CVA: Yes (08/04 MRI) COPD: No CHF: No Dementia: No Diabetes: Yes GI Disorders: Yes (diverticulitsis per MD) Disorders: Yes (h/o renal failure-resolved) HTN: Yes Hypercholesterolemia: No Liver Disease: Yes (cirrhosis from MD notes) Seizures: No Thyroid Disease: No - Psycho-Social/Smoking History Smoking Status: Yes Smoking History: Unknown if ever smoked Have you smoked in the past 12 months: Yes Number of Cigarettes Smoked Daily: 20 If you are a former smoker, when did you quit?: july 'Breaking Loose' booklet given: 08/25/19 *Physical Exam - Vital Signs Last Vital Signs Temp Pulse Resp BP Pulse Ox 98 F 71 18 152/72 99 11/12/19 14:52 11/12/19 14:52 11/12/19 14:52 11/12/19 14:52 11/12/19 14:52 ED Treatment Course - LABORATORY CBC & Chemistry Diagram: 11/12/19 15:47 11/12/19 15:47 - RADIOLOGY Radiology Studies Ordered: Category Date Time Status CHEST X-RAY PORTABLE* [RAD] Stat Radiology 11/12/19 15:22 Ordered Discharge - Follow up/Referral Referrals: Aleksandr Fagan [Primary Care Provider] - - Patient Discharge Instructions - Post Discharge Activity
[2019-11-12] MEDS ORDERED: ONDANSETRON 4 MG/2 ML VIAL IVPUSH ONE ×2 (17:04→22:31)
[2019-11-12] MEDS ORDERED: ACETAMINOPHEN 1000 MG/100 ML VIAL (NON FORMULARY) IVPB ONE (17:04)
[2019-11-12 17:25] LABS: MEAN PLT VOLUME 7.3 fl (7.5-11.1); PLATELET COUNT 294 K/MM3 (134-434)
[2019-11-12 17:26] LABS: PLATELET ESTIMATE ADEQUATE
[2019-11-12] MEDS ORDERED: ACETAMINOPHEN INJECTION 100 ML IVPB ONE (17:26)
[2019-11-12 17:35] LABS: ALK PHOS 67 U/L (45-117); ANION GAP 7 MMOL/L (8-16); BILIRUBIN,TOTAL 0.2 mg/dL (0.2-1); BLOOD UREA NITROGEN 8.3 mg/dL (7-18); CALCIUM 9.3 mg/dL (8.5-10.1); CHLORIDE 100 mmol/L (98-107); CO2 21 mmol/L (21-32); CREATININE 0.9 mg/dL (0.55-1.3); GLUCOSE,RANDOM 76 mg/dL (74-106); LIPASE 95 U/L (73-393); POTASSIUM 4.6 mmol/L (3.5-5.1); SGOT/AST 16 U/L (15-37); SGPT/ALT 23 U/L (13-61); SODIUM 129 mmol/L (136-145)
--- NOTE | 2019-11-12 18:36 | PDOC ---
Documentation entered by Agueda Chavez SCRIBE, acting as scribe for Amrita Romero MD. Amrita Romero MD: This documentation has been prepared by the scribe, Agueda Chavez SCRIBE, under my direction and personally reviewed by me in its entirety. I confirm that the documentation accurately reflects all work, treatment, procedures, and medical decision making performed by me. Attending Attestation - Resident Resident Name: JenniferJuan Carlos - ED Attending Attestation I have performed the following: I have examined & evaluated the patient, The case was reviewed & discussed with the resident, I agree w/resident's findings & plan, Exceptions are as noted - HPI HPI: 11/12/19 16:13 The patient is a 49-year-old male with a past medical history significant for DM, HTN, Ascending aortic aneurysm was sent to the emergency department by Dr. Porter for hyponatremia. The patient recently started following Dr. Porter for hyponatremia work, at the office patients sodium was noted to be 130 (1st time), 126 (2nd time), and 124 (3rd time). Dr. Porter sent the patient for further management. The patient reports additional complaints of 3 days of intermittent chest pain/epigastric pain, shortness of breath, generalized weakness, and lightheadedness. Denies triggers for these sxs nor has he ever had them before. The patient is being worked up for a broken foot and is scheduled for a surgical revision consultation tomorrow. Denies headache, focal weakness/numbness, abd pain, LE edema - Physicial Exam PE: 11/12/19 16:55 GENERAL: Awake, alert, and fully oriented, in no acute distress HEAD: No signs of trauma EYES: PERRLA, EOMI, sclera anicteric, conjunctiva clear ENT: Auricles normal inspection, hearing grossly normal, nares patent, oropharynx clear without exudates. Moist mucosa NECK: Normal ROM, supple, no lymphadenopathy, JVD, or masses LUNGS: Breath sounds equal, clear to auscultation bilaterally. No wheezes, and no crackles HEART: Regular rate and rhythm, normal S1 and S2, no murmurs, rubs or gallops ABDOMEN: Soft, nontender, normoactive bowel sounds. No guarding, no rebound. No masses EXTREMITIES: Normal range of motion, no edema. No clubbing or cyanosis. No cords, erythema, or tenderness BACK: No midline spinal tenderness in cervical/thoracic/lumbar region NEUROLOGICAL: Normal speech, cranial nerves intact, negative pronator drift, 5/5 strength in all 4 extremities, normal sensation to light touch in all 4 extremities, normal cerebellar exam, normal gait, normal reflexes and tone SKIN: Warm, Dry, normal turgor, no rashes or lesions noted. - Medical Decision Making 11/11 1700 49yo M hx MMP including HTN, DM presents to the ED with hyponatremia on outpt labs (by Dr Hernandez) and 3 days of CP/SOB BP now 138/78 w/o intervention With regards to hyponatremia, plan to rpt Na in the ED and consider nephrology c/s With regards to CP, in light of hx of aortic aneurysm, will obtain CTA chest/abd/pelvis, labs including trop, and likely obs admit as HS is 4 Will obtain LE US to r/o DVT given recent broken foot 11/110 Na 129, only mild hyponatremia. Urine lytes ordered CTA with stable aortic aneurysm Labs wnl, including trop neg CXR clear B/l LE US negative HS is elevated, will admit for obs/MAUREEN Heart Score/ECG Review - History History: Moderately suspicious - Electrocardiogram EKG: Non specific repolarization disturbance - Age Age: 45-65 - Risk Factors Based on the list above the patient has:: 1-2 risk factors - Troponin Troponin: </= normal limit - Score Heart Score - Total: 4 Discharge - Discharge Information Problems reviewed: Yes Clinical Impression/Diagnosis: Hyponatremia, Thoracic aortic aneurysm, without rupture, Chest pain - Follow up/Referral - Patient Discharge Instructions - Post Discharge Activity
[2019-11-12 18:47] LABS: OSMOLALITY,SERUM 270 mosm/kg (278-305)
[2019-11-12] MEDS ORDERED: morphine CARPU-JECT 4 MG/1 ML DISP.SYRIN IVPUSH ONE (19:40)
[2019-11-12] MEDS ORDERED: MORPHINE SULFATE 2 MG/ML VIAL ONE (19:41)
--- NOTE | 2019-11-12 19:57 | PDOC ---
*Physical Exam - Vital Signs Last Vital Signs Temp Pulse Resp BP Pulse Ox 98 F 63 22 H 148/103 H 98 11/12/19 14:52 11/12/19 17:05 11/12/19 17:05 11/12/19 17:05 11/12/19 17:34 ED Treatment Course - LABORATORY CBC & Chemistry Diagram: 11/12/19 15:47 11/12/19 15:47 - ADDITIONAL ORDERS Additional order review: Laboratory Results 11/12/19 11/12/19 15:47 15:47 PT with INR 11.60 INR 0.98 PTT (Actin FS) 20.1 L Sodium 129 L Potassium 4.6 Chloride 100 Carbon Dioxide 21 Anion Gap 7 L BUN 8.3 Creatinine 0.9 Est GFR (CKD-EPI)AfAm 117.47 Est GFR (CKD-EPI)NonAf 101.35 Random Glucose 76 Serum Osmolality 270 L Calcium 9.3 Total Bilirubin 0.2 AST 16 ALT 23 Alkaline Phosphatase 67 Troponin I < 0.02 B-Natriuretic Peptide 239.0 H Total Protein 7.0 Albumin 4.0 Lipase 95 11/12/19 15:47 RBC 3.83 L MCV 94.9 MCHC 34.0 RDW 13.5 D MPV 7.3 L Neutrophils % 37.1 L D Lymphocytes % 51.9 H D Monocytes % 4.8 Eosinophils % 5.2 H Basophils % 1.0 - Medications Given in the ED: ED Medications Discontinued Medications Generic Name Dose Route Start Last Admin Trade Name Freq PRN Reason Stop Dose Admin Acetaminophen 1,000 mg 11/12/19 17:04 11/12/19 17:30 Ofirmev Injection - IVPB 11/12/19 17:05 1,000 mg ONCE ONE Administration Morphine Sulfate 2 mg 11/12/19 19:40 11/12/19 19:48 Morphine Injection - IVPUSH 11/12/19 19:41 2 mg ONCE ONE Administration Ondansetron HCl 4 mg 11/12/19 17:04 11/12/19 17:30 Zofran Injection IVPUSH 11/12/19 17:05 4 mg ONCE ONE Administration Medical Decision Making - Medical Decision Making 11/12/19 15:42 49M w/hx HTN, HLD, ascending aortic aneurysm (4.1cm in March), hyponatremia of unknown etiology p/w three days of chest pain, weakness, abdominal pain, and sent for evaluation of hyponatremia. Roll Hand: Dr. Hernandez. 11/12/19 19:56 Signed out from night team. 11/12/19 20:29 Given 2mg morphine for pain. CBC wnl. BNP elevated at 239. Sodium 129, serum osmolarity 270. Lower extremity doppler US negative. CT chest/abd showed 4cm thoracic aortic aneurysm w/o dissection, stable compared to previous imaging. Trop negative. Hyponatremia may be 2/2 SIADH, or more likely diuretics (recently on TAYLOR inhibitors). Will get urine electrolytes. Will admit pt for further workup. Discharge - Discharge Information Problems reviewed: Yes Clinical Impression/Diagnosis: Hyponatremia, Thoracic aortic aneurysm, without rupture - Admission Yes - Follow up/Referral Referrals: Aleksandr Fagan [Primary Care Provider] - - Patient Discharge Instructions - Post Discharge Activity
[2019-11-12 20:45] LABS: URINE APPEARANCE CLEAR; URINE BILIRUBIN NEGATIVE (NEGATIVE); URINE COLOR YELLOW; URINE GLUCOSE (UA) NEGATIVE (NEGATIVE); URINE KETONE NEGATIVE (NEGATIVE); URINE LEUK ESTERASE NEGATIVE (NEGATIVE); URINE NITRITE NEGATIVE (NEGATIVE); URINE PROTEIN NEGATIVE (NEGATIVE); URINE UROBILINOGEN 0.2 mg/dL (0.2-1.0)
--- NOTE | 2019-11-12 21:46 | PN ---
Teaching Attending Note Name of Resident: Toshia Monique ATTENDING PHYSICIAN STATEMENT I saw and evaluated the patient. I reviewed the resident's note and discussed the case with the resident. I agree with the resident's findings and plan as documented. SUBJECTIVE: Patient is a 49 year old man with a PMH of NIDDM, HTN, Chronic basal ganglia infarct, Recent left 2nd metatarsal fracture, Tobacco use, Diverticulitis, Cirrhosis, Remote alcohol abuse, Asthma and Ascending aortic aneurysm sent to the ER by Dr. Porter for hyponatremia. Patient recently started following Dr. Porter for hyponatremia. At the office patients sodium was noted to be 130 (1st time), 126 (2nd time), and 124 (3rd time). Dr. Porter sent the patient for further management. The patient reports additional complaints of 3 days of intermittent chest pain/epigastric pain, shortness of breath, generalized weakness and lightheadedness. Denies any triggers for these symptoms. The patient is being worked up for a broken foot and is scheduled for a surgical revision consultation tomorrow. Patient denies abdominal pain, headache, palpitations, fever, chills, nausea, vomiting, diarrhea, constipation, dysuria, frequency, urgency, melena, hematochezia or hematuria. Unemployed. Former heavy. Reports he quit smoking and drinking in July 2019. Denies alcohol, tobacco or illicit drug use. No sick contacts or recent travels. Family history is unremarkable. OBJECTIVE: Alert Vital Signs Period Temp Pulse Resp BP Sys/Lopez Pulse Ox Last 24 Hr 98 F 60-71 18-22 145-156/72-103 98-100 HEENT: No Jaundice, eye redness or discharge, PERRLA, EOMI. Normocephalic, atraumatic. External ears are normal and hearing is grossly intact. No nasal discharge. Neck: Supple, nontender. No palpable adenopathy or thyromegaly. No JVD Chest: Good effort. Reproducible chest tenderness; Clear to auscultation and percussion. Heart: Regular. No S3, rub or murmur Abdomen: Not distended, soft, nontender and no HSM. No rebound or guarding. Normal bowel sounds. Ext: Peripheral pulses intact. No leg edema. Skin: Warm and dry. No petechiae, rash or ecchymosis. Neuro: Alert. Oriented x3. CN 2-12 grossly intact. Sensation grossly intact in all four extremities and DTR are symmetric. Psych: Appropriate mood and affect. Good insight. Home Medications Medication Instructions Recorded Gabapentin 600 mg PO TID 08/18/19 Metoprolol Succinate [Toprol XL -] 25 mg PO DAILY tab.sr.24h 08/22/19 Cholecalciferol (Vitamin D3) 10,000 unit PO DAILY 08/24/19 [Vitamin D3] Esomeprazole Magnesium [Nexium 20 mg PO DAILY 08/24/19 24Hr] Multivitamin/Iron/Folic Acid 1 each PO DAILY 08/24/19 [Centrum Adults Tablet] Tizanidine HCl 8 mg PO TID 08/24/19 Hydroxyzine HCl 25 mg PO DAILY 11/08/19 Lisinopril 20 mg PO DAILY 11/12/19 Ondansetron HCl [Zofran] 4 mg PO TID 11/12/19 Zolpidem Tartrate [Ambien] 10 mg PO HS 11/12/19 Abnormal Lab Results 11/12/19 11/12/19 11/12/19 15:47 15:47 15:47 RBC 3.83 L MPV 7.3 L Neutrophils % 37.1 L D Lymphocytes % 51.9 H D Eosinophils % 5.2 H PTT (Actin FS) 20.1 L Sodium 129 L Anion Gap 7 L Serum Osmolality 270 L B-Natriuretic Peptide 239.0 H Urine Osmolality Ur Random Creatinine 11/12/19 20:02 RBC MPV Neutrophils % Lymphocytes % Eosinophils % PTT (Actin FS) Sodium Anion Gap Serum Osmolality B-Natriuretic Peptide Urine Osmolality 198 L Ur Random Creatinine 15.0 L Current Medications Generic Name Dose Route Start Last Admin Trade Name Kaiq PRN Reason Stop Dose Admin Acetaminophen 1,000 mg 11/13/19 04:30 Ofirmev Injection - IVPB Q6H PRN PAIN LEVEL 4 - 6 Enoxaparin Sodium 40 mg 11/13/19 10:00 Lovenox - SQ DAILY NU Insulin Aspart 1 vial 11/13/19 07:00 Novolog Vial Sliding Scale - SQ ACHS NU Protocol ASSESSMENT AND PLAN: 1. Hyponatremia/Chest pain - Etiology unclear of hyponatremia unclear. May be partly due to SIADH caused by pain/lung lesions. Lower extremity doppler US is negative. CTA chest/abdomen/pelvis showed patchy airspace opacities and pulmonary nodules; 4 cm thoracic aortic aneurysm without dissection was stable compared to previous imaging. The air space opacities and pulmonary nodules were evident in a chest CT from August, - but he has tested negative thrice for COVID-19 since then. Also noted to have gynaecomastia. CXR shows cardiomegaly with no evidence of acute lung disease. Viral testing for COVID-19 ordered and patient placed on airborne, droplet and contact isolation. ER staff prescribed Tylenol, Zofran and IV Morphine for the patient. EKG shows NSR at 63/minute and QTc 446 with no significant acute ischemic ST-T wave changes. Initial troponin is negative. Will get ABG, admit to telemetry, trend troponin, repeat EKG, get ECHO, fasting lipids, TSH, urine toxicology, COVID-19 antibody test, continue to limit free water intake, monitor serum sodium q 6 hours, control pain and consult Nephrology/Cardiology and also Pulmonary for possible bronchoscopy. Will continue comprehensive care for all of patients comorbid conditions. 2. DM For now, we will hold the home diabetes drugs and implement sliding scale insulin regimen. Provide comprehensive diabetes care with patient teaching and counseling about the importance of adherence to prescribed diabetes regimen, euglycemia, eye care and foot care. 3. Tobacco Use Counseled on risks associated with tobacco use. We will provide patient all the necessary assistance to facilitate smoking cessation and prescribe Nicotine patch. 4. Hypertension Will restart suitable outpatient antihypertensive drugs when clinically appropriate. Subsequently, will revise regimen to ensure [id number] excellent BP control. Patient counseled on the injurious effects of uncontrolled hypertension. Nonpharmacologic measures to control hypertension like weight loss, salt restriction and exercise stressed. Importance of adherence to treatment regimen and attainment of normotension emphasized. 5. DVT prophylaxis - Lovenox 40 mg SQ q 24 hours. 6. Advance directives - Full code
[2019-11-12] MEDS ORDERED: ACETAMINOPHEN 500 MG TABLET (FP) PO ONE (22:31)
--- NOTE | 2019-11-13 00:32 | HP ---
CHIEF COMPLAINT: chest pain PCP: Aleksandr Dunham HISTORY OF PRESENT ILLNESS: Mr. Gamble is a 49 year old man with PMH hypertension, ascending aortic aneurysm, GERD, anxiety, diabetes, herniated discs, presenting with a 3 day history of on & off crushing chest pain. On Wednesday, he was also advised by nephrology to seek care in the ED due to labs showing hyponatremia, but he did not present until today. Patient reports that on Wednesday he saw his PCP, trying to get clearance for foot surgery (broke L foot after 'blacking out' in the middle of the night in July -- patient offers no more information to the event). PCP ordered labs, he was found to be hyponatremic, and PCP sent him to nephrology and to get a chest CT. He saw the special education kindergarten teacher on , who did labs and again found him to be hyponatremic, and recommended he seek care in the ED. Patient did not want to go to the ED initially, but then developed chest pain Wednesday evening that has continued on and off through this evening. Pain is described as 'crushing' 1010 without radiation. Unaffected by movement, and has not taken any medication for relief. The past 3 days he has also experienced dyspnea, weakness, lightheadedness, increased thirst, increased frequency of urination. He also vomited last night. Denies hematuria, melena, hematochezia. Of note he has had several admissions since July. He was admitted at [facility] in mid July (07/29 through 11/04/19) due to lethargy, chest pain, and possible viral pneumonitis, and was intubated. Then on 08/18/19 presented to [facility] with septic shock, KERLINE, stayed in ICU briefly, discharged 4 days later. ER course this evening was notable for: (1) CTA abdomen pelvis: patchy airspace opacities in lower lobes, 1 cm nodule in the L base, 0.9 cm nodule R base, R inguinal hernia (2) Negative troponin (3) Received morphine, Zofran PAST MEDICAL HISTORY: Diabetes Hypertension Ascending aortic aneurysm 6 herniated discs GERD Anxiety Diverticulitis PAST SURGICAL HISTORY: Lower back surgery 8 years ago Left foot surgery August 2019 Social History: Smoking: Previous smoker - quit in July - was smoking pack/day Alcohol: Previously drinking 6 pack beer per day - quit in July Drugs: Denies Allergies No Known Allergies Allergy (Verified 11/12/19 14:54) HOME MEDICATIONS: Home Medications Medication Instructions Recorded Gabapentin 600 mg PO TID 08/18/19 Metoprolol Succinate [Toprol XL -] 25 mg PO DAILY tab.sr.24h 08/22/19 Cholecalciferol (Vitamin D3) 10,000 unit PO DAILY 08/24/19 [Vitamin D3] Esomeprazole Magnesium [Nexium 20 mg PO DAILY 08/24/19 24Hr] Multivitamin/Iron/Folic Acid 1 each PO DAILY 08/24/19 [Centrum Adults Tablet] Tizanidine HCl 8 mg PO TID 08/24/19 Hydroxyzine HCl 25 mg PO DAILY 11/08/19 Lisinopril 20 mg PO DAILY 11/12/19 Ondansetron HCl [Zofran] 4 mg PO TID 11/12/19 Zolpidem Tartrate [Ambien] 10 mg PO HS 11/12/19 REVIEW OF SYSTEMS See HPI PHYSICAL EXAMINATION Vital Signs - 24 hr 11/12/19 11/12/19 11/12/19 14:52 17:05 17:34 Temperature 98 F Pulse Rate 71 Pulse Rate [ 63 Apical] Respiratory 18 22 H Rate Blood Pressure 152/72 Blood Pressure 148/103 H [Right Arm] O2 Sat by Pulse 99 100 98 Oximetry (%) 11/12/19 11/12/19 18:10 20:05 Temperature Pulse Rate Pulse Rate [ 60 69 Apical] Respiratory 22 H Rate Blood Pressure Blood Pressure 156/96 145/96 [Right Arm] O2 Sat by Pulse 100 99 Oximetry (%) GENERAL: Awake, alert, and fully oriented. Patient with eyes closed and moaning in distress. HEAD: Normal with no signs of trauma. EYES: Pupils equal, round and reactive to light. Sclera anicteric, conjunctiva clear. EARS, NOSE, THROAT: Ears normal, nares patent, oropharynx clear. Moist mucous membranes. NECK: Normal range of motion, supple without lymphadenopathy. LUNGS: Tachypneic using accessory muscles of resp, lungs CTAB, no wheezes, and no crackles. HEART: Regular rate and rhythm, normal S1 and S2 without murmur. Pain reproducible upon palpation of sternum ABDOMEN: Soft, diffuse tenderness to palpation, R sided CVA tenderness. MUSCULOSKELETAL: Normal range of motion at all joints. No bony deformities or tenderness. No CVA tenderness. LOWER EXTREMITIES: 2+ pulses, warm, well-perfused. No calf tenderness. No peripheral edema. PSYCHIATRIC: Cooperative. Good eye contact. Appropriate mood and affect. Laboratory Results - last 24 hr 11/12/19 11/12/19 11/12/19 15:47 15:47 15:47 WBC 6.2 RBC 3.83 L Hgb 12.4 Hct 36.3 MCV 94.9 MCH 32.3 MCHC 34.0 RDW 13.5 D Plt Count 294 MPV 7.3 L Absolute Neuts (auto) 2.3 Neutrophils % 37.1 L D Lymphocytes % 51.9 H D Monocytes % 4.8 Eosinophils % 5.2 H Basophils % 1.0 Nucleated RBC % 0 Platelet Estimate Adequate Platelet Comment No clotting detected PT with INR 11.60 INR 0.98 PTT (Actin FS) 20.1 L Sodium 129 L Potassium 4.6 Chloride 100 Carbon Dioxide 21 Anion Gap 7 L BUN 8.3 Creatinine 0.9 Est GFR (CKD-EPI)AfAm 117.47 Est GFR (CKD-EPI)NonAf 101.35 Random Glucose 76 Serum Osmolality 270 L Calcium 9.3 Total Bilirubin 0.2 AST 16 ALT 23 Alkaline Phosphatase 67 Troponin I < 0.02 B-Natriuretic Peptide 239.0 H Total Protein 7.0 Albumin 4.0 Lipase 95 Urine Color Urine Appearance Urine pH Ur Specific [place] Urine Protein Urine Glucose (UA) Urine Ketones Urine Blood Urine Nitrite Urine Bilirubin Urine Urobilinogen Ur Leukocyte Esterase Urine Osmolality Ur Random Creatinine Ur Random Sodium 11/12/19 11/12/19 11/12/19 20:02 20:02 20:46 WBC RBC Hgb Hct MCV MCH MCHC RDW Plt Count MPV Absolute Neuts (auto) Neutrophils % Lymphocytes % Monocytes % Eosinophils % Basophils % Nucleated RBC % Platelet Estimate Platelet Comment PT with INR INR PTT (Actin FS) Sodium Potassium Chloride Carbon Dioxide Anion Gap BUN Creatinine Est GFR (CKD-EPI)AfAm Est GFR (CKD-EPI)NonAf Random Glucose Serum Osmolality Calcium Total Bilirubin AST ALT Alkaline Phosphatase Troponin I < 0.02 B-Natriuretic Peptide Total Protein Albumin Lipase Urine Color Yellow Urine Appearance Clear Urine pH 7.0 D Ur Specific [place] 1.015 Urine Protein Negative Urine Glucose (UA) Negative Urine Ketones Negative Urine Blood Negative Urine Nitrite Negative Urine Bilirubin Negative Urine Urobilinogen 0.2 Ur Leukocyte Esterase Negative Urine Osmolality 198 L Ur Random Creatinine 15.0 L Ur Random Sodium 50 ASSESSMENT/PLAN: Mr. Gamble is a 49 year old man with PMH hypertension, ascending aortic aneurysm, GERD, anxiety, diabetes, herniated discs, hyponatremia detected on outpatient labs last week, presenting with a 3 day history of on & off crushing chest pain with negative EKG, troponin, and labs significant for hypotonic hyponatremia. #Chest Pain - EKG revealing NS rhythm: rate 81 - Troponins negative X3 - CTA with patchy airspace opacities in b/l lower lobes; 1 cm nodules at base of R and L lung base - Cardiology consulted - Likely musculoskeletal (pain reproducible) vs. less likely ischemic cardiac pain - ECHO ordered (CXR with signs of cardiomegaly; r/o CHF, valvular disease) - Repeat EKG in am - Pending Covid testing, antibodies - Awaiting Utox (pt with recent admissions for AMS of unknown etiology) #Lung lesion - CTA with patchy airspace opacities in b/l lower lobes; 1 cm nodules at base of R and L lung base - Pulmonary consulted - Consider obtaining lung tissue -- bronchoscopy vs. IR guided biopsy # Hypotonic Hyponatremia - Sodium 129; serum Osm 270; urine Osm 198; urine sodium 50 - Decided against giving Lasix because nurse later informs us 3 L had already been documented - Restrict free water intake to 1L/day - Nephrology consult - F/U magnesium , phosphorus #NIDDM - Insulin sliding scale during admission - BGM DVT prophylaxis: Lovenox 40 sq FEN -f/u CBC, BMP, mag, phos -NPO given unclear mental status Dispo: tele Family Medical History Family History: As Documented Visit type - Emergency Visit Emergency Visit: Yes ED Registration Date: 11/12/19 Care time: The patient presented to the Emergency Department on the above date and was hospitalized for further evaluation of their emergent condition. - New Patient This patient is new to me today: Yes Date on this admission: 11/13/19 - Critical Care Critical Care patient: No ATTENDING PHYSICIAN STATEMENT I saw and evaluated the patient. I reviewed the resident's note and discussed the case with the resident. I agree with the resident's findings and plan as documented. SUBJECTIVE: OBJECTIVE: ASSESSMENT AND PLAN:
[2019-11-13] MEDS ORDERED: FUROSEMIDE 40 MG/4 ML INJECTABLE VIAL IVPUSH ONE (01:47)
[2019-11-13] MEDS ORDERED: MORPHINE SULFATE 2 MG/ML VIAL IVPUSH ONE (02:07)
[2019-11-13 03:13] LABS: ARTERIAL BLD GAS O2 SATURATION 97.6 mmHg (95-98); ARTERIAL BLOOD GAS BASE EXCESS -5.5 mmol/L (-2-2); ARTERIAL BLOOD GAS PO2 99.4 mmHg (80-100); ARTERIAL BLOOD GAS pH 7.393 (7.350-7.450)
[2019-11-13 03:15] LABS: ALLENS TEST POSITIVE
[2019-11-13 03:17] LABS: ANION GAP 10 MMOL/L (8-16); CALCIUM 9.6 mg/dL (8.5-10.1); CHLORIDE 105 mmol/L (98-107); CO2 21 mmol/L (21-32); CREATININE 0.8 mg/dL (0.55-1.3); GLUCOSE,RANDOM 95 mg/dL (74-106); POTASSIUM 4.1 mmol/L (3.5-5.1); SODIUM 136 mmol/L (136-145)
[2019-11-13] MEDS ORDERED: ACETAMINOPHEN 1000 MG/100 ML VIAL (NON FORMULARY) IVPB PRN (04:30)
[2019-11-13] MEDS ORDERED: MORPHINE SULFATE 2 MG/ML VIAL ONE (06:08)
[2019-11-13 06:22] VITALS: BP 153/80; PULSE 62; TEMP 98.2
[2019-11-13 06:24] LABS: COCAINE, UR NEGATIVE ng/ml (CUTOFF=300); METHADONE, UR NEGATIVE ng/ml (CUTOFF=300); PHENCYCLIDINE,URINE NEGATIVE ng/ml (CUTOFF=25); URINE AMPHETAMINES NEGATIVE ng/ml (CUTOFF=500); URINE BARBITURATES NEGATIVE ng/ml (CUTOFF=200); URINE BENZODIAZEPINES NEGATIVE ng/ml (CUTOFF=200)
[2019-11-13 06:25] LABS: OPIATES, URI POSITIVE ng/ml (CUTOFF=300)
[2019-11-13 06:30] LABS: HEMATOCRIT 38.9 % (35.4-49); HEMOGLOBIN 13.3 GM/dL (11.7-16.9); LYMPH % 31.6 % (8-40); MCH 31.9 pg (25.7-33.7); MCHC 34.1 g/dl (32.0-35.9); MEAN CELL VOLUME 93.4 fl (80-96); MEAN PLT VOLUME 6.7 fl (7.5-11.1); MONO % 5.2 % (3.8-10.2); NEUT % 58.2 % (42.8-82.8); PLATELET COUNT 338 K/MM3 (134-434); RBC 4.17 M/mm3 (4.00-5.60); RDW 13.2 % (11.9-15.9); WHITE BLOOD COUNT 8.7 K/mm3 (4.0-10.0)
[2019-11-13 07:07] LABS: ALBUMIN 4.4 g/dl (3.4-5.0); BILIRUBIN,TOTAL 0.3 mg/dL (0.2-1); BLOOD UREA NITROGEN 10.4 mg/dL (7-18); CALCIUM 9.6 mg/dL (8.5-10.1); CREATININE 0.7 mg/dL (0.55-1.3); MAGNESIUM 1.9 mg/dL (1.8-2.4); POTASSIUM 4.5 mmol/L (3.5-5.1); TOT PROT 7.6 g/dl (6.4-8.2)
[2019-11-13] MEDS: INSULIN SLIDING SCALE (NOVOLOG) 1 VIAL SQ SCH ×3 (07:09→17:19)
[2019-11-13] MEDS ORDERED: REGADENOSON 0.4 MG/5 ML PRE-FILLED SYRINGE IVPUSH ONE ×2 (09:00→10:49)
--- NOTE | 2019-11-13 09:40 | CON.CARD ---
Consult Consult Specialty:: Cardiology Referred by:: Hospitalist Service Reason for Consultation:: Cardiac evaluation - History of Present Illness Chief Complaint: Chest pain History of Present Illness: Patient is a 49 year old male with underlying history of HTN, ascending thoracic aortic aneurysm, GERD, Diabetes Mellitus and degenerative lumbosacral disc disease who presented with on and off mid sternal chest discomfort. He describes it as stabbing like pain with no radiation. He was sent in by the crop research scientist for hyponatemia. He also complained of dyspnea, weakness and lightheadedness. Echocardiography was done today and currently awaits nuclear (pharmacologic) stress test. He denies fever or chills. He denies nausea, vomiting, diarrhea or abdominal pain. He denies headache. Prior record indicate hospitalization at [facility] in July due to lethargy, chest pain and respiratory failure requiting mechanical ventilation. He also had history of septic shock and KERLINE on prior admission to [facility]. - History Source History Provided By: Patient, Medical Record Limitations to Obtaining History: Clinical Condition - Past Medical History Cardio/Vascular: Yes: Aneurysm (Ascending aortic), HTN Pulmonary: Yes: Pneumonia Gastrointestinal: Yes: Other (Diverticular disease) Endocrine: Yes: Diabetes Mellitus - Past Surgical History Additional Surgical History: Left foot surgery, back (disc) surgery - Alcohol/Substance Use Hx Alcohol Use: Yes (previously) - Smoking History Smoking history: Former smoker Have you smoked in the past 12 months: Yes Aproximately how many cigarettes per day: 20 If you are a former smoker, when did you quit?: july - Social History Usual Living Arrangement: With Spouse Home Medications - Allergies Allergies/Adverse Reactions: Allergies Allergy/AdvReac Type Severity Reaction Status Date / Time No Known Allergies Allergy Verified 11/12/19 14:54 - Home Medications Home Medications: Ambulatory Orders Gabapentin 600 mg PO TID 08/18/19 Metoprolol Succinate [Toprol XL -] 25 mg PO DAILY tab.sr.24h 08/22/19 Cholecalciferol (Vitamin D3) [Vitamin D3] 10,000 unit PO DAILY 08/24/19 Esomeprazole Magnesium [Nexium 24Hr] 20 mg PO DAILY 08/24/19 Multivitamin/Iron/Folic Acid [Centrum Adults Tablet] 1 each PO DAILY 08/24/19 Tizanidine HCl 8 mg PO TID 08/24/19 Hydroxyzine HCl 25 mg PO DAILY 11/08/19 Lisinopril 20 mg PO DAILY 11/12/19 Ondansetron HCl [Zofran] 4 mg PO TID 11/12/19 Zolpidem Tartrate [Ambien] 10 mg PO HS 11/12/19 Review of Systems - Review of Systems Constitutional: denies: Chills, Fever Cardiovascular: reports: Chest Pain, Shortness of Breath. denies: Palpitations Respiratory: reports: SOB. denies: Cough, Hemoptysis, Orthopnea, PND Gastrointestinal: denies: Abdominal Pain, Constipation, Diarrhea, Melena, Nausea, Rectal Bleeding, Vomiting Musculoskeletal: reports: Back Pain. denies: Joint Pain Neurological: reports: Dizziness. denies: Headache, Seizure, Syncope Vital Signs: Vital Signs Temperature 98.2 F 11/13/19 06:20 Pulse Rate 62 11/13/19 06:20 Respiratory Rate 11/13/19 06:20 Blood Pressure 153/80 11/13/19 06:20 O2 Sat by Pulse Oximetry (%) 98 11/13/19 06:20 HENT: Yes: Atraumatic Neck: Yes: Supple Respiratory: Yes: Diminished Gastrointestinal: Yes: Normal Bowel Sounds, Soft. No: Tenderness Cardiovascular: Yes: Regular Rate and Rhythm JVD: No PMI: Non-Displaced Heart Sounds: Yes: S1, S2. No: Gallop Edema: No - Other Data Labs, Other Data: CBC, BMP 11/13/19 06:15 11/13/19 06:15 INR, PTT INR 0.98 (0.83-1.09) 11/12/19 15:47 Troponin, BNP 11/12/19 11/12/19 11/13/19 15:47 20:46 01:53 Troponin I < 0.02 < 0.02 < 0.02 B-Natriuretic Peptide 239.0 H Normal sinus rhythm with normal ECG Echo: Report Reviewed Imaging - Results Chest X-ray: Report Reviewed Cat Scan: Report Reviewed (Chest CT noted: Pulmonary nodules) EKG: Report Reviewed Problem List - Problems (1) Chest pain Code(s): R07.9 - CHEST PAIN, UNSPECIFIED (2) Hyponatremia Code(s): E87.1 - HYPO-OSMOLALITY AND HYPONATREMIA (3) Thoracic aortic aneurysm, without rupture Code(s): I71.2 - THORACIC AORTIC ANEURYSM, WITHOUT RUPTURE (4) Altered mental status Code(s): R41.82 - ALTERED MENTAL STATUS, UNSPECIFIED Qualifiers: Altered mental status type: unspecified Qualified Code(s): R41.82 - Altered mental status, unspecified Assessment/Plan 1. Chest pain syndrome 2. HTN 3. DM 4. Generalized weakness ? etiology 5. History of dilated ascending thoracic aorta PLAN: 1. Echocardiography reviewed 2. Pharmacologic nuclear MPI pending 3. Resume Metoprolol Succinate 25 mg QD and Lisinopril 20 mg QD as tolerated 4. Correct NA 5. Monitor mental status Further plans are to follow Benoit Dos Santos MD
[2019-11-13] MEDS ORDERED: ENOXAPARIN NA (PORCINE) 40 MG/0.4 ML DISP.SYRIN SQ SCH (10:00)
--- NOTE | 2019-11-13 10:03 | ECHO ---
Version: 1 Name: NATALI ARAUJO Exam: Adult Echocardiogram Study Date: 11/13/2019, 8:35 AM Age: 49 Years MMode/2D Measurements & Calculations IVSd: 1.03 cm LVIDs: 2.49 cm LVIDd: 4.4 cm LVPWd: 0.90 cm LAV (MOD-bp): 35.2 ml LVOT diam: 2.00 cm Ao root diam: 3.2 cm LA dimension: 2.9 cm Doppler Measurements & Calculations MV E max jonathon: 50.8 cm/sec Med E/e': 7.2 MV A max jonathon: 65.5 cm/sec Med Peak E' Jonathon: 7.1 cm/sec MV E/A: 0.78 Lat E/e': 7.1 Lat Peak E' Jonathon: 7.2 cm/sec Ao max P.9 mmHg Ao V2 max: 110.3 cm/sec AI P1/2t: 998.8 msec Procedure A complete two-dimensional transthoracic echocardiogram was performed (2D, M-mode, Doppler and color flow Doppler). Technically limited study. Left Ventricle The left ventricle is normal in size. Left ventricular systolic function is normal. Ejection Fractio n = 60- 65%. No regional wall motion abnormalities noted. Right Ventricle The right ventricle is not well visualized. Atria The left atrial size is normal. Right atrial size is normal. Mitral Valve The mitral valve leaflets appear normal. There is no evidence of stenosis, fluttering, or prolapse. There is no mitral regurgitation noted. Tricuspid Valve The tricuspid valve is not well visualized. Aortic Valve The aortic valve is normal in structure and function. Mild aortic regurgitation. Pulmonic Valve The pulmonic valve is not well visualized. Great Vessels The aortic root is normal size. Pericardium/Pleura There is no pericardial effusion. Summary Statements The left ventricle is normal in size. Left ventricular systolic function is normal. No regional wall motion abnormalities noted. Ejection Fraction = 60-65%. Mild aortic regurgitation. There is no pericardial effusion. Benoit Dos Santos MD 11/13/2019, 10:02 AM Ordering Physician: Toshia Monique Referring Physician: TOSHIA MONIQUE Performed By: Candida Cabrera
[2019-11-13] MEDS ORDERED: ENOXAPARIN NA (PORCINE) 40 MG/0.4 ML DISP.SYRIN SQ ONE (11:33)
--- NOTE | 2019-11-13 11:50 | EKG ---
Test Reason : Blood Pressure : / mmHG Vent. Rate : 081 BPM Atrial Rate : 081 BPM P-R Int : 168 ms QRS Dur : 074 ms QT Int : 408 ms P-R-T Axes : 039 038 038 degrees QTc Int : 473 ms NORMAL SINUS RHYTHM NORMAL ECG WHEN COMPARED WITH ECG OF 12-NOV-2019 15:14, NO SIGNIFICANT CHANGE WAS FOUND Confirmed by MARY GRACE ORTEGA MD ([id number]) on 11/13/2019 11:50:15 AM Referred By: Confirmed By:MARY GRACE ORTEGA MD
--- NOTE | 2019-11-13 12:48 | PN ---
Teaching Attending Note Name of Resident: Perfecto Villareal ATTENDING PHYSICIAN STATEMENT I saw and evaluated the patient. I reviewed the resident's note and discussed the case with the resident. I agree with the resident's findings and plan as documented. SUBJECTIVE: Complains of lower back and generalized pain. No fever/chills/cough/sputum. OBJECTIVE: Afebrile, Hemodynamically Stable. Last Vital Signs Temp Pulse Resp BP Pulse Ox 98.2 F 62 20 153/80 98 11/13/19 06:20 11/13/19 06:20 11/13/19 06:20 11/13/19 06:20 11/13/19 06:20 HEENT - Atraumatic, Normocephalic. Heart - S1, S2, RRR Lungs - clear to auscultation Abdomen - Soft, non-tender. Bowel Sounds normal. Extremities - No calf tenderness. L foot surgical scar intact, no infection, Tender+ Neuro - AAO x 3. Tone/Power normal, limited LLE exam due to foot discomfort MS - no paraspinal tenderness. Laboratory Results - last 24 hr 11/12/19 11/12/19 11/12/19 15:47 15:47 15:47 WBC 6.2 RBC 3.83 L Hgb 12.4 Hct 36.3 MCV 94.9 MCH 32.3 MCHC 34.0 RDW 13.5 D Plt Count 294 MPV 7.3 L Absolute Neuts (auto) 2.3 Neutrophils % 37.1 L D Lymphocytes % 51.9 H D Monocytes % 4.8 Eosinophils % 5.2 H Basophils % 1.0 Nucleated RBC % 0 Platelet Estimate Adequate Platelet Comment No clotting detected PT with INR 11.60 INR 0.98 PTT (Actin FS) 20.1 L Anticoagulation Therapy Puncture Site Patient Temperature ABG pH ABG pCO2 ABG pO2 ABG HCO3 ABG O2 Sat (Measured) ABG O2 Content ABG Base Excess Goran Test Patient On Oxygen O2 Delivery Device Oxygen Flow Rate Vent Mode Vent Rate Mechanical Rate PEEP Pressure Support Vent Sodium 129 L Potassium 4.6 Chloride 100 Carbon Dioxide 21 Anion Gap 7 L BUN 8.3 Creatinine 0.9 Est GFR (CKD-EPI)AfAm 117.47 Est GFR (CKD-EPI)NonAf 101.35 POC Glucometer Random Glucose 76 Hemoglobin A1c % Serum Osmolality 270 L Calcium 9.3 Magnesium Total Bilirubin 0.2 AST 16 ALT 23 Alkaline Phosphatase 67 Troponin I < 0.02 B-Natriuretic Peptide 239.0 H Total Protein 7.0 Albumin 4.0 Lipase 95 Urine Color Urine Appearance Urine pH Ur Specific [place] Urine Protein Urine Glucose (UA) Urine Ketones Urine Blood Urine Nitrite Urine Bilirubin Urine Urobilinogen Ur Leukocyte Esterase Urine Osmolality Ur Random Creatinine Ur Random Sodium Opiates Screen Methadone Screen Barbiturate Screen Phencyclidine Screen Ur Amphetamines Screen MDMA (Ecstasy) Screen Benzodiazepines Screen Cocaine Screen U Marijuana (THC) Screen COVID-19 (CARLENE) 11/12/19 11/12/19 11/12/19 19:40 20:02 20:02 WBC RBC Hgb Hct MCV MCH MCHC RDW Plt Count MPV Absolute Neuts (auto) Neutrophils % Lymphocytes % Monocytes % Eosinophils % Basophils % Nucleated RBC % Platelet Estimate Platelet Comment PT with INR INR PTT (Actin FS) Anticoagulation Therapy Puncture Site Patient Temperature ABG pH ABG pCO2 ABG pO2 ABG HCO3 ABG O2 Sat (Measured) ABG O2 Content ABG Base Excess Goran Test Patient On Oxygen O2 Delivery Device Oxygen Flow Rate Vent Mode Vent Rate Mechanical Rate PEEP Pressure Support Vent Sodium Potassium Chloride Carbon Dioxide Anion Gap BUN Creatinine Est GFR (CKD-EPI)AfAm Est GFR (CKD-EPI)NonAf POC Glucometer Random Glucose Hemoglobin A1c % Serum Osmolality Calcium Magnesium Total Bilirubin AST ALT Alkaline Phosphatase Troponin I B-Natriuretic Peptide Total Protein Albumin Lipase Urine Color Yellow Urine Appearance Clear Urine pH 7.0 D Ur Specific [place] 1.015 Urine Protein Negative Urine Glucose (UA) Negative Urine Ketones Negative Urine Blood Negative Urine Nitrite Negative Urine Bilirubin Negative Urine Urobilinogen 0.2 Ur Leukocyte Esterase Negative Urine Osmolality 198 L Ur Random Creatinine 15.0 L Ur Random Sodium 50 Opiates Screen Methadone Screen Barbiturate Screen Phencyclidine Screen Ur Amphetamines Screen MDMA (Ecstasy) Screen Benzodiazepines Screen Cocaine Screen U Marijuana (THC) Screen COVID-19 (CARLENE) Not detected 11/12/19 11/13/19 11/13/19 20:46 01:53 03:02 WBC RBC Hgb Hct MCV MCH MCHC RDW Plt Count MPV Absolute Neuts (auto) Neutrophils % Lymphocytes % Monocytes % Eosinophils % Basophils % Nucleated RBC % Platelet Estimate Platelet Comment PT with INR INR PTT (Actin FS) Anticoagulation Therapy No Result Required. Puncture Site Left radial Patient Temperature No Result Required. ABG pH 7.393 ABG pCO2 30.50 L ABG pO2 99.4 ABG HCO3 18.2 L ABG O2 Sat (Measured) 97.6 ABG O2 Content No Result Required. ABG Base Excess -5.5 L Goran Test Positive Patient On Oxygen No O2 Delivery Device Room air Oxygen Flow Rate Room air Vent Mode No Result Required. Vent Rate No Result Required. Mechanical Rate No Result Required. PEEP No Result Required. Pressure Support Vent No Result Required. Sodium 136 Potassium 4.1 Chloride 105 Carbon Dioxide 21 Anion Gap 10 BUN 8.0 Creatinine 0.8 Est GFR (CKD-EPI)AfAm 123.29 Est GFR (CKD-EPI)NonAf 106.38 POC Glucometer Random Glucose 95 Hemoglobin A1c % Serum Osmolality Calcium 9.6 Magnesium Total Bilirubin AST ALT Alkaline Phosphatase Troponin I < 0.02 < 0.02 B-Natriuretic Peptide Total Protein Albumin Lipase Urine Color Urine Appearance Urine pH Ur Specific [place] Urine Protein Urine Glucose (UA) Urine Ketones Urine Blood Urine Nitrite Urine Bilirubin Urine Urobilinogen Ur Leukocyte Esterase Urine Osmolality Ur Random Creatinine Ur Random Sodium Opiates Screen Methadone Screen Barbiturate Screen Phencyclidine Screen Ur Amphetamines Screen MDMA (Ecstasy) Screen Benzodiazepines Screen Cocaine Screen U Marijuana (THC) Screen COVID-19 (CARLENE) 11/13/19 11/13/19 11/13/19 04:50 06:15 06:15 WBC 8.7 RBC 4.17 Hgb 13.3 Hct 38.9 MCV 93.4 MCH 31.9 MCHC 34.1 RDW 13.2 Plt Count 338 MPV 6.7 L Absolute Neuts (auto) 5.1 Neutrophils % 58.2 D Lymphocytes % 31.6 D Monocytes % 5.2 Eosinophils % 4.0 Basophils % 1.0 Nucleated RBC % 0 Platelet Estimate Platelet Comment PT with INR INR PTT (Actin FS) Anticoagulation Therapy Puncture Site Patient Temperature ABG pH ABG pCO2 ABG pO2 ABG HCO3 ABG O2 Sat (Measured) ABG O2 Content ABG Base Excess Goran Test Patient On Oxygen O2 Delivery Device Oxygen Flow Rate Vent Mode Vent Rate Mechanical Rate PEEP Pressure Support Vent Sodium 135 L Potassium 4.5 Chloride 104 Carbon Dioxide 24 Anion Gap 7 L BUN 10.4 Creatinine 0.7 Est GFR (CKD-EPI)AfAm 130.25 Est GFR (CKD-EPI)NonAf 112.38 POC Glucometer Random Glucose 92 Hemoglobin A1c % Serum Osmolality Calcium 9.6 Magnesium 1.9 Total Bilirubin 0.3 AST 14 L ALT 24 Alkaline Phosphatase 72 Troponin I B-Natriuretic Peptide Total Protein 7.6 Albumin 4.4 Lipase Urine Color Urine Appearance Urine pH Ur Specific [place] Urine Protein Urine Glucose (UA) Urine Ketones Urine Blood Urine Nitrite Urine Bilirubin Urine Urobilinogen Ur Leukocyte Esterase Urine Osmolality Ur Random Creatinine Ur Random Sodium Opiates Screen Positive A* Methadone Screen Negative Barbiturate Screen Negative Phencyclidine Screen Negative Ur Amphetamines Screen Negative MDMA (Ecstasy) Screen Negative Benzodiazepines Screen Negative Cocaine Screen Negative U Marijuana (THC) Screen Negative COVID-19 (CARLENE) 11/13/19 11/13/19 06:15 07:03 WBC RBC Hgb Hct MCV MCH MCHC RDW Plt Count MPV Absolute Neuts (auto) Neutrophils % Lymphocytes % Monocytes % Eosinophils % Basophils % Nucleated RBC % Platelet Estimate Platelet Comment PT with INR INR PTT (Actin FS) Anticoagulation Therapy Puncture Site Patient Temperature ABG pH ABG pCO2 ABG pO2 ABG HCO3 ABG O2 Sat (Measured) ABG O2 Content ABG Base Excess Goran Test Patient On Oxygen O2 Delivery Device Oxygen Flow Rate Vent Mode Vent Rate Mechanical Rate PEEP Pressure Support Vent Sodium Potassium Chloride Carbon Dioxide Anion Gap BUN Creatinine Est GFR (CKD-EPI)AfAm Est GFR (CKD-EPI)NonAf POC Glucometer 93 Random Glucose Hemoglobin A1c % 5.2 Serum Osmolality Calcium Magnesium Total Bilirubin AST ALT Alkaline Phosphatase Troponin I B-Natriuretic Peptide Total Protein Albumin Lipase Urine Color Urine Appearance Urine pH Ur Specific [place] Urine Protein Urine Glucose (UA) Urine Ketones Urine Blood Urine Nitrite Urine Bilirubin Urine Urobilinogen Ur Leukocyte Esterase Urine Osmolality Ur Random Creatinine Ur Random Sodium Opiates Screen Methadone Screen Barbiturate Screen Phencyclidine Screen Ur Amphetamines Screen MDMA (Ecstasy) Screen Benzodiazepines Screen Cocaine Screen U Marijuana (THC) Screen COVID-19 (CARLENE) Current Medications Generic Name Dose Route Start Last Admin Trade Name Freq PRN Reason Stop Dose Admin Acetaminophen 1,000 mg 11/13/19 04:30 Ofirmev Injection - IVPB Q6H PRN PAIN LEVEL 4 - 6 Enoxaparin Sodium 40 mg 11/13/19 10:00 Lovenox - SQ DAILY NU Insulin Aspart 1 vial 11/13/19 07:00 11/13/19 07:09 Novolog Vial Sliding Scale - SQ Not Given ACHS NU Protocol Discharge Medications Medication Instructions Recorded Gabapentin 600 mg PO TID 08/18/19 Metoprolol Succinate [Toprol XL -] 25 mg PO DAILY tab.sr.24h 08/22/19 Multivitamin/Iron/Folic Acid 1 each PO DAILY 08/24/19 [Centrum Adults Tablet] Tizanidine HCl 4 mg PO TID 08/24/19 Hydroxyzine HCl 25 mg PO DAILY 11/08/19 Lisinopril 20 mg PO DAILY 11/12/19 Ondansetron HCl [Zofran] 8 mg PO TID 11/12/19 Aspirin [Aspirin EC] 81 mg PO DAILY #30 tablet.dr BATES 11/13/19 81mg Ergocalciferol (Vitamin D2) 1,250 unit PO DAILY 11/13/19 [Vitamin D2] ASSESSMENT AND PLAN: 49 year old male with history of HTN, Ascending Aortic Aneurysm, GERD, DM 2, Anxiety, DJD Spine, L foot fracture (surgery scheduled), recent admission for Septic shock/KERLINE, now presents with Chest Pain. CTA A/P - patchy airspace opacities in lower lobes ?subsegmental atelectasis, 1 cm nodule in the L base, 0.9 cm nodule R base, R inguinal hernia 1. Atypical Chest Pain ECG - no acute ST/T wave changes TropI neg x 3. Echo normal. MIBI shows mild, small, subtle inferiorlateral reversible defect, for which Cardiology (Dr. Dos Santos) recommends starting aspirin daily, with Cardiology out- patient follow up. Continue BB, TAYLOR-I. 2. Bibasal air-space opacities, likely atelectasis with bilateral Pulmonary Nodules For Pulm eval and follow up CT in 3 months as per Radiology. 3. Hyponatremia - resolved. 4. Pre-DM 2 - diet controlled, A1C 5.2 - Maintain on Novolog sliding scale. 5. GERD - Continue PPI. 6. Small low attenuation foci on anterior wall of GB, incidental finding on CT - for out-patient Abdominal US and GI referral on discharge. DVT Px - Lovenox SQ
[2019-11-13] MEDS ORDERED: MULTIVITAMINS THER W-MINERALS COMBO TABLET (FP) PO SCH (13:00)
[2019-11-13] MEDS ORDERED: LISINOPRIL 20 MG TABLET PO SCH (13:00)
[2019-11-13] MEDS ORDERED: metoPROLOL SUCCINATE 25 MG TAB.SR.24H (FP) PO SCH (13:00)
[2019-11-13] MEDS ORDERED: GABAPENTIN 300 MG CAPSULE PO SCH (14:00)
[2019-11-13] MEDS ORDERED: TIZANIDINE HCL 4 MG TABLET PO SCH (14:00)
--- NOTE | 2019-11-13 14:04 | EKG ---
Test Reason : Blood Pressure : / mmHG Vent. Rate : 063 BPM Atrial Rate : 063 BPM P-R Int : 148 ms QRS Dur : 080 ms QT Int : 436 ms P-R-T Axes : 010 041 043 degrees QTc Int : 446 ms NORMAL SINUS RHYTHM NORMAL ECG WHEN COMPARED WITH ECG OF 18-AUG-2019 13:22, VENT. RATE HAS DECREASED BY 38 BPM Confirmed by MARY GRACE ORTEGA MD ([id number]) on 11/13/2019 2:04:36 PM Referred By: Confirmed By:MARY GRACE ORTEGA MD
[2019-11-13] MEDS ORDERED: ONDANSETRON 4 MG TABLET PO PRN (15:00)
[2019-11-13] MEDS ORDERED: [UNRECOGNIZED DRUG - OTHER] PO SCH (15:00)
--- NOTE | 2019-11-13 15:09 | PN ---
Physical Exam: SUBJECTIVE: Patient seen and examined at bedside. Patient would not allow me to do a physical exam. OBJECTIVE: Vital Signs Period Temp Pulse Resp BP Sys/Lopze Pulse Ox Last 24 Hr 97.9 F-98.2 F 60-84 14-22 145-158/80-103 98-100 PE: unable to obtain Laboratory Results - last 24 hr CBC, BMP 11/13/19 06:15 11/13/19 06:15 11/12/19 11/12/19 11/12/19 15:47 15:47 15:47 WBC 6.2 RBC 3.83 L Hgb 12.4 Hct 36.3 MCV 94.9 MCH 32.3 MCHC 34.0 RDW 13.5 D Plt Count 294 MPV 7.3 L Absolute Neuts (auto) 2.3 Neutrophils % 37.1 L D Lymphocytes % 51.9 H D Monocytes % 4.8 Eosinophils % 5.2 H Basophils % 1.0 Nucleated RBC % 0 Platelet Estimate Adequate Platelet Comment No clotting detected PT with INR 11.60 INR 0.98 PTT (Actin FS) 20.1 L Anticoagulation Therapy Puncture Site Patient Temperature ABG pH ABG pCO2 ABG pO2 ABG HCO3 ABG O2 Sat (Measured) ABG O2 Content ABG Base Excess Goran Test Patient On Oxygen O2 Delivery Device Oxygen Flow Rate Vent Mode Vent Rate Mechanical Rate PEEP Pressure Support Vent Sodium 129 L Potassium 4.6 Chloride 100 Carbon Dioxide 21 Anion Gap 7 L BUN 8.3 Creatinine 0.9 Est GFR (CKD-EPI)AfAm 117.47 Est GFR (CKD-EPI)NonAf 101.35 POC Glucometer Random Glucose 76 Hemoglobin A1c % Serum Osmolality 270 L Calcium 9.3 Magnesium Total Bilirubin 0.2 AST 16 ALT 23 Alkaline Phosphatase 67 Troponin I < 0.02 B-Natriuretic Peptide 239.0 H Total Protein 7.0 Albumin 4.0 Lipase 95 Urine Color Urine Appearance Urine pH Ur Specific [place] Urine Protein Urine Glucose (UA) Urine Ketones Urine Blood Urine Nitrite Urine Bilirubin Urine Urobilinogen Ur Leukocyte Esterase Urine Osmolality Ur Random Creatinine Ur Random Sodium Opiates Screen Methadone Screen Barbiturate Screen Phencyclidine Screen Ur Amphetamines Screen MDMA (Ecstasy) Screen Benzodiazepines Screen Cocaine Screen U Marijuana (THC) Screen COVID-19 (CARLENE) 11/12/19 11/12/19 11/12/19 19:40 20:02 20:02 WBC RBC Hgb Hct MCV MCH MCHC RDW Plt Count MPV Absolute Neuts (auto) Neutrophils % Lymphocytes % Monocytes % Eosinophils % Basophils % Nucleated RBC % Platelet Estimate Platelet Comment PT with INR INR PTT (Actin FS) Anticoagulation Therapy Puncture Site Patient Temperature ABG pH ABG pCO2 ABG pO2 ABG HCO3 ABG O2 Sat (Measured) ABG O2 Content ABG Base Excess Goran Test Patient On Oxygen O2 Delivery Device Oxygen Flow Rate Vent Mode Vent Rate Mechanical Rate PEEP Pressure Support Vent Sodium Potassium Chloride Carbon Dioxide Anion Gap BUN Creatinine Est GFR (CKD-EPI)AfAm Est GFR (CKD-EPI)NonAf POC Glucometer Random Glucose Hemoglobin A1c % Serum Osmolality Calcium Magnesium Total Bilirubin AST ALT Alkaline Phosphatase Troponin I B-Natriuretic Peptide Total Protein Albumin Lipase Urine Color Yellow Urine Appearance Clear Urine pH 7.0 D Ur Specific [place] 1.015 Urine Protein Negative Urine Glucose (UA) Negative Urine Ketones Negative Urine Blood Negative Urine Nitrite Negative Urine Bilirubin Negative Urine Urobilinogen 0.2 Ur Leukocyte Esterase Negative Urine Osmolality 198 L Ur Random Creatinine 15.0 L Ur Random Sodium 50 Opiates Screen Methadone Screen Barbiturate Screen Phencyclidine Screen Ur Amphetamines Screen MDMA (Ecstasy) Screen Benzodiazepines Screen Cocaine Screen U Marijuana (THC) Screen COVID-19 (CARLENE) Not detected 11/12/19 11/13/19 11/13/19 20:46 01:53 03:02 WBC RBC Hgb Hct MCV MCH MCHC RDW Plt Count MPV Absolute Neuts (auto) Neutrophils % Lymphocytes % Monocytes % Eosinophils % Basophils % Nucleated RBC % Platelet Estimate Platelet Comment PT with INR INR PTT (Actin FS) Anticoagulation Therapy No Result Required. Puncture Site Left radial Patient Temperature No Result Required. ABG pH 7.393 ABG pCO2 30.50 L ABG pO2 99.4 ABG HCO3 18.2 L ABG O2 Sat (Measured) 97.6 ABG O2 Content No Result Required. ABG Base Excess -5.5 L Goran Test Positive Patient On Oxygen No O2 Delivery Device Room air Oxygen Flow Rate Room air Vent Mode No Result Required. Vent Rate No Result Required. Mechanical Rate No Result Required. PEEP No Result Required. Pressure Support Vent No Result Required. Sodium 136 Potassium 4.1 Chloride 105 Carbon Dioxide 21 Anion Gap 10 BUN 8.0 Creatinine 0.8 Est GFR (CKD-EPI)AfAm 123.29 Est GFR (CKD-EPI)NonAf 106.38 POC Glucometer Random Glucose 95 Hemoglobin A1c % Serum Osmolality Calcium 9.6 Magnesium Total Bilirubin AST ALT Alkaline Phosphatase Troponin I < 0.02 < 0.02 B-Natriuretic Peptide Total Protein Albumin Lipase Urine Color Urine Appearance Urine pH Ur Specific [place] Urine Protein Urine Glucose (UA) Urine Ketones Urine Blood Urine Nitrite Urine Bilirubin Urine Urobilinogen Ur Leukocyte Esterase Urine Osmolality Ur Random Creatinine Ur Random Sodium Opiates Screen Methadone Screen Barbiturate Screen Phencyclidine Screen Ur Amphetamines Screen MDMA (Ecstasy) Screen Benzodiazepines Screen Cocaine Screen U Marijuana (THC) Screen COVID-19 (CARLENE) 11/13/19 11/13/19 11/13/19 04:50 06:15 06:15 WBC 8.7 RBC 4.17 Hgb 13.3 Hct 38.9 MCV 93.4 MCH 31.9 MCHC 34.1 RDW 13.2 Plt Count 338 MPV 6.7 L Absolute Neuts (auto) 5.1 Neutrophils % 58.2 D Lymphocytes % 31.6 D Monocytes % 5.2 Eosinophils % 4.0 Basophils % 1.0 Nucleated RBC % 0 Platelet Estimate Platelet Comment PT with INR INR PTT (Actin FS) Anticoagulation Therapy Puncture Site Patient Temperature ABG pH ABG pCO2 ABG pO2 ABG HCO3 ABG O2 Sat (Measured) ABG O2 Content ABG Base Excess Goran Test Patient On Oxygen O2 Delivery Device Oxygen Flow Rate Vent Mode Vent Rate Mechanical Rate PEEP Pressure Support Vent Sodium 135 L Potassium 4.5 Chloride 104 Carbon Dioxide 24 Anion Gap 7 L BUN 10.4 Creatinine 0.7 Est GFR (CKD-EPI)AfAm 130.25 Est GFR (CKD-EPI)NonAf 112.38 POC Glucometer Random Glucose 92 Hemoglobin A1c % Serum Osmolality Calcium 9.6 Magnesium 1.9 Total Bilirubin 0.3 AST 14 L ALT 24 Alkaline Phosphatase 72 Troponin I B-Natriuretic Peptide Total Protein 7.6 Albumin 4.4 Lipase Urine Color Urine Appearance Urine pH Ur Specific [place] Urine Protein Urine Glucose (UA) Urine Ketones Urine Blood Urine Nitrite Urine Bilirubin Urine Urobilinogen Ur Leukocyte Esterase Urine Osmolality Ur Random Creatinine Ur Random Sodium Opiates Screen Positive A* Methadone Screen Negative Barbiturate Screen Negative Phencyclidine Screen Negative Ur Amphetamines Screen Negative MDMA (Ecstasy) Screen Negative Benzodiazepines Screen Negative Cocaine Screen Negative U Marijuana (THC) Screen Negative COVID-19 (CARLENE) 11/13/19 11/13/19 11/13/19 06:15 07:03 13:24 WBC RBC Hgb Hct MCV MCH MCHC RDW Plt Count MPV Absolute Neuts (auto) Neutrophils % Lymphocytes % Monocytes % Eosinophils % Basophils % Nucleated RBC % Platelet Estimate Platelet Comment PT with INR INR PTT (Actin FS) Anticoagulation Therapy Puncture Site Patient Temperature ABG pH ABG pCO2 ABG pO2 ABG HCO3 ABG O2 Sat (Measured) ABG O2 Content ABG Base Excess Goran Test Patient On Oxygen O2 Delivery Device Oxygen Flow Rate Vent Mode Vent Rate Mechanical Rate PEEP Pressure Support Vent Sodium Potassium Chloride Carbon Dioxide Anion Gap BUN Creatinine Est GFR (CKD-EPI)AfAm Est GFR (CKD-EPI)NonAf POC Glucometer 93 93 Random Glucose Hemoglobin A1c % 5.2 Serum Osmolality Calcium Magnesium Total Bilirubin AST ALT Alkaline Phosphatase Troponin I B-Natriuretic Peptide Total Protein Albumin Lipase Urine Color Urine Appearance Urine pH Ur Specific [place] Urine Protein Urine Glucose (UA) Urine Ketones Urine Blood Urine Nitrite Urine Bilirubin Urine Urobilinogen Ur Leukocyte Esterase Urine Osmolality Ur Random Creatinine Ur Random Sodium Opiates Screen Methadone Screen Barbiturate Screen Phencyclidine Screen Ur Amphetamines Screen MDMA (Ecstasy) Screen Benzodiazepines Screen Cocaine Screen U Marijuana (THC) Screen COVID-19 (CARLENE) Active Medications Generic Name Dose Route Start Last Admin Trade Name Freq PRN Reason Stop Dose Admin Acetaminophen 1,000 mg 11/13/19 04:30 Ofirmev Injection - IVPB Q6H PRN PAIN LEVEL 4 - 6 Enoxaparin Sodium 40 mg 11/13/19 10:00 11/13/19 13:38 Lovenox - SQ 40 mg DAILY NU Administration Gabapentin 600 mg 11/13/19 14:00 Neurontin - PO TID [facility] Insulin Aspart 1 vial 11/13/19 07:00 11/13/19 13:39 Novolog Vial Sliding Scale - SQ Not Given ACHS [facility] Protocol Lisinopril 20 mg 11/13/19 13:00 Prinivil PO DAILY [facility] Metoprolol Succinate 25 mg 11/13/19 13:00 Toprol Xl - PO DAILY [facility] Multivitamins/Minerals 1 each 11/13/19 13:00 Theragran-M PO DAILY [facility] Non-Formulary Medication 10,000 unit 11/14/19 10:00 Cholecalciferol (Vitamin D3) [Vitamin D3] PO DAILY [facility] Non-Formulary Medication 25 mg 11/14/19 10:00 Hydroxyzine Hcl [Hydroxyzine Hcl] PO DAILY [facility] Non-Formulary Medication 1,250 unit 11/13/19 15:00 Ergocalciferol (Vitamin D2) [Vitamin D2] PO DAILY [facility] Ondansetron HCl 8 mg 11/13/19 15:00 Zofran - PO TID [facility] Pantoprazole Sodium 20 mg 11/14/19 10:00 Protonix - PO DAILY [facility] Tizanidine HCl 8 mg 11/13/19 14:00 Tizanidine Hcl PO TID [facility] ASSESSMENT/PLAN: 49 y/o M with PMX of HTN, Ascending Aortic Aneurysm, GERD, DM, Anxiety, DJD Spine disease, L foot fracture (surgery scheduled for this Wed), recent admission for Septic shock/KERLINE, now presenting with Chest Pain. #Chest Pain-atypical -ECG at admission showed no acute ST/T wave changes -Trops were neg x 3 -Echo was wnl -MIBI-slightly abnormal but does not qualify for ischemia. -Cardio Consult: Dr. Dos Santos recommends c/w Metoprolol and start ASA; can be managed outpatient. Stress test slightly abnormal but does not meet ischemia criteria #Hyponatremia -resolved #Bibasal air-space opacities seen on CT -CTA A/P - patchy airspace opacities in lower lobes, subsegmental atelectasis, 1 cm nodule in the L base, 0.9 cm nodule R base, -follow up CT in 3 months as per Radiology -likely atelectasis w/ bilateral Pulmonary Nodules -Pulm consult: recommends outpt f/u #DM -ISS w/ BGMs #GERD -c/w PPI. #Small low attenuation foci on anterior wall of GB -incidental finding on CT -f/u out-patient Abdominal US -GI referral to be given upon d/c #Ppx -DVT: Lovenox SQ dispo: continue to monitor in tele Visit type - Emergency Visit Emergency Visit: No - New Patient This patient is new to me today: Yes Date on this admission: 11/13/19 - Critical Care Critical Care patient: No - Discharge Referral Referred to [facility] No ATTENDING PHYSICIAN STATEMENT I saw and evaluated the patient. I reviewed the resident's note and discussed the case with the resident. I agree with the resident's findings and plan as documented. SUBJECTIVE: OBJECTIVE: ASSESSMENT AND PLAN:
--- NOTE | 2019-11-13 15:51 | CON.PULM ---
Consult Consult Specialty:: PULMONARY Referred by:: Dr Grey Reason for Consultation:: abnormal CT findings - History of Present Illness Chief Complaint: chest pain History of Present Illness: 49yo male with h/o HTN, DM, GERD, aortic aneurysm, chronic back pain who was admitted with chest pain. CT chest done which showed basilar atelectasis vs infiltrates. He denies shortness of breath, cough or wheezing. No fevers, chills or sweats. No leg swelling. Currently only complaint is his back pain. He is a former smoker. - History Source History Provided By: Patient, Medical Record Limitations to Obtaining History: Clinical Condition - Past Medical History Cardio/Vascular: Yes: Aneurysm (Ascending aortic), HTN Pulmonary: Yes: Pneumonia Gastrointestinal: Yes: Other (Diverticular disease) Endocrine: Yes: Diabetes Mellitus - Past Surgical History Additional Surgical History: Left foot surgery, back (disc) surgery - Alcohol/Substance Use Hx Alcohol Use: Yes (previously) - Smoking History Smoking history: Former smoker Have you smoked in the past 12 months: Yes Aproximately how many cigarettes per day: 20 If you are a former smoker, when did you quit?: july - Social History Usual Living Arrangement: With Spouse Home Medications - Allergies Allergies/Adverse Reactions: Allergies Allergy/AdvReac Type Severity Reaction Status Date / Time No Known Allergies Allergy Verified 11/12/19 14:54 - Home Medications Home Medications: Ambulatory Orders Gabapentin 600 mg PO TID 08/18/19 Metoprolol Succinate [Toprol XL -] 25 mg PO DAILY tab.sr.24h 08/22/19 Multivitamin/Iron/Folic Acid [Centrum Adults Tablet] 1 each PO DAILY 08/24/19 Tizanidine HCl 4 mg PO TID 08/24/19 Hydroxyzine HCl 25 mg PO DAILY 11/08/19 Lisinopril 20 mg PO DAILY 11/12/19 Ondansetron HCl [Zofran] 8 mg PO TID 11/12/19 Aspirin [Aspirin EC] 81 mg PO DAILY #30 tablet.dr BATES 81mg 11/13/19 Ergocalciferol (Vitamin D2) [Vitamin D2] 1,250 unit PO DAILY 11/13/19 Review of Systems - Review of Systems Constitutional: denies: Chills, Fever Eyes: denies: Recent Change in Vision HENT: denies: Nasal Congestion, Throat Pain Neck: denies: Stiffness, Tenderness Cardiovascular: reports: Chest Pain. denies: Shortness of Breath Respiratory: denies: Cough, Hemoptysis, Wheezing Gastrointestinal: denies: Abdominal Pain, Nausea, Vomiting Genitourinary: denies: Dysuria, Hematuria Neurological: denies: Dizziness, Headache Endocrine: denies: Unexplained Weight Loss Physical Exam Vital Sings: Vital Signs Temperature 98.2 F 11/13/19 06:20 Pulse Rate 62 11/13/19 06:20 Respiratory Rate 20 11/13/19 06:20 Blood Pressure 153/80 11/13/19 06:20 O2 Sat by Pulse Oximetry (%) 98 11/13/19 06:20 Constitutional: Yes: Calm Eyes: Yes: Conjunctiva Clear, EOM Intact HENT: Yes: Atraumatic, Normocephalic Neck: Yes: Supple, Trachea Midline Cardiovascular: Yes: Regular Rate and Rhythm Respiratory: Yes: Diminished (at bases) ...Clubbing: No Gastrointestinal: Yes: Normal Bowel Sounds, Soft. No: Tenderness Edema: No Neurological: Yes: Alert, Oriented Labs: CBC, BMP 11/13/19 06:15 11/13/19 06:15 ABG Results ABG pH 7.393 (7.350-7.450) 11/13/19 03:02 ABG HCO3 18.2 mmol/L (22-27) L 11/13/19 03:02 ABG O2 Sat (Measured) 97.6 mmHg (95-98) 11/13/19 03:02 ABG O2 Content No Result Required. 11/13/19 03:02 ABG Base Excess -5.5 mmol/L (-2-2) L 11/13/19 03:02 Imaging - Results Chest X-ray: Report Reviewed, Image Reviewed Cat Scan: Report Reviewed, Image Reviewed (basilar atelectasis) Assessment/Plan Chest Pain Atelectasis HTN GERD DM Chronic Back Pain - incentive spirometry - cardiac work up in progress - do not suspect pneumonia at this time, can f/u chest imaging as an outpt - no further inpatient pulmonary work up at this time Thank you for this consult Kevyn Mauro MD
--- NOTE | 2019-11-13 16:09 | CONSULT ---
Consultation: REQUESTING PROVIDER: Dr. Joyner Nephrology service- resident consult note CONSULT REQUEST: We have been asked to medically evaluate this patient for hyponatremia. HISTORY OF PRESENT ILLNESS: Patient is a 49 year old male with history of hypertension, ascending aortic aneurysm, anxiety, diabetes, gastro-esophageal reflux, dejenerative disc disease presents with chest pain. Describes crushing chest pain that has been intermittent for past few days. He had been seeing his primary care physician for clearance of surgical revision left foot fracture, and noted to be hyponatremic. In ED sodium noted to be 129. CT chest, abdomen, pelvis did not reveal acute dissection or pulmonary embolism. 0.9cm right nodular opacity noted. Discussed with patient's - his Losartan had recently been switched to Lisinopril. He has been taking hydrochlorthiazide. Medical history: hypertension, ascending aortic aneurysm, anxiety, diabetes, gastro-esophageal reflux, dejenerative disc disease Surgical history: lower back surgery, left foot surgery Family history: noncontributory Social: former pack per day smoker- quit three months ago. Endorses former alcohol consumption (6 beer/ day)- reportedly quit in July. Denies illicit drug use. REVIEW OF SYSTEMS: As per HPI PHYSICAL EXAMINATION Vital Signs - 24 hr 11/12/19 11/12/19 11/12/19 17:05 17:34 18:10 Temperature Pulse Rate [ 63 60 Apical] Pulse Rate [ Left Radial] Respiratory 22 H 22 H Rate Blood Pressure 148/103 H 156/96 [Right Arm] O2 Sat by Pulse 100 98 100 Oximetry (%) 11/12/19 11/13/19 11/13/19 20:05 02:50 06:20 Temperature 97.9 F 98.2 F Pulse Rate [ 69 Apical] Pulse Rate [ 84 62 Left Radial] Respiratory 14 20 Rate Blood Pressure 145/96 158/87 153/80 [Right Arm] O2 Sat by Pulse 99 99 98 Oximetry (%) GENERAL: The patient is awake, alert, and fully oriented, in no mild distress. HEAD: Normocephalic, atraumatic. EYES: PERRL, extraocular movements intact, sclera anicteric, conjunctiva clear. ENT: Oropharynx clear, without erythema or exudates. Moist mucous membranes. NECK: Trachea midline, full range of motion. Supple without lymphadenopathy. LUNGS: Breath sounds equal, clear to auscultation bilaterally. No wheezes, no crackles. No accessory muscle use. HEART: Regular rate and rhythm. S1, S2 without murmur, rub or gallop. ABDOMEN: Soft, nondistended, nontender to light and deep palpation x4 quadrants. No rebound tenderness, no guarding. Normoactive bowel sounds x4 quadrants. No hepatosplenomegaly, no masses appreciated. EXTREMITIES: 2+ radial, dorsalis pedis pulses bilaterally. Warm, well-perfused. No lower extremity edema bilaterally. NEUROLOGICAL: Cranial nerves II through XII grossly intact. Normal speech. No gross focal deficits. PSYCH: Normal mood, normal affect upon my encounter. SKIN: Warm, dry. Laboratory Results - last 24 hr 11/12/19 11/12/19 11/12/19 15:47 15:47 15:47 WBC 6.2 RBC 3.83 L Hgb 12.4 Hct 36.3 MCV 94.9 MCH 32.3 MCHC 34.0 RDW 13.5 D Plt Count 294 MPV 7.3 L Absolute Neuts (auto) 2.3 Neutrophils % 37.1 L D Lymphocytes % 51.9 H D Monocytes % 4.8 Eosinophils % 5.2 H Basophils % 1.0 Nucleated RBC % 0 Platelet Estimate Adequate Platelet Comment No clotting detected PT with INR 11.60 INR 0.98 PTT (Actin FS) 20.1 L Anticoagulation Therapy Puncture Site Patient Temperature ABG pH ABG pCO2 ABG pO2 ABG HCO3 ABG O2 Sat (Measured) ABG O2 Content ABG Base Excess Goran Test Patient On Oxygen O2 Delivery Device Oxygen Flow Rate Vent Mode Vent Rate Mechanical Rate PEEP Pressure Support Vent Sodium 129 L Potassium 4.6 Chloride 100 Carbon Dioxide 21 Anion Gap 7 L BUN 8.3 Creatinine 0.9 Est GFR (CKD-EPI)AfAm 117.47 Est GFR (CKD-EPI)NonAf 101.35 POC Glucometer Random Glucose 76 Hemoglobin A1c % Serum Osmolality 270 L Calcium 9.3 Magnesium Total Bilirubin 0.2 AST 16 ALT 23 Alkaline Phosphatase 67 Troponin I < 0.02 B-Natriuretic Peptide 239.0 H Total Protein 7.0 Albumin 4.0 Lipase 95 Urine Color Urine Appearance Urine pH Ur Specific Martell Urine Protein Urine Glucose (UA) Urine Ketones Urine Blood Urine Nitrite Urine Bilirubin Urine Urobilinogen Ur Leukocyte Esterase Urine Osmolality Ur Random Creatinine Ur Random Sodium Opiates Screen Methadone Screen Barbiturate Screen Phencyclidine Screen Ur Amphetamines Screen MDMA (Ecstasy) Screen Benzodiazepines Screen Cocaine Screen U Marijuana (THC) Screen COVID-19 (CARLENE) 11/12/19 11/12/19 11/12/19 19:40 20:02 20:02 WBC RBC Hgb Hct MCV MCH MCHC RDW Plt Count MPV Absolute Neuts (auto) Neutrophils % Lymphocytes % Monocytes % Eosinophils % Basophils % Nucleated RBC % Platelet Estimate Platelet Comment PT with INR INR PTT (Actin FS) Anticoagulation Therapy Puncture Site Patient Temperature ABG pH ABG pCO2 ABG pO2 ABG HCO3 ABG O2 Sat (Measured) ABG O2 Content ABG Base Excess Goran Test Patient On Oxygen O2 Delivery Device Oxygen Flow Rate Vent Mode Vent Rate Mechanical Rate PEEP Pressure Support Vent Sodium Potassium Chloride Carbon Dioxide Anion Gap BUN Creatinine Est GFR (CKD-EPI)AfAm Est GFR (CKD-EPI)NonAf POC Glucometer Random Glucose Hemoglobin A1c % Serum Osmolality Calcium Magnesium Total Bilirubin AST ALT Alkaline Phosphatase Troponin I B-Natriuretic Peptide Total Protein Albumin Lipase Urine Color Yellow Urine Appearance Clear Urine pH 7.0 D Ur Specific Martell 1.015 Urine Protein Negative Urine Glucose (UA) Negative Urine Ketones Negative Urine Blood Negative Urine Nitrite Negative Urine Bilirubin Negative Urine Urobilinogen 0.2 Ur Leukocyte Esterase Negative Urine Osmolality 198 L Ur Random Creatinine 15.0 L Ur Random Sodium 50 Opiates Screen Methadone Screen Barbiturate Screen Phencyclidine Screen Ur Amphetamines Screen MDMA (Ecstasy) Screen Benzodiazepines Screen Cocaine Screen U Marijuana (THC) Screen COVID-19 (CARLENE) Not detected 11/12/19 11/13/19 11/13/19 20:46 01:53 03:02 WBC RBC Hgb Hct MCV MCH MCHC RDW Plt Count MPV Absolute Neuts (auto) Neutrophils % Lymphocytes % Monocytes % Eosinophils % Basophils % Nucleated RBC % Platelet Estimate Platelet Comment PT with INR INR PTT (Actin FS) Anticoagulation Therapy No Result Required. Puncture Site Left radial Patient Temperature No Result Required. ABG pH 7.393 ABG pCO2 30.50 L ABG pO2 99.4 ABG HCO3 18.2 L ABG O2 Sat (Measured) 97.6 ABG O2 Content No Result Required. ABG Base Excess -5.5 L Goran Test Positive Patient On Oxygen No O2 Delivery Device Room air Oxygen Flow Rate Room air Vent Mode No Result Required. Vent Rate No Result Required. Mechanical Rate No Result Required. PEEP No Result Required. Pressure Support Vent No Result Required. Sodium 136 Potassium 4.1 Chloride 105 Carbon Dioxide 21 Anion Gap 10 BUN 8.0 Creatinine 0.8 Est GFR (CKD-EPI)AfAm 123.29 Est GFR (CKD-EPI)NonAf 106.38 POC Glucometer Random Glucose 95 Hemoglobin A1c % Serum Osmolality Calcium 9.6 Magnesium Total Bilirubin AST ALT Alkaline Phosphatase Troponin I < 0.02 < 0.02 B-Natriuretic Peptide Total Protein Albumin Lipase Urine Color Urine Appearance Urine pH Ur Specific Martell Urine Protein Urine Glucose (UA) Urine Ketones Urine Blood Urine Nitrite Urine Bilirubin Urine Urobilinogen Ur Leukocyte Esterase Urine Osmolality Ur Random Creatinine Ur Random Sodium Opiates Screen Methadone Screen Barbiturate Screen Phencyclidine Screen Ur Amphetamines Screen MDMA (Ecstasy) Screen Benzodiazepines Screen Cocaine Screen U Marijuana (THC) Screen COVID-19 (CARLENE) 11/13/19 11/13/19 11/13/19 04:50 06:15 06:15 WBC 8.7 RBC 4.17 Hgb 13.3 Hct 38.9 MCV 93.4 MCH 31.9 MCHC 34.1 RDW 13.2 Plt Count 338 MPV 6.7 L Absolute Neuts (auto) 5.1 Neutrophils % 58.2 D Lymphocytes % 31.6 D Monocytes % 5.2 Eosinophils % 4.0 Basophils % 1.0 Nucleated RBC % 0 Platelet Estimate Platelet Comment PT with INR INR PTT (Actin FS) Anticoagulation Therapy Puncture Site Patient Temperature ABG pH ABG pCO2 ABG pO2 ABG HCO3 ABG O2 Sat (Measured) ABG O2 Content ABG Base Excess Goran Test Patient On Oxygen O2 Delivery Device Oxygen Flow Rate Vent Mode Vent Rate Mechanical Rate PEEP Pressure Support Vent Sodium 135 L Potassium 4.5 Chloride 104 Carbon Dioxide 24 Anion Gap 7 L BUN 10.4 Creatinine 0.7 Est GFR (CKD-EPI)AfAm 130.25 Est GFR (CKD-EPI)NonAf 112.38 POC Glucometer Random Glucose 92 Hemoglobin A1c % Serum Osmolality Calcium 9.6 Magnesium 1.9 Total Bilirubin 0.3 AST 14 L ALT 24 Alkaline Phosphatase 72 Troponin I B-Natriuretic Peptide Total Protein 7.6 Albumin 4.4 Lipase Urine Color Urine Appearance Urine pH Ur Specific Martell Urine Protein Urine Glucose (UA) Urine Ketones Urine Blood Urine Nitrite Urine Bilirubin Urine Urobilinogen Ur Leukocyte Esterase Urine Osmolality Ur Random Creatinine Ur Random Sodium Opiates Screen Positive A* Methadone Screen Negative Barbiturate Screen Negative Phencyclidine Screen Negative Ur Amphetamines Screen Negative MDMA (Ecstasy) Screen Negative Benzodiazepines Screen Negative Cocaine Screen Negative U Marijuana (THC) Screen Negative COVID-19 (CARLENE) 11/13/19 11/13/19 11/13/19 06:15 07:03 13:24 WBC RBC Hgb Hct MCV MCH MCHC RDW Plt Count MPV Absolute Neuts (auto) Neutrophils % Lymphocytes % Monocytes % Eosinophils % Basophils % Nucleated RBC % Platelet Estimate Platelet Comment PT with INR INR PTT (Actin FS) Anticoagulation Therapy Puncture Site Patient Temperature ABG pH ABG pCO2 ABG pO2 ABG HCO3 ABG O2 Sat (Measured) ABG O2 Content ABG Base Excess Goran Test Patient On Oxygen O2 Delivery Device Oxygen Flow Rate Vent Mode Vent Rate Mechanical Rate PEEP Pressure Support Vent Sodium Potassium Chloride Carbon Dioxide Anion Gap BUN Creatinine Est GFR (CKD-EPI)AfAm Est GFR (CKD-EPI)NonAf POC Glucometer 93 93 Random Glucose Hemoglobin A1c % 5.2 Serum Osmolality Calcium Magnesium Total Bilirubin AST ALT Alkaline Phosphatase Troponin I B-Natriuretic Peptide Total Protein Albumin Lipase Urine Color Urine Appearance Urine pH Ur Specific Martell Urine Protein Urine Glucose (UA) Urine Ketones Urine Blood Urine Nitrite Urine Bilirubin Urine Urobilinogen Ur Leukocyte Esterase Urine Osmolality Ur Random Creatinine Ur Random Sodium Opiates Screen Methadone Screen Barbiturate Screen Phencyclidine Screen Ur Amphetamines Screen MDMA (Ecstasy) Screen Benzodiazepines Screen Cocaine Screen U Marijuana (THC) Screen COVID-19 (CARLENE) Active Medications Generic Name Dose Route Start Last Admin Trade Name Freq PRN Reason Stop Dose Admin Acetaminophen 1,000 mg 11/13/19 04:30 Ofirmev Injection - IVPB Q6H PRN PAIN LEVEL 4 - 6 Enoxaparin Sodium 40 mg 11/13/19 10:00 11/13/19 13:38 Lovenox - SQ 40 mg DAILY NU Administration Gabapentin 600 mg 11/13/19 14:00 Neurontin - PO TID [facility] Insulin Aspart 1 vial 11/13/19 07:00 11/13/19 13:39 Novolog Vial Sliding Scale - SQ Not Given ACHS [facility] Protocol Lisinopril 20 mg 11/13/19 13:00 Prinivil PO DAILY [facility] Metoprolol Succinate 25 mg 11/13/19 13:00 Toprol Xl - PO DAILY [facility] Multivitamins/Minerals 1 each 11/13/19 13:00 Theragran-M PO DAILY NU Non-Formulary Medication 10,000 unit 11/14/19 10:00 Cholecalciferol (Vitamin D3) [Vitamin D3] PO DAILY NU Non-Formulary Medication 25 mg 11/14/19 10:00 Hydroxyzine Hcl [Hydroxyzine Hcl] PO DAILY NU Non-Formulary Medication 1,250 unit 11/13/19 15:00 Ergocalciferol (Vitamin D2) [Vitamin D2] PO DAILY NU Ondansetron HCl 8 mg 11/13/19 15:00 Zofran - PO TID [facility] Pantoprazole Sodium 20 mg 11/14/19 10:00 Protonix - PO DAILY NU Tizanidine HCl 8 mg 11/13/19 14:00 Tizanidine Hcl PO TID [facility] ASSESSMENT/PLAN: Patient is a 49 year old male with history of hypertension, ascending aortic aneurysm, anxiety, diabetes, gastro-esophageal reflux, dejenerative disc disease presents with chest pain. Admitted for hyponatremia, further cardiac workup of chest pain. Impression: Hyponatremia Hypertension Chest pain Ascending aortic aneurysm Anxiety Diabetes Gastro-esophageal reflux Dejenerative disc disease Plan Hyponatremia likely secondary to diuretic use (Hydrochlorthiazide noted in home medications). Hyponatremia resolved. Recommend holding HCTZ for now Free water restriction 1L Monitor intake, output Follow BMP Avoid nephrotoxic agents Will require outpatient follow up Disposition: We will continue to follow the patient. Thank you for this consultative opportunity. Visit type - Emergency Visit Emergency Visit: Yes ED Registration Date: 11/12/19 Care time: The patient presented to the Emergency Department on the above date and was hospitalized for further evaluation of their emergent condition. - New Patient This patient is new to me today: Yes Date on this admission: 11/13/19 - Critical Care Critical Care patient: No ATTENDING PHYSICIAN STATEMENT I saw and evaluated the patient. I reviewed the resident's note and discussed the case with the resident. I agree with the resident's findings and plan as documented. SUBJECTIVE: OBJECTIVE: ASSESSMENT AND PLAN:
--- NOTE | 2019-11-13 16:09 | DS ---
Physical Exam: SUBJECTIVE: Patient seen and examined at bedside. Refused physical exam. OBJECTIVE: Vital Signs Period Temp Pulse Resp BP Sys/Lopez Pulse Ox Last 24 Hr 97.9 F-98.2 F 60-84 14-22 145-158/80-103 98-100 PHYSICAL EXAM unable to obtain. As per Dr. Grey's exam LABS Laboratory Results - last 24 hr CBC, BMP 11/13/19 06:15 11/13/19 06:15 11/12/19 11/12/19 11/12/19 15:47 15:47 15:47 WBC 6.2 RBC 3.83 L Hgb 12.4 Hct 36.3 MCV 94.9 MCH 32.3 MCHC 34.0 RDW 13.5 D Plt Count 294 MPV 7.3 L Absolute Neuts (auto) 2.3 Neutrophils % 37.1 L D Lymphocytes % 51.9 H D Monocytes % 4.8 Eosinophils % 5.2 H Basophils % 1.0 Nucleated RBC % 0 Platelet Estimate Adequate Platelet Comment No clotting detected PT with INR 11.60 INR 0.98 PTT (Actin FS) 20.1 L Anticoagulation Therapy Puncture Site Patient Temperature ABG pH ABG pCO2 ABG pO2 ABG HCO3 ABG O2 Sat (Measured) ABG O2 Content ABG Base Excess Goran Test Patient On Oxygen O2 Delivery Device Oxygen Flow Rate Vent Mode Vent Rate Mechanical Rate PEEP Pressure Support Vent Sodium 129 L Potassium 4.6 Chloride 100 Carbon Dioxide 21 Anion Gap 7 L BUN 8.3 Creatinine 0.9 Est GFR (CKD-EPI)AfAm 117.47 Est GFR (CKD-EPI)NonAf 101.35 POC Glucometer Random Glucose 76 Hemoglobin A1c % Serum Osmolality 270 L Calcium 9.3 Magnesium Total Bilirubin 0.2 AST 16 ALT 23 Alkaline Phosphatase 67 Troponin I < 0.02 B-Natriuretic Peptide 239.0 H Total Protein 7.0 Albumin 4.0 Lipase 95 Urine Color Urine Appearance Urine pH Ur Specific Lawrence Urine Protein Urine Glucose (UA) Urine Ketones Urine Blood Urine Nitrite Urine Bilirubin Urine Urobilinogen Ur Leukocyte Esterase Urine Osmolality Ur Random Creatinine Ur Random Sodium Opiates Screen Methadone Screen Barbiturate Screen Phencyclidine Screen Ur Amphetamines Screen MDMA (Ecstasy) Screen Benzodiazepines Screen Cocaine Screen U Marijuana (THC) Screen COVID-19 (CARLENE) 11/12/19 11/12/19 11/12/19 19:40 20:02 20:02 WBC RBC Hgb Hct MCV MCH MCHC RDW Plt Count MPV Absolute Neuts (auto) Neutrophils % Lymphocytes % Monocytes % Eosinophils % Basophils % Nucleated RBC % Platelet Estimate Platelet Comment PT with INR INR PTT (Actin FS) Anticoagulation Therapy Puncture Site Patient Temperature ABG pH ABG pCO2 ABG pO2 ABG HCO3 ABG O2 Sat (Measured) ABG O2 Content ABG Base Excess Goran Test Patient On Oxygen O2 Delivery Device Oxygen Flow Rate Vent Mode Vent Rate Mechanical Rate PEEP Pressure Support Vent Sodium Potassium Chloride Carbon Dioxide Anion Gap BUN Creatinine Est GFR (CKD-EPI)AfAm Est GFR (CKD-EPI)NonAf POC Glucometer Random Glucose Hemoglobin A1c % Serum Osmolality Calcium Magnesium Total Bilirubin AST ALT Alkaline Phosphatase Troponin I B-Natriuretic Peptide Total Protein Albumin Lipase Urine Color Yellow Urine Appearance Clear Urine pH 7.0 D Ur Specific Lawrence 1.015 Urine Protein Negative Urine Glucose (UA) Negative Urine Ketones Negative Urine Blood Negative Urine Nitrite Negative Urine Bilirubin Negative Urine Urobilinogen 0.2 Ur Leukocyte Esterase Negative Urine Osmolality 198 L Ur Random Creatinine 15.0 L Ur Random Sodium 50 Opiates Screen Methadone Screen Barbiturate Screen Phencyclidine Screen Ur Amphetamines Screen MDMA (Ecstasy) Screen Benzodiazepines Screen Cocaine Screen U Marijuana (THC) Screen COVID-19 (CARLENE) Not detected 11/12/19 11/13/19 11/13/19 20:46 01:53 03:02 WBC RBC Hgb Hct MCV MCH MCHC RDW Plt Count MPV Absolute Neuts (auto) Neutrophils % Lymphocytes % Monocytes % Eosinophils % Basophils % Nucleated RBC % Platelet Estimate Platelet Comment PT with INR INR PTT (Actin FS) Anticoagulation Therapy No Result Required. Puncture Site Left radial Patient Temperature No Result Required. ABG pH 7.393 ABG pCO2 30.50 L ABG pO2 99.4 ABG HCO3 18.2 L ABG O2 Sat (Measured) 97.6 ABG O2 Content No Result Required. ABG Base Excess -5.5 L Goran Test Positive Patient On Oxygen No O2 Delivery Device Room air Oxygen Flow Rate Room air Vent Mode No Result Required. Vent Rate No Result Required. Mechanical Rate No Result Required. PEEP No Result Required. Pressure Support Vent No Result Required. Sodium 136 Potassium 4.1 Chloride 105 Carbon Dioxide 21 Anion Gap 10 BUN 8.0 Creatinine 0.8 Est GFR (CKD-EPI)AfAm 123.29 Est GFR (CKD-EPI)NonAf 106.38 POC Glucometer Random Glucose 95 Hemoglobin A1c % Serum Osmolality Calcium 9.6 Magnesium Total Bilirubin AST ALT Alkaline Phosphatase Troponin I < 0.02 < 0.02 B-Natriuretic Peptide Total Protein Albumin Lipase Urine Color Urine Appearance Urine pH Ur Specific Lawrence Urine Protein Urine Glucose (UA) Urine Ketones Urine Blood Urine Nitrite Urine Bilirubin Urine Urobilinogen Ur Leukocyte Esterase Urine Osmolality Ur Random Creatinine Ur Random Sodium Opiates Screen Methadone Screen Barbiturate Screen Phencyclidine Screen Ur Amphetamines Screen MDMA (Ecstasy) Screen Benzodiazepines Screen Cocaine Screen U Marijuana (THC) Screen COVID-19 (CARLENE) 11/13/19 11/13/19 11/13/19 04:50 06:15 06:15 WBC 8.7 RBC 4.17 Hgb 13.3 Hct 38.9 MCV 93.4 MCH 31.9 MCHC 34.1 RDW 13.2 Plt Count 338 MPV 6.7 L Absolute Neuts (auto) 5.1 Neutrophils % 58.2 D Lymphocytes % 31.6 D Monocytes % 5.2 Eosinophils % 4.0 Basophils % 1.0 Nucleated RBC % 0 Platelet Estimate Platelet Comment PT with INR INR PTT (Actin FS) Anticoagulation Therapy Puncture Site Patient Temperature ABG pH ABG pCO2 ABG pO2 ABG HCO3 ABG O2 Sat (Measured) ABG O2 Content ABG Base Excess Goran Test Patient On Oxygen O2 Delivery Device Oxygen Flow Rate Vent Mode Vent Rate Mechanical Rate PEEP Pressure Support Vent Sodium 135 L Potassium 4.5 Chloride 104 Carbon Dioxide 24 Anion Gap 7 L BUN 10.4 Creatinine 0.7 Est GFR (CKD-EPI)AfAm 130.25 Est GFR (CKD-EPI)NonAf 112.38 POC Glucometer Random Glucose 92 Hemoglobin A1c % Serum Osmolality Calcium 9.6 Magnesium 1.9 Total Bilirubin 0.3 AST 14 L ALT 24 Alkaline Phosphatase 72 Troponin I B-Natriuretic Peptide Total Protein 7.6 Albumin 4.4 Lipase Urine Color Urine Appearance Urine pH Ur Specific Lawrence Urine Protein Urine Glucose (UA) Urine Ketones Urine Blood Urine Nitrite Urine Bilirubin Urine Urobilinogen Ur Leukocyte Esterase Urine Osmolality Ur Random Creatinine Ur Random Sodium Opiates Screen Positive A* Methadone Screen Negative Barbiturate Screen Negative Phencyclidine Screen Negative Ur Amphetamines Screen Negative MDMA (Ecstasy) Screen Negative Benzodiazepines Screen Negative Cocaine Screen Negative U Marijuana (THC) Screen Negative COVID-19 (CARLENE) 11/13/19 11/13/19 11/13/19 06:15 07:03 13:24 WBC RBC Hgb Hct MCV MCH MCHC RDW Plt Count MPV Absolute Neuts (auto) Neutrophils % Lymphocytes % Monocytes % Eosinophils % Basophils % Nucleated RBC % Platelet Estimate Platelet Comment PT with INR INR PTT (Actin FS) Anticoagulation Therapy Puncture Site Patient Temperature ABG pH ABG pCO2 ABG pO2 ABG HCO3 ABG O2 Sat (Measured) ABG O2 Content ABG Base Excess Goran Test Patient On Oxygen O2 Delivery Device Oxygen Flow Rate Vent Mode Vent Rate Mechanical Rate PEEP Pressure Support Vent Sodium Potassium Chloride Carbon Dioxide Anion Gap BUN Creatinine Est GFR (CKD-EPI)AfAm Est GFR (CKD-EPI)NonAf POC Glucometer 93 93 Random Glucose Hemoglobin A1c % 5.2 Serum Osmolality Calcium Magnesium Total Bilirubin AST ALT Alkaline Phosphatase Troponin I B-Natriuretic Peptide Total Protein Albumin Lipase Urine Color Urine Appearance Urine pH Ur Specific Lawrence Urine Protein Urine Glucose (UA) Urine Ketones Urine Blood Urine Nitrite Urine Bilirubin Urine Urobilinogen Ur Leukocyte Esterase Urine Osmolality Ur Random Creatinine Ur Random Sodium Opiates Screen Methadone Screen Barbiturate Screen Phencyclidine Screen Ur Amphetamines Screen MDMA (Ecstasy) Screen Benzodiazepines Screen Cocaine Screen U Marijuana (THC) Screen COVID-19 (CARLENE) HOSPITAL COURSE: 49 year old male with history of HTN, Ascending Aortic Aneurysm, GERD, DM 2, Anxiety, DJD Spine, L foot fracture (surgery scheduled), recent admission for Septic shock/KERLINE, presented with Chest Pain and hyponatremia. Patient's hyponatremia resolved in the ED with free water restriction. Patient endorses that he drinks a lot of Gatorade. Patient was worked up for his chest pain and EKG was negative for any acute changes. Troponins were negative x3. Patient had a lexiscan stress test done which was positive for a small subtle inferiorlateral reversible defect but did not qualify for ischemia. Dr. Dos Santos (cardiology) recommended outpatient follow up along with Aspirin 81 mg daily. Patient also had an echo done which was normal. Patient had a CT of abdomen and pelvis done which showed patchy airspace opacities in lower lobes with questionable subsegmental atelectasis with nodules at the base of both lungs. Pulm was consulted and they recommended outpatient follow up with a repeat scan in 3 months as per radiology for the nodules. Patient had a small low attenuation foci on anterior wall of GB which was an incidental finding on CT and was given a GI referral for outpatient abdominal US. Date of Admission:11/12/19 11/12/19-EKG-NSR 11/12/19-Echo-LV is normal in size, LV systolic function is normal. no regional wall motion abnormalities noted. EF: 60-65%. Mild aortic regurgitation. No pericardial effusion. 11/12/19-CXR-no acute radiographic findings. correlate with concurrent CT chest, abdomen, and pelvis report. 11/12/19-no evidence of aortic dissection. Patchy bilateral lower lobe opacities are suggestive of subsegmental atelectasis, however pneumonia cannot be excluded in the appropriate clinical context. 0.9 nodular opacity at the right base could represent sequela of aforementioned atelectasis or developing consolidation, however a 3 month follow-up chest CT is recommended to confirm resolution and exclude growth. Prominent mediastinal lymph nodes measuring up to 1.0 cm are redemonstrated and not significantly changed compared to the prior study. 0.2 cm focus of increased attenuation along the anterior gallbladder wall is not significantly changed compared to the prior study, but appears more prominent than findings from July 20, 2012 study. Consider follow-up RUQ US if further investigation desired. 11/13/19-Stress test- exercise results: 1. nonspecific ST segment abnormality, bu t noes not be ischemic criteria 2. Appropriate BP response. 3. Patient remained asymptomatic. NUCLEAR RESULTS: 1. small size, mild, subtle, inferolateral reversible defect suggest mild intensity ischemia. 2. normal LV contraction with LVEF 65% Date of Discharge: 11/13/19 Minutes to complete discharge: 36 Discharge Summary Problems reviewed: Yes Reason For Visit: HYPONATREMIA THORACIC AORTIC ANEURYSM SITHOUT RUPT Current Active Problems Chest pain (Acute) Hyponatremia (Acute) Thoracic aortic aneurysm, without rupture (Acute) Condition: Stable - Instructions Diet, Activity, Other Instructions: Your visit: You were admitted to the hospital for low sodium that was found at your recent doctor's appointment and chest pain. We found no new abnormalities during your visit. You were treated with fluid restriction with improvement of your symptoms. We also did imaging and a stress test of your heart to see the cause of your chest pain. Echo showed normal ejection fraction and wall motion. You underwent a stress test that showed a mild, small, subtle inferiorlateral reversible defect, for which Cardiology recommended starting aspirin daily, with Cardiology follow up. CT Chest showed some lungs changes and nodules for which you are advised to follow with a Medical/Surgery Registered Nurse as an out-patient. Medications changes: -Continue to take all other home medications as prescribed. Follow up: - Please follow-up with your employee benefits director, Dr. Dos Santos in 1 week. -Please follow-up with your combination technician, Dr. Mcginnis in 1 week. -Please follow-up with your Manager Chinese, Dr. Beckwith in 2 weeks. - Visit with your Primary Care Provider, Dr. Deng in 2 weeks. Additional Instructions: -You are being discharged to your home. -Please return to the Emergency Department if you experience worsening pain, fevers, chills, shortness of breath, or chest pain, or if you experience any worsening, new or concerning symptoms. Referrals: Aleksandr Fagan [Primary Care Provider] - Cooper Mcginnis MD [Staff Physician] - 1 Week (abnormal CT Chest findings with bibasal opacities and pulmonary nodules) David Beckwith DO [Staff Physician] - 2 Weeks (abnormal foci on anterior wall of GB) Benoit Dos Santos MD [Staff Physician] - 1 Week (CP with MIBI showing small reversible defect) Disposition: HOME - Home Medications Comprehensive Discharge Medication List: Ambulatory Orders Gabapentin 600 mg PO TID 08/18/19 Metoprolol Succinate [Toprol XL -] 25 mg PO DAILY tab.sr.24h 08/22/19 Multivitamin/Iron/Folic Acid [Centrum Adults Tablet] 1 each PO DAILY 08/24/19 Tizanidine HCl 4 mg PO TID 08/24/19 Hydroxyzine HCl 25 mg PO DAILY 11/08/19 Lisinopril 20 mg PO DAILY 11/12/19 Ondansetron HCl [Zofran] 8 mg PO TID 11/12/19 Aspirin [Aspirin EC] 81 mg PO DAILY #30 tablet.dr JANA 81mg 11/13/19 Ergocalciferol (Vitamin D2) [Vitamin D2] 1,250 unit PO DAILY 11/13/19 This patient is new to me today: Yes Date on this admission: 11/13/19 Emergency Visit: No Critical Care patient: No - Discharge Referral Referred to [facility] No ATTENDING PHYSICIAN STATEMENT I saw and evaluated the patient. I reviewed the resident's note and discussed the case with the resident. I agree with the resident's findings and plan as documented. SUBJECTIVE: OBJECTIVE: ASSESSMENT AND PLAN:
[2019-11-13] MEDS ORDERED: metoPROLOL SUCCINATE 25 MG TAB.SR.24H (FP) ONE (16:32)
[2019-11-13] MEDS ORDERED: LISINOPRIL 20 MG TABLET ONE (16:32)
[2019-11-13] MEDS ORDERED: GABAPENTIN 100 MG CAPSULE ONE (16:32)
--- NOTE | 2019-11-13 17:05 | PN ---
Teaching Attending Note Name of Resident: Jamin Chaney (Nephrology) ATTENDING PHYSICIAN STATEMENT I saw and evaluated the patient. I reviewed the resident's note and discussed the case with the resident. I agree with the resident's findings and plan as documented. Renal Pt is a 49 year old man who presents to the ER with chest pain. He has history of htn, dm, aortic aneurysm, gerd and anxiety. He was found to be hyponatremic and I was called to evaluate him. pmhx htn aneurysm gerd anxiety dm herniated disks nkda social hx denies family hx non contrib Current Medications Generic Name Dose Route Start Last Admin Trade Name Freq PRN Reason Stop Dose Admin Acetaminophen 1,000 mg 11/13/19 04:30 Ofirmev Injection - IVPB Q6H PRN PAIN LEVEL 4 - 6 Enoxaparin Sodium 40 mg 11/13/19 10:00 11/13/19 13:38 Lovenox - SQ 40 mg DAILY NU Administration Gabapentin 600 mg 11/13/19 14:00 Neurontin - PO TID [facility] Insulin Aspart 1 vial 11/13/19 07:00 11/13/19 13:39 Novolog Vial Sliding Scale - SQ Not Given ACHS [facility] Protocol Lisinopril 20 mg 11/13/19 13:00 Prinivil PO DAILY [facility] Metoprolol Succinate 25 mg 11/13/19 13:00 Toprol Xl - PO DAILY [facility] Multivitamins/Minerals 1 each 11/13/19 13:00 Theragran-M PO DAILY [facility] Non-Formulary Medication 10,000 unit 11/14/19 10:00 Cholecalciferol (Vitamin D3) [Vitamin D3] PO DAILY NU Non-Formulary Medication 25 mg 11/14/19 10:00 Hydroxyzine Hcl [Hydroxyzine Hcl] PO DAILY [facility] Non-Formulary Medication 1,250 unit 11/13/19 15:00 Ergocalciferol (Vitamin D2) [Vitamin D2] PO DAILY NU Ondansetron HCl 8 mg 11/13/19 15:00 Zofran - PO TID PRN NAUSEA Pantoprazole Sodium 20 mg 11/14/19 10:00 Protonix - PO DAILY NU Tizanidine HCl 8 mg 11/13/19 14:00 Tizanidine Hcl PO TID NU Last Vital Signs Temp Pulse Resp BP Pulse Ox 98.2 F 62 20 153/80 98 11/13/19 06:20 11/13/19 06:20 11/13/19 06:20 11/13/19 06:20 11/13/19 06:20 Laboratory Tests 11/13/19 11/13/19 01:53 06:15 Sodium 136 135 L Potassium 4.1 4.5 Chloride 104 Carbon Dioxide 21 24 Creatinine 0.8 0.7 cardio s1s2 pulm clear gi soft ext neg edema Impression: Hyponatremia Hypertension Chest pain Ascending aortic aneurysm Anxiety Diabetes Gastro-esophageal reflux Dejenerative disc disease Plan - sodium improved - avoid thiazide - pt drinks about 2.5 to 3 liters of water per day and about 8 small bottles of gatorade. - discussed fluid intake - monitor bp on current meds - will need outpt follow up
[2019-11-14] MEDS ORDERED: PANTOPRAZOLE 20 MG TABLET PO SCH (10:00)
[2019-11-14] MEDS ORDERED: PATIENT'S OWN MEDICATION (NON-FORMULARY) (Cholecalciferol (Vitamin D3) [Vitamin D3] 10,000 PO SCH (10:00)
[2019-11-14] MEDS ORDERED: hydrOXYzine PAMOATE 25 MG CAPSULE (FP) PO SCH (10:00)
== END 2019-11-13 20:00 | disposition home or self-care (01) | DRG 641 ==
LOC: JER 14:47 → JERBED 21:45
PROVIDERS: ADMIT Internal Medicine; ATTEND Student in an Organized Health Care Education/Training Program
DX: E87.1 Hypo-osmolality and hyponatremia (principal); J98.11 Atelectasis; E11.9 Type 2 diabetes mellitus without complications; I10 Essential (primary) hypertension; I71.2 Thoracic aortic aneurysm, without rupture; E78.5 Hyperlipidemia, unspecified; K74.60 Unspecified cirrhosis of liver; J45.909 Unspecified asthma, uncomplicated; R07.9 Chest pain, unspecified; K21.9 Gastro-esophageal reflux disease without esophagitis; F41.9 Anxiety disorder, unspecified; R91.1 Solitary pulmonary nodule; M51.37 Other intervertebral disc degeneration, lumbosacral region; R07.89 Other chest pain; K40.90 Unilateral inguinal hernia, without obstruction or gangrene, not specified as recurrent
CPT/HCPCS: 36415; 36600; 71045-TC-FY; 71275-TC; 74174-TC; 76000-TC-FY; 78452-TC; 80048; 80053; 80307; 81003; 82565; 82803; 82962; 83036; 83690; 83735; 83880; 83930; 83935; 84300; 84484; 85025; 85610; 85730; 87086; 93005; 93010; 93017; 93306-TC; 93970-TC; 99285-25; A9502; J0131; J2785; Q9967; U0003

== ENCOUNTER 2019-11-17 04:47 | Inpatient (IN) | payer OTHER ==
[2019-11-08 17:34] VITALS: BMI 25.8
[2019-11-17] MEDS ORDERED: LIDOCAINE HCL 1%, 10 MG/ML (20ML VIAL) ONE (16:17)
[2019-11-17] MEDS ORDERED: BUPIVACAINE HCL/PF 0.25% (2.5MG/ML) 10 ML VIAL ONE (16:17)
[2019-11-17] MEDS ORDERED: MIDAZOLAM HCL 2 MG/2 ML SINGLE DOSE VIAL ONE (16:27)
[2019-11-17] MEDS ORDERED: PROPOFOL 20 ML ONE ×3 (16:27→17:43)
[2019-11-17] MEDS ORDERED: ceFAZolin SODIUM 1 GM VIAL IVPB ONE (17:14)
[2019-11-17] MEDS ORDERED: ceFAZolin SODIUM 1 GM VIAL ONE ×2 (17:18→21:20)
[2019-11-17] MEDS ORDERED: LIDOCAINE HCL 1%, 10 MG/ML (20ML VIAL) INF ONE (17:20)
[2019-11-17] MEDS ORDERED: HYDROmorphone HCl 2 MG/ML VIAL ONE ×3 (17:36→23:41)
[2019-11-17] MEDS ORDERED: BUPIVACAINE HCL/PF 0.5% (5 MG/ML) 30 ML VIAL IJ ONE (18:18)
[2019-11-17] MEDS ORDERED: EPHEDRINE SULFATE/0.9% NACL/PF 50 MG/10 ML SYRINGE NR ONE (19:44)
[2019-11-17] MEDS ORDERED: METOPROLOL TARTRATE 5 MG/5 ML VIAL ONE (20:45)
[2019-11-17] MEDS ORDERED: BACITRACIN 15 GM TUBE TOPICAL OINTMENT ONE (21:24)
[2019-11-17] MEDS ORDERED: KETOROLAC TROMETHAMINE 30 MG/1 ML VIAL ONE (21:28)
[2019-11-17] MEDS ORDERED: ACETAMINOPHEN INJECTION 100 ML IVPB ONE (21:29)
[2019-11-17] MEDS ORDERED: ONDANSETRON 4 MG/2 ML VIAL IVPUSH PRN (22:18)
[2019-11-17] MEDS: LACTATED RINGERS SOLUTION 1,000 ML IV SCH (22:30)
[2019-11-17] MEDS ORDERED: oxyCODONE HCL 5 MG TABLET PO ONE (22:31)
[2019-11-17] MEDS ORDERED: HYDROmorphone HCl 2 MG/ML VIAL IVPUSH ONE (23:11)
[2019-11-17] MEDS ORDERED: oxyCODONE HCL 5 MG TABLET ONE (23:43)
[2019-11-18] MEDS ORDERED: HYDROmorphone HCl 2 MG/ML VIAL IVPUSH ONE (00:30)
--- NOTE | 2019-11-18 04:19 | HOSP ---
Subjective - Review of Symptoms Subjective: Received microblog from nurse to evaluate patient post op, now s/p Osteotomies of 2nd & 3rd metatarsals of left foot, with reduction of 2nd & 3rd toes using screws & wires for internal fixation with podiatry Dr. Rodriguez. Patient arrived to 6S mildly confused and agitated. HOwever with redirection and reassurance his agitation improved. Physical Examination Vital Signs: Vital Signs Temperature 97.5 F L 11/18/19 00:36 Pulse Rate 84 11/18/19 00:36 Respiratory Rate 18 11/18/19 00:36 Blood Pressure 133/88 11/18/19 00:36 O2 Sat by Pulse Oximetry (%) 98 11/18/19 00:36 Hospitalist Encounter Assessment: Phys exam: Gen: AAOx2 unaware of time HEENT: Oropharynx clear without exudates or erythema CV: S1S2 WNL Pulm: CTABL no wheezez/ rhonchi/ rales Abd: Soft NTND Extr: No edema. L foot in clean dressing. Plan: observe as post op prn pain medications as per podiatry Dr. Rodriguez-- pt is s/p 2mg IV dilaudid, 200mg IV fentanyl and 10mg PO oxy post op left voice message for Dr. Rodriguez Visit type - Emergency Visit Emergency Visit: No - New Patient This patient is new to me today: Yes Date on this admission: 11/20/19 - Critical Care Critical Care patient: No
[2019-11-18] MEDS ORDERED: ACETAMINOPHEN 1000 MG/100 ML VIAL (NON FORMULARY) IVPB ONE (04:26)
[2019-11-18] MEDS: LACTATED RINGERS SOLUTION 1,000 ML IV SCH (05:41)
[2019-11-18] MEDS ORDERED: HYDROmorphone HCl 2 MG/ML VIAL IVPB PRN (06:21)
--- NOTE | 2019-11-18 06:28 | PN ---
Progress Note (short form) - Note Progress Note: Anesthesia post op pain consult Called to patient room to evaluate patient for pain. Patient was in distress unable to talk much secondary to pain. Unable to fully interview patient but described pain medially on left foot. Overnight Patient pain progressively got worse according to the nurse but the patient only received Ofirmev IVPB on the floor as well as 2mg dilaudid IV in the PACU post op. A nerve block was offered to the patient to relieve pain as the patient will not be weight baring for four weeks. The patient refused stating hes had bad experiences with a nerve block before but couldnt elaborate. With the patient refusing a nerve block, the only other pain management option is pharmacological. dilaudid IVPB and gabapentin ordered and will follow up when the pain is better controlled.
[2019-11-18] MEDS: GABAPENTIN 300 MG CAPSULE PO SCH ×2 (06:52→22:56)
[2019-11-18] MEDS ORDERED: LORazepam 2 MG/ML SDV VIAL IVPUSH ONE (07:31)
[2019-11-18] MEDS ORDERED: GABAPENTIN 300 MG CAPSULE PO SCH ×2 (10:00)
[2019-11-18] MEDS ORDERED: MIDAZOLAM HCL 2 MG/2 ML SINGLE DOSE VIAL IM ONE (10:06)
--- NOTE | 2019-11-18 10:06 | PN ---
Progress Note (short form) - Note Progress Note: POD1 s/p partial transmetarsal resection/ORIF left 2/3rd toes. Pt c/o pain but also has altered mental status (h/o EtOH/cirrhosis). Asked to evaluate patient for possible nerve block. Pt thrashing wildly in bed, a combination of pain and agitation. When a nerve block was explained and offered to him, he refused it, citing a nerve block he had several years ago that he had complications from. Additionally, it is unlikely that pt would be able to hold still for an adductor/popliteal block. Will defer nerve block at this time, and add midazolam for agitation
[2019-11-18] MEDS ORDERED: oxyCODONE HCL 5 MG TABLET PO ONE (10:16)
[2019-11-18] MEDS ORDERED: morphine CARPU-JECT 4 MG/1 ML DISP.SYRIN SQ PRN (10:26)
[2019-11-18] MEDS: morphine SULFATE 4 MG/ML VIAL SQ PRN ×4 (10:42→21:53)
--- NOTE | 2019-11-18 10:43 | PN ---
Physical Exam: SUBJECTIVE: Patient seen and examined. Pt. in exquisite pain after procedure. Pt. has altered mental status and knows only his name and location. Pt. reported to have pulled out IV multiple times overnight, though Pt. denies doing so. RNs have been unable ot give him medications on schedule because of this. However prior administrations did not decrease pain. Pt. is currently in bed writhing in pain and unable to answer questions and without IV access. anesthesia consult notes appreciated. OBJECTIVE: Vital Signs Period Temp Pulse Resp BP Sys/Lopez Pulse Ox Last 24 Hr 97.5 F-98.6 F 74-87 12-28 132-167/80-98 94-140 Phys exam: limited 2/2 pain Gen: AAOx2 unaware of time or date, in alot of pain, writhing in bed HEENT: Oropharynx clear without exudates or erythema CV: S1S2 WNL Pulm: CTABL no wheezez/ rhonchi/ rales Abd: Soft NTND Extr: No edema. L foot in clean dressing. Active Medications Generic Name Dose Route Start Last Admin Trade Name Freq PRN Reason Stop Dose Admin Gabapentin 600 mg 11/18/19 06:45 11/18/19 06:52 Neurontin - PO Not Given BID NU Lactated Ringer's 1,000 mls @ 125 mls/hr 11/17/19 22:30 11/18/19 05:41 Lactated Ringers Solution IV 125 mls/hr ASDIR NU Administration Morphine Sulfate 8 mg 11/18/19 10:27 Morphine Sulfate SQ Q2H PRN PAIN LEVEL 7 - 10 Ondansetron HCl 4 mg 11/17/19 22:18 Zofran Injection IVPUSH Q6H PRN NAUSEA AND/OR VOMITING ASSESSMENT/PLAN: Pt. is a 49 y.o. M w/ PMHx. including HTN, TAA, GERD, DM2, anxiety, is admitted for LLE osteotomies of 3rd and 4th digit. Pt. admitted for intractable pain. #POD# 1 for LLE Osteotomies in 3rd and 4th digit. Pain control with IV dilaudid once IV access obtained. Will give Morphoine SQ/IM for now and PO oxycodone Anesthesia consult appreciated. Ideally Pt. would benefit form nerve block but Pt. states he has had complications with that in the past and declines. Observe for 24 hours as per RN discussion with Dr. Rodriguez this AM Incentive Spirometer Non-weight bearing on left leg for 4 weeks--> reemphazised with Pt. who on my arrival was sitting at the edge of bed with both legs on floor. reported by RN that he was been up all night agitated and applying pressure to LLE. Pt. will benefit from PT once pain is controlled c/w Gabapentin and Zofran await labs before restarting home medications (Lisinopril and Metoprolol) would avoid Hydrozyzine inpatient as Pt. is at increased fall risk hold ASA Visit type - Emergency Visit Emergency Visit: No - New Patient This patient is new to me today: Yes Date on this admission: 11/18/19 - Critical Care Critical Care patient: No - Discharge Referral Referred to [facility] No ATTENDING PHYSICIAN STATEMENT I saw and evaluated the patient. I reviewed the resident's note and discussed the case with the resident. I agree with the resident's findings and plan as documented. SUBJECTIVE: OBJECTIVE: ASSESSMENT AND PLAN:
[2019-11-18 10:50] LABS: METHADONE, UR NEGATIVE ng/ml (CUTOFF=300); PHENCYCLIDINE,URINE NEGATIVE ng/ml (CUTOFF=25); URINE AMPHETAMINES NEGATIVE ng/ml (CUTOFF=500)
[2019-11-18 10:55] LABS: COCAINE, UR NEGATIVE ng/ml (CUTOFF=300); URINE BARBITURATES NEGATIVE ng/ml (CUTOFF=200)
[2019-11-18 11:00] LABS: URINE APPEARANCE CLEAR; URINE BILIRUBIN NEGATIVE (NEGATIVE); URINE COLOR YELLOW; URINE GLUCOSE (UA) NEGATIVE (NEGATIVE); URINE KETONE NEGATIVE (NEGATIVE); URINE LEUK ESTERASE NEGATIVE (NEGATIVE); URINE NITRITE NEGATIVE (NEGATIVE); URINE PROTEIN NEGATIVE (NEGATIVE); URINE UROBILINOGEN 0.2 mg/dL (0.2-1.0)
[2019-11-18 12:33] LABS: OPIATES, URI POSITIVE ng/ml (CUTOFF=300); URINE BENZODIAZEPINES POSITIVE ng/ml (CUTOFF=200)
[2019-11-18] MEDS ORDERED: HALOPERIDOL LACTATE 5 MG/ML IM ONE (12:42)
--- NOTE | 2019-11-18 12:42 | PN ---
Teaching Attending Note Name of Resident: Jose Houser ATTENDING PHYSICIAN STATEMENT I saw and evaluated the patient. I reviewed the resident's note and discussed the case with the resident. I agree with the resident's findings and plan as documented. SUBJECTIVE: 49yo M with h/o HTN, TAA, GERD, Type 2 DM, DJD of the spine who originally pres ented to the facility due to surgical procedure of his L foot fracture. Patient underwent procedure without notable events and was noted to be writhing in pain associated with his post-operative foot. On my exam, patient did not talk with me due to being in pain, but he had remarked to the resident that his pain was only in his foot. We were asked for consultation to help with acute management of pain. Of note, Patient was recently hospitalized on 11/13/19 due to chest pain and hyponatremia. He was seen by cardiology in that admission and started on aspirin daily and had cardiac stress testing performed. PMHX: As above PShx: LLE osteotomies SoHX: Unable to obtain FamHx: Unable to obtain OBJECTIVE: Vital Signs Temperature 98.7 F 11/18/19 11:09 Pulse Rate 102 H 11/18/19 11:09 Respiratory Rate 16 11/18/19 11:09 Blood Pressure 107/93 11/18/19 11:09 O2 Sat by Pulse Oximetry (%) 95 11/18/19 11:09 PE: Gen: awake, alert, mod distress EXT: no bleeding noted, LLE bandaged rest of PE not able to be performed CBC, BMP 11/18/19 12:05 11/18/19 12:05 ASSESSMENT AND PLAN: LLE Osteostomies POD 1 HypoMg RLL nodule history History of Thoracic aortic aneurysm History of HTN GERD iSTOP Reference #: [id number] percocet 10 day supplies by surgeon --? pain with superimposed psychosis? --No true metabolic reason for his condition: CBC, BMP WNL, utox without any significant medications not receiving in hospitalization, UA without pyuria --Pt expressed to resident that he is not having any chest pain or diffuse body pain other than his foot. --Previous CTA 11/13/19 with 4.0cm ascending aortic aneurysm --Patient would likely require medium-acting oral opiate therapy alongside of breakthrough parenteral, however patient will not allow for IV access, in addition, he is not accepting oral medications. When confronted as to why he continued to writhe in distress without talking to me. --Patient is a poor candidate for nerve block due to constant movement and per EMR he has refused prior --Due to risk of harm to himself will give Haldol IM 5mg ONCE. His prior ECG's QTc is 470ms that is in the paper chart, however due to his condition, care team cannot provide IV access, repeat ECG, or administer medications of higher efficacy to help his pain/distress. --Anesthesia mgmt noted --Rest per primary team and if escalating needs for pain control, recommend pain management to aide in care --As of last time, patient will need to have repeat scan on RLL nodule, currently 0.9cm Farzad Beach DO - IM
[2019-11-18 12:52] LABS: BASO % 0.5 % (0-2.0); EOS % 3.7 % (0-4.5); HEMATOCRIT 35.3 % (35.4-49); HEMOGLOBIN 11.8 GM/dL (11.7-16.9); LYMPH % 24.2 % (8-40); MCH 31.2 pg (25.7-33.7); MCHC 33.4 g/dl (32.0-35.9); MEAN CELL VOLUME 93.2 fl (80-96); MEAN PLT VOLUME 7.3 fl (7.5-11.1); MONO % 7.9 % (3.8-10.2); NEUT % 63.7 % (42.8-82.8); PLATELET COUNT 331 K/MM3 (134-434); RBC 3.78 M/mm3 (4.00-5.60); RDW 12.9 % (11.9-15.9); WHITE BLOOD COUNT 9.5 K/mm3 (4.0-10.0)
[2019-11-18 13:14] LABS: ALBUMIN 4.3 g/dl (3.4-5.0); BILIRUBIN,TOTAL 0.6 mg/dL (0.2-1); CALCIUM 9.4 mg/dL (8.5-10.1); CREATININE 0.8 mg/dL (0.55-1.3); MAGNESIUM 1.5 mg/dL (1.8-2.4); POTASSIUM 4.3 mmol/L (3.5-5.1); TOT PROT 7.5 g/dl (6.4-8.2)
[2019-11-18] MEDS ORDERED: metoPROLOL SUCCINATE 25 MG TAB.SR.24H (FP) PO SCH ×2 (17:49→18:15)
[2019-11-18] MEDS: metoPROLOL SUCCINATE 25 MG TAB.SR.24H (FP) PO SCH (18:18)
[2019-11-18] MEDS ORDERED: ONDANSETRON *ODT* 4 MG TABLET SL PRN (18:47)
[2019-11-19] MEDS: morphine SULFATE 4 MG/ML VIAL SQ PRN ×6 (01:58→16:15)
[2019-11-19 02:03] VITALS: PULSE 97
[2019-11-19] MEDS: GABAPENTIN 300 MG CAPSULE PO SCH (09:46)
[2019-11-19] MEDS: metoPROLOL SUCCINATE 25 MG TAB.SR.24H (FP) PO SCH (09:46)
[2019-11-19] MEDS ORDERED: LISINOPRIL 20 MG TABLET PO SCH (10:00)
[2019-11-19] MEDS ORDERED: metoPROLOL SUCCINATE 25 MG TAB.SR.24H (FP) PO SCH (10:00)
--- NOTE | 2019-11-19 11:27 | PN ---
Physical Exam: SUBJECTIVE: Patient seen and examined at the bedside. OBJECTIVE: POD1 s/p partial transmetarsal resection/ORIF left 2/3rd toes. Pt c/o pain but also has altered mental status (h/o EtOH/cirrhosis). Asked to evaluate patient for possible nerve block. Pt thrashing wildly in bed, a combination of pain and agitation. When a nerve block was explained and offered to him, he refused it, citing a nerve block he had several years ago that he had complications from. Additionally, it is unlikely that pt would be able to hold still for an adductor/popliteal block. Will defer nerve block at this time, and add midazolam for agitation Vital Signs Period Temp Pulse Resp BP Sys/Lopez Pulse Ox Last 24 Hr 98.5 F-99.3 F 97-100 18-18 140-163/84-107 95-98 GENERAL: The patient is awake, alert, and fully oriented, in no acute distress. HEAD: Normal with no signs of trauma. EYES: PERRL, extraocular movements intact, sclera anicteric, conjunctiva clear. No ptosis. ENT: Ears normal, nares patent, oropharynx clear without exudates, moist mucous membranes. NECK: Trachea midline, full range of motion, supple. LUNGS: Breath sounds equal, clear to auscultation bilaterally, no wheezes, no crackles, no accessory muscle use. HEART: Regular rate and rhythm, S1, S2 without murmur, rub or gallop. ABDOMEN: Soft, nontender, nondistended, normoactive bowel sounds, no guarding, no rebound, no hepatosplenomegaly, no masses. EXTREMITIES: 2+ pulses, warm, well-perfused, no edema. NEUROLOGICAL: Cranial nerves II through XII grossly intact. Normal speech, gait not observed. PSYCH: Normal mood, normal affect. SKIN: Warm, dry, normal turgor, no rashes or lesions noted Laboratory Results - last 24 hr 11/18/19 11/18/19 11/18/19 10:15 12:05 12:05 WBC 9.5 RBC 3.78 L Hgb 11.8 Hct 35.3 L MCV 93.2 MCH 31.2 MCHC 33.4 RDW 12.9 Plt Count 331 MPV 7.3 L Absolute Neuts (auto) 6.0 Neutrophils % 63.7 Lymphocytes % 24.2 D Monocytes % 7.9 Eosinophils % 3.7 Basophils % 0.5 Nucleated RBC % 0 Sodium 137 Potassium 4.3 Chloride 104 Carbon Dioxide 25 Anion Gap 7 L BUN 7.0 Creatinine 0.8 Est GFR (CKD-EPI)AfAm 123.29 Est GFR (CKD-EPI)NonAf 106.38 POC Glucometer Random Glucose 98 Calcium 9.4 Phosphorus 4.0 Magnesium 1.5 L Total Bilirubin 0.6 AST 29 ALT 27 Alkaline Phosphatase 75 Total Protein 7.5 Albumin 4.3 Opiates Screen Positive A* Methadone Screen Negative Barbiturate Screen Negative Phencyclidine Screen Negative Ur Amphetamines Screen Negative MDMA (Ecstasy) Screen Negative Benzodiazepines Screen Positive A* Cocaine Screen Negative U Marijuana (THC) Screen Negative 11/18/19 16:54 WBC RBC Hgb Hct MCV MCH MCHC RDW Plt Count MPV Absolute Neuts (auto) Neutrophils % Lymphocytes % Monocytes % Eosinophils % Basophils % Nucleated RBC % Sodium Potassium Chloride Carbon Dioxide Anion Gap BUN Creatinine Est GFR (CKD-EPI)AfAm Est GFR (CKD-EPI)NonAf POC Glucometer 251 Random Glucose Calcium Phosphorus Magnesium Total Bilirubin AST ALT Alkaline Phosphatase Total Protein Albumin Opiates Screen Methadone Screen Barbiturate Screen Phencyclidine Screen Ur Amphetamines Screen MDMA (Ecstasy) Screen Benzodiazepines Screen Cocaine Screen U Marijuana (THC) Screen Active Medications Generic Name Dose Route Start Last Admin Trade Name Freq PRN Reason Stop Dose Admin Gabapentin 600 mg 11/18/19 06:45 11/19/19 09:46 Neurontin - PO 600 mg BID NU Administration Lactated Ringer's 1,000 mls @ 125 mls/hr 11/17/19 22:30 11/18/19 05:41 Lactated Ringers Solution IV 125 mls/hr ASDIR NU Administration Lisinopril 20 mg 11/19/19 10:00 11/19/19 09:45 Prinivil PO 20 mg DAILY NU Administration Metoprolol Succinate 25 mg 11/18/19 18:30 11/19/19 09:46 Toprol Xl - PO 25 mg DAILY NU Administration Morphine Sulfate 8 mg 11/18/19 10:27 11/19/19 10:43 Morphine Sulfate SQ 8 mg Q2H PRN Administration PAIN LEVEL 7 - 10 Ondansetron HCl 4 mg 11/18/19 18:47 Zofran Odt - SL Q6H PRN NAUSEA AND/OR VOMITING ASSESSMENT/PLAN:
--- NOTE | 2019-11-19 11:42 | PN ---
Progress Note (short form) - Note Progress Note: Saw patient this morning at bedside. His pain is 8/10 and is in less distress His cast is CDI He had refused the popliteal nerve block and I explained to him its importance as it can give him up to three days of pain relief. He nodded his head in agreement. I spoke with Mrs. Gamble as well and she has been kept apprised of his progress He has pulled out his IV access and has been receiving 8mg morphine subq. I spoke with both pain management and anesthesia today and have made arrangements to administer the popliteal block again today so that he can be discharged home comfortably. He can then be discharged pending when his family and come and get him as well as clearance from Dr. Stoll / hospitalist. Nico Rodriguez DPM [phone] cell
[2019-11-19] MEDS ORDERED: MIDAZOLAM HCL 2 MG/2 ML SINGLE DOSE VIAL ONE ×2 (11:52)
[2019-11-19] MEDS ORDERED: BUPIVACAINE LIPOSOME/PF (EXPAREL) 266 MG/20 ML VIAL ONE (11:58)
[2019-11-19] MEDS ORDERED: ONDANSETRON 4 MG/2 ML VIAL IVPUSH ONE (12:00)
[2019-11-19 12:09] VITALS: BP 134/84; TEMP 97.9
--- NOTE | 2019-11-19 16:35 | DS ---
Physical Exam: SUBJECTIVE: Patient seen and examined at the bedside. OBJECTIVE: POD#2 s/p partial transmetarsal resection/ORIF left 2/3rd toes. Pt c/o pain that was intolerable and also had AMS. Patient mentation now back to baseline and pain was controlled with morphine 8mg IV push. He has a nerve block today with anesthesia and will be discharged home with outpatient follow up with podiatry. ISTOP Patient Name: Rishabh Gamble Date: 1970 Address: [address] [place] [address] Sex: Male Rx Written Rx Dispensed Drug Quantity Days Supply Prescriber Name Payment Method Dispenser 10/25/2019 10/25/2019 oxycodone-acetaminophen 7.5-325 mg tablet 30 10 Nico Rodriguez [facility] 08/16/2019 08/16/2019 oxycodone-acetaminophen 7.5-325 mg tablet 30 10 Nico Rodriguez Insurance [facility] 03/30/2019 03/30/2019 oxycodone-acetaminophen 10-325 mg tablet 12 2 [facility] Insurance [facility] 02/04/2019 02/04/2019 oxycodone hcl 5 mg tablet 15 5 Anabella Us MD Insurance [facility] Vital Signs Period Temp Pulse Resp BP Sys/Lopez Pulse Ox Last 24 Hr 97.9 F-99.3 F 97-99 17-18 134-163/84-107 95-98 PHYSICAL EXAM general: awake, alert, in no acute distress. more comfortable after nerve block. HEENT: Oropharynx clear without exudates or erythema CV: S1S2 WNL Pulm: CTABL no wheezez/ rhonchi/ rales Abd: Soft NTND Extr: No edema. L foot in clean dressing. LABS Laboratory Results - last 24 hr 11/18/19 16:54 POC Glucometer 251 HOSPITAL COURSE: Date of Admission:11/18/19 Date of Discharge: 11/19/19 POD# 2 for LLE Osteotomies in 3rd and 4th digit. pain uncontrolled and started on high dose morphine iv push. Patient had a nerve block today, pain now controlled. Discharge with percocet and zofran prn - i stop reviewed outpatient follow up with Dr. Rodriguez Patient to pick him up tonight Minutes to complete discharge: 45 Discharge Summary Problems reviewed: Yes Reason For Visit: DIGITAL DISLOCATION L 2,3 Condition: Stable - Instructions Diet, Activity, Other Instructions: Discharge Instruction for Peripheral Nerve Blocks of the Leg Your nerve block is likely to provide pain relief and can last up to 72 hours. This is only an estimate of the duration of your nerve block, and it is important that you take your oral pain medication in the proper time to give you the best overall result in controlling post- operative discomfort. When To Take Your Pain Medication Your surgeon will prescribe oral pain medication (pills) for you to take after your surgery. Begin taking the pain medication before the nerve block begins to wear off. If your leg is extremely heavy and numb, the block is still working, but if you begin to experience any sensation in your extremity including tingling or mild pain at the surgical site you should immediately take your pills as prescribed. The idea is to have pain medication circulating in your body before the nerve block wears off. It can take 30 to 60 minutes for oral pain medication to become fully effective. What To Expect After a Nerve Block Nerve blocks affect the nerves that control movement, pain, and normal sensation. After the nerve block, you may experience: 1. numbness 2. tingling 3. heaviness 4. weakness or inability to move your arm Although, nerve blocks tend to last for many hours, once it begins to wear off, the nerve block is usually completely gone within 60 minutes. Protection After A Nerve Block While your leg is numb and weak, you are at risk of inadvertent injury if left unprotected. To avoid injury, please take the following precautions: Always use crutches, Complete nonweight bearing to the left leg when you must move to a different location Drink fluids and stay hydrated Avoid Alcohol Take oral pain meds as prescribed Keep plastic urinal at bedside Have family assist you when moving about Disposition: HOME - Home Medications Comprehensive Discharge Medication List: Ambulatory Orders Gabapentin 600 mg PO TID 08/18/19 Metoprolol Succinate [Toprol XL -] 25 mg PO DAILY tab.sr.24h 08/22/19 Multivitamin/Iron/Folic Acid [Centrum Adults Tablet] 1 each PO DAILY 08/24/19 Tizanidine HCl 4 mg PO TID 08/24/19 Hydroxyzine HCl 25 mg PO DAILY 11/08/19 Lisinopril 20 mg PO DAILY 11/12/19 Ondansetron HCl [Zofran] 8 mg PO TID 11/12/19 Ergocalciferol (Vitamin D2) [Vitamin D2] 1,250 unit PO DAILY 11/13/19 Aspirin [ASA -] 81 mg PO DAILY 11/15/19 Prescription Drug Monitoring Program (I-STOP) results: I-STOP reviewed and no issues identified This patient is new to me today: Yes Date on this admission: 11/19/19 Emergency Visit: Yes ED Registration Date: 11/18/19 Care time: The patient presented to the Emergency Department on the above date and was hospitalized for further evaluation of their emergent condition. Critical Care patient: No - Discharge Referral Referred to [facility] Med [facility].: No
--- NOTE | 2019-11-21 08:35 | OP ---
DATE OF OPERATION: 11/17/2019 SURGEON: Dyan Rodriguez DPM STAFF PSYCHIATRIST: Darryn Mcfadden DPM, PGY-3 PREOPERATIVE DIAGNOSES: 1. Left foot fracture-dislocation 2nd metatarsal. 2. Left foot fracture-dislocation 3rd metatarsal. POSTPROCEDURE DIAGNOSES: 1. Left foot fracture-dislocation 2nd metatarsal. 2. Left foot fracture-dislocation 3rd metatarsal. PROCEDURE: 1. Partial metatarsal head resection 2nd metatarsal, left foot. 2. Marcelle osteotomy 2nd metatarsal, left foot. 3. Marcelle osteotomy 3rd metatarsal, left foot. 4. Intraoperative fluoroscopy. 5. Layered closure. 6. Postoperative injection. 7. Application of bivalve cast. PATHOLOGY: Bone and soft tissue. ANESTHESIA: General anesthesia. HEMOSTASIS: Left ankle tourniquet at 250 mmHg. ESTIMATED BLOOD LOSS: Minimal. MATERIALS: Arthrex snap-off 2.0 x 13-screw; Arthrex 2.5 x 14-mm fully-threaded headless cannulated screw; dermal substitute graft; 2-0 Vicryl; 3-0 Vicryl; 4-0 nylon; Adaptic; 4 x 4's; Kerlix; ABD pads and a bivalve cast. INJECTABLE: Preoperative 20 mL total of lidocaine 1% plain and postoperatively was 10 mL of an 8:2 mixture of Marcaine 0.5% plain with dexamethasone 4 mg. CONDITION: Stable. COMPLICATIONS: None. DESCRIPTION OF PROCEDURE: The patient was brought to the operating room and placed on the operating room table in the supine position. After appropriate timeout procedures, administration of preoperative antibiotics and identification of the procedure, general anesthesia was initiated by the anesthesia team. After adequate sedation, local anesthetic block was administered to the left foot utilizing 1% plain for a total of 20 mL being used. A pneumatic ankle tourniquet was then applied to the left ankle. The Esmarch bandage was then used to exsanguinate the patient's left foot and the tourniquet was inflated to 250 mmHg. Surgery began in the following manner: Attention was directed to the left foot where a previously healed surgical cicatrix from the initial fracture-relocation was performed. Using intraoperative fluoroscopy, the alignment of the 2nd metatarsal and the relationship of the dislocated 2nd and 3rd digits was drawn out. A linear incision was made over the 2nd interspace and digit to allow for access to the 2nd metatarsal. The incision was deepened with sharp and blunt dissection until the 2nd metatarsal was identified where a previous fracture was visualized and found to have evidence of callus formation. At this point it was observed that the metatarsal head was hypertrophic in its dorsal, medial and lateral aspects. The distal aspect of the metatarsal head was resected and the head was reshaped into a more anatomic shape. Next, an osteotomy was made proximal to the initial fracture site in a dorsal distal to plantar proximal fashion in a Marcelle type manner. This osteotomy allowed for adequate shortening of the metatarsal bone such that after shortening the 2nd digit was in a more anatomically correct position. Using standard AO principles and techniques, a 2.5 x 14-mm headless cannulated screw was then placed across the osteotomy site. Adequate fixation and placement was visualized via fluoroscopy and the head of the metatarsal was covered with a Dermagraft substitute. The remaining edge was resected using a rongeur and all edges were smoothed using power equipment as a sagittal saw and bur. Attention was then directed to the 3rd metatarsal which was accessed through the previous incision. The incision was undermined laterally with sharp and blunt dissection until the 3rd metatarsal was identified where the previous fracture was visualized and found to have evidence of callus formation. Next, an osteotomy was made proximal to the initial fracture site in a dorsal distal to plantar proximal fashion in a Marcelle type manner. This osteotomy allowed for adequate shortening of the metatarsal bone such that after the shortening the 3rd digit was in a more anatomically correct position. Using standard AO principles and technique as 2.0 x 13-mm snap-off screw was then placed across the osteotomy site. Adequate fixation and placement was visualized via fluoroscopy. The remaining edge was resected using a rongeur and all edges were smoothed using power equipment of a sagittal saw and bur. Attention was then directed to the 2nd digit where a 0.62 K-wire was then drive through the 2nd digit in a retrograde fashion. The 2nd digit was then aligned with the 2nd metatarsal and the K-wire was driven into the metatarsal head to hold the digital correction. Adequate fixation and placement was visualized via fluoroscopy of the 2nd digit. The same procedure was then followed for the 3rd digit at which time adequate fixation and placement of the 3rd digit was also visualized via fluoroscopy. The surgical site was then flushed with normal saline and closed in layers. The deep layer was closed with 2-0 Vicryl. The subcutaneous layer was closed with 3-0 Vicryl and the skin was closed with 4-0 nylon. A postoperative injection was administered to the left foot utilizing 10 mL of an 8:2 mix of Marcaine 0.5% plain and dexamethasone. Surgical site was dressed with Adaptic, sterile 4 x 4 gauze and Blake. The pneumatic ankle tourniquet was then deflated and a prompt hyperemic response was noted to all digits of the left foot. A bivalve cast was then applied to the left lower extremity. The patient tolerated the procedure and anesthesia well and left the operating room to the recovery room with all vital signs stable and neurovascular status intact to the left foot. DYAN RODRIGUEZ DPM [id number]
== END 2019-11-19 17:58 | disposition home or self-care (01) | DRG 941 ==
LOC: JASU-SURG 04:47 → J6S 11-18 00:29 → JASUSAT 11-18 10:00
PROVIDERS: ADMIT Podiatrist Foot Surgery; ATTEND Podiatrist Foot Surgery
PROC: 0QBP0ZZ Excision of Left Metatarsal, Open Approach (ICD-10-PCS; 2019-11-17)
PROC: 2W3TX2Z Immobilization of Left Foot using Cast (ICD-10-PCS; 2019-11-17)
PROC: BW1CZZZ Fluoroscopy of Lower Extremity (ICD-10-PCS; 2019-11-17)
PROC: 0QSP04Z Reposition Left Metatarsal with Internal Fixation Device, Open Approach (ICD-10-PCS; principal; 2019-11-17 16:00)
DX: G89.18 Other acute postprocedural pain (principal); S93.335A Other dislocation of left foot, initial encounter; S92.332A Displaced fracture of third metatarsal bone, left foot, initial encounter for closed fracture; S92.322A Displaced fracture of second metatarsal bone, left foot, initial encounter for closed fracture; I10 Essential (primary) hypertension; K21.9 Gastro-esophageal reflux disease without esophagitis; E11.9 Type 2 diabetes mellitus without complications; M19.09 Primary osteoarthritis, other specified site; R41.82 Altered mental status, unspecified; E83.42 Hypomagnesemia; I71.2 Thoracic aortic aneurysm, without rupture; X58.XXXA Exposure to other specified factors, initial encounter; Y93.89 Activity, other specified
CPT/HCPCS: 36415; 80053; 80307; 81003; 82962; 83735; 84100; 85025; 94760; J0131

== ENCOUNTER 2020-01-12 17:15 | Emergency (ER) | payer OTHER ==
[2020-01-12 17:28] VITALS: BMI 23.6
[2020-01-12] MEDS ORDERED: diphenhydrAMINE HCL 50 MG CAPSULE PO ONE (18:19)
[2020-01-12] MEDS ORDERED: diphenhydrAMINE HCL 25 MG CAPSULE (FP) PO ONE (18:21)
[2020-01-12] MEDS ORDERED: LORazepam 2 MG TABLET PO ONE (20:19)
[2020-01-12] MEDS ORDERED: LORazepam 1 MG TABLET ONE (21:02)
[2020-01-12 21:03] LABS: BASO % 0.2 % (0-2.0); EOS % 0.6 % (0-4.5); HEMOGLOBIN 13.6 GM/dL (11.7-16.9); MCH 29.3 pg (25.7-33.7); MCHC 33.2 g/dl (32.0-35.9); MEAN CELL VOLUME 88.3 fl (80-96); MEAN PLT VOLUME 8.5 fl (7.5-11.1); MONO % 9.3 % (3.8-10.2); NEUT % 47.9 % (42.8-82.8); PLATELET COUNT 329 K/MM3 (134-434); RBC 4.64 M/mm3 (4.00-5.60); RDW 13.2 % (11.9-15.9); WHITE BLOOD COUNT 9.3 K/mm3 (4.0-10.0)
[2020-01-12 21:24] LABS: CHLORIDE 103 mmol/L (98-107); POTASSIUM 3.7 mmol/L (3.5-5.1); SODIUM 134 mmol/L (136-145)
[2020-01-12 21:26] LABS: ANION GAP 15 MMOL/L (8-16); CALCIUM 9.9 mg/dL (8.5-10.1); CO2 17 mmol/L (21-32); GLUCOSE,RANDOM 78 mg/dL (74-106); LIPASE 117 U/L (73-393)
[2020-01-12 21:29] LABS: CREATININE 1.2 mg/dL (0.55-1.3); SGOT/AST 30 U/L (15-37); SGPT/ALT 42 U/L (13-61)
[2020-01-12 21:31] LABS: BILIRUBIN,TOTAL 0.6 mg/dL (0.2-1); TOT PROT 8.7 g/dl (6.4-8.2)
[2020-01-12 21:32] LABS: ALK PHOS 66 U/L (45-117)
[2020-01-12] MEDS ORDERED: DICYCLOMINE HCL 20 MG TABLET PO ONE (22:17)
[2020-01-12 22:18] VITALS: BP 146/99; PULSE 82
[2020-01-12] MEDS ORDERED: DICYCLOMINE HCL 10 MG CAPSULE ONE ×2 (22:19→22:20)
== END 2020-01-13 00:29 | disposition home or self-care (01) ==
LOC: JER 17:15
DX: R07.9 Chest pain, unspecified (principal); F41.9 Anxiety disorder, unspecified; R10.9 Unspecified abdominal pain
CPT/HCPCS: 36415; 71045-TC-FY; 80053; 82550; 83690; 84484; 85025; 85379; 93005; 93010; 99285-25

== ENCOUNTER 2020-07-26 04:48 | Day surgery (SDC) | payer OTHER ==
[2020-07-25 10:28] VITALS: BMI 30.5
[2020-07-26] MEDS ORDERED: oxyCODONE HCL 10 MG SUSTAINED ACTING TABLET ONE (13:03)
[2020-07-26] MEDS ORDERED: oxyCODONE HCL 5 MG TABLET PO ONE ×2 (13:04→17:44)
[2020-07-26] MEDS ORDERED: LIDOCAINE HCL 1%, 10 MG/ML (20ML VIAL) ONE (13:26)
[2020-07-26] MEDS ORDERED: BUPIVACAINE HCL/PF 0.25% (2.5MG/ML) 10 ML VIAL ONE (13:47)
[2020-07-26] MEDS ORDERED: BUPIVACAINE HCL/PF 0.25% (2.5MG/ML) 10 ML VIAL IJ ONE ×2 (13:52→14:42)
[2020-07-26] MEDS ORDERED: LIDOCAINE HCL 1%, 10 MG/ML (20ML VIAL) NR ONE ×2 (13:52→14:21)
[2020-07-26] MEDS ORDERED: MIDAZOLAM HCL 2 MG/2 ML SINGLE DOSE VIAL ONE (13:59)
[2020-07-26] MEDS ORDERED: fentaNYL CITRATE 250 MCG/5 ML VIAL ONE (13:59)
[2020-07-26] MEDS ORDERED: LIDOCAINE HCL/PF 2% SDV 5ML VIAL ONE (13:59)
[2020-07-26] MEDS ORDERED: PROPOFOL 20 ML ONE ×2 (13:59)
[2020-07-26] MEDS ORDERED: SUCCINYLCHOLINE CHLORIDE 200 MG/10 ML SYRINGE ONE (15:01)
[2020-07-26] MEDS ORDERED: LACTATED RINGERS SOLUTION 1,000 ML IV SCH (15:30)
[2020-07-26] MEDS ORDERED: ACETAMINOPHEN INJECTION 100 ML IVPB ONE (15:32)
[2020-07-26] MEDS ORDERED: ceFAZolin 2 GRAM PREMIX BAG IVPB ONE (15:34)
[2020-07-26] MEDS ORDERED: oxyCODONE HCL 5 MG TABLET ONE (17:39)
[2020-07-26 19:05] VITALS: BP 139/88; PULSE 70; TEMP 97.9
== END 2020-07-26 18:45 | disposition home or self-care (01) ==
LOC: JASU-SURG 04:48
PROVIDERS: ATTEND Podiatrist Foot Surgery
PROC: 0KNW0ZZ Release Left Foot Muscle, Open Approach (ICD-10-PCS; principal; 2020-07-26 14:00)
DX: M72.2 Plantar fascial fibromatosis (principal); I10 Essential (primary) hypertension; E11.9 Type 2 diabetes mellitus without complications
CPT/HCPCS: 88304-TC; 94760; J0131

== ENCOUNTER 2020-11-25 15:45 | Inpatient (IN) | payer OTHER ==
[2020-11-25] MEDS ORDERED: SODIUM CHLORIDE 1,000 ML IV STA ×2 (17:05→18:51)
[2020-11-25] MEDS ORDERED: LACTULOSE 20 GM/30 ML UDC (FOR ORAL USE ONLY) PO ONE (17:14)
[2020-11-25] MEDS ORDERED: LACTULOSE 20 GM/30 ML UDC (FOR ORAL USE ONLY) ONE (17:40)
[2020-11-25] MEDS ORDERED: ONDANSETRON 4 MG/2 ML VIAL IVPUSH ONE (18:04)
[2020-11-25] MEDS ORDERED: ONDANSETRON 4 MG/2 ML VIAL ONE (18:05)
[2020-11-25 18:15] LABS: BASO % 0.7 % (0-2.0); EOS % 1.1 % (0-4.5); HEMATOCRIT 30.9 % (35.4-49); HEMOGLOBIN 9.8 GM/dL (11.7-16.9); LYMPH % 37.5 % (8-40); MCHC 31.7 g/dl (32.0-35.9); MEAN CELL VOLUME 78.9 fl (80-96); MEAN PLT VOLUME 6.8 fl (7.5-11.1); MONO % 4.3 % (3.8-10.2); NEUT % 56.4 % (42.8-82.8); PLATELET COUNT 253 10^3/uL (134-434); RBC 3.92 M/mm3 (4.00-5.60); RDW 21.3 % (11.9-15.9); WHITE BLOOD COUNT 5.9 K/mm3 (4.0-10.0)
[2020-11-25 18:32] LABS: CHLORIDE 114 mmol/L (98-107); SODIUM 151 mmol/L (136-145)
[2020-11-25 18:34] LABS: CALCIUM 8.7 mg/dL (8.5-10.1)
[2020-11-25 18:35] LABS: ALBUMIN 2.8 g/dl (3.4-5.0); ANION GAP 16 MMOL/L (8-16); BLOOD UREA NITROGEN 4.4 mg/dL (7-18); CO2 22 mmol/L (21-32)
[2020-11-25 18:36] LABS: LIPASE 524 U/L (73-393)
[2020-11-25 18:37] LABS: GLUCOSE,RANDOM 118 mg/dL (74-106)
[2020-11-25 18:38] LABS: SGOT/AST 278 U/L (15-37)
[2020-11-25 18:40] LABS: TOT PROT 7.6 g/dl (6.4-8.2)
[2020-11-25 18:42] LABS: CREATININE 0.8 mg/dL (0.55-1.3); SGPT/ALT 183 U/L (13-61)
[2020-11-25 18:43] LABS: BILIRUBIN,TOTAL 1.2 mg/dL (0.2-1)
[2020-11-25 18:45] LABS: ALK PHOS 235 U/L (45-117)
[2020-11-25] MEDS ORDERED: ACETAMINOPHEN 1000 MG/100 ML VIAL IVPB ONE (18:50)
[2020-11-25 18:51] LABS: URINE APPEARANCE CLEAR; URINE BILIRUBIN NEGATIVE (NEGATIVE); URINE COLOR YELLOW; URINE GLUCOSE (UA) NEGATIVE (NEGATIVE); URINE KETONE NEGATIVE (NEGATIVE); URINE LEUK ESTERASE NEGATIVE (NEGATIVE); URINE NITRITE NEGATIVE (NEGATIVE); URINE PROTEIN NEGATIVE (NEGATIVE)
[2020-11-25 18:56] LABS: METHADONE, UR NEGATIVE (NEGATIVE); OPIATES, URI NEGATIVE (NEGATIVE); URINE AMPHETAMINES NEGATIVE (NEGATIVE); URINE BARBITURATES NEGATIVE (NEGATIVE); URINE BENZODIAZEPINES NEGATIVE (NEGATIVE)
[2020-11-25] MEDS ORDERED: ACETAMINOPHEN INJECTION 100 ML IVPB ONE (18:56)
[2020-11-25 18:57] LABS: PHENCYCLIDINE,URINE NEGATIVE (NEGATIVE)
[2020-11-25 19:08] LABS: COCAINE, UR NEGATIVE (NEGATIVE)
[2020-11-25] MEDS ORDERED: SODIUM CHLORIDE 0.45% 1,000 ML IV SCH (19:15)
[2020-11-25 19:30] LABS: ANISOCYTOSIS 2+; MACROCYTOSIS 1+; PLATELET ESTIMATE NORMAL; TARGET CELLS 1+
[2020-11-25] MEDS ORDERED: LORazepam 2 MG/ML SDV VIAL IVPB ONE (22:23)
[2020-11-25] MEDS ORDERED: LORazepam 2 MG/ML SDV VIAL ONE (22:39)
[2020-11-25 23:28] LABS: INR 1.08 (0.83-1.09); PROTHROMBIN TIME (PATIENT) 13.1 SEC (9.7-13.0)
[2020-11-26] MEDS: SODIUM CHLORIDE 1,000 ML IV SCH ×3 (00:25→20:27)
[2020-11-26] MEDS ORDERED: ALBUTEROL SO4 HFA INHALER IH PRN (01:37)
[2020-11-26] MEDS ORDERED: LORazepam 1 MG TABLET PO PRN (02:17)
[2020-11-26] MEDS ORDERED: LORazepam 0.5 MG TABLET ONE ×2 (02:44→03:45)
[2020-11-26 02:58] LABS: CALCIUM 7.7 mg/dL (8.5-10.1)
[2020-11-26 02:59] LABS: BLOOD UREA NITROGEN 4.7 mg/dL (7-18)
[2020-11-26 03:02] LABS: CREATININE 0.6 mg/dL (0.55-1.3)
[2020-11-26] MEDS ORDERED: DEXTROSE 50%-WATER - 25 GM/50 ML VIAL IVPUSH ONE (03:37)
[2020-11-26] MEDS ORDERED: KETOROLAC TROMETHAMINE 30 MG/1 ML VIAL IVPUSH ONE (03:55)
[2020-11-26] MEDS ORDERED: DEXTROSE 50%-WATER - 25 GM/50 ML VIAL ONE ×2 (04:05→04:11)
[2020-11-26] MEDS: LORazepam 1 MG TABLET PO SCH ×4 (04:36→22:36)
[2020-11-26 05:02] VITALS: BMI 35.1
[2020-11-26] MEDS: INSULIN SLIDING SCALE (NOVOLOG) 1 VIAL SQ SCH ×4 (06:16→21:37)
[2020-11-26] MEDS: NICOTINE 14 MG/24 HOURS TOPICAL PATCH TD SCH (09:53)
[2020-11-26 09:54] LABS: INR 1.06 (0.83-1.09)
[2020-11-26 09:55] LABS: HEMATOCRIT 26.2 % (35.4-49); HEMOGLOBIN 8.5 GM/dL (11.7-16.9); MCH 25.4 pg (25.7-33.7); MCHC 32.3 g/dl (32.0-35.9); MEAN CELL VOLUME 78.7 fl (80-96); MEAN PLT VOLUME 6.9 fl (7.5-11.1); PLATELET COUNT 233 10^3/uL (134-434); RBC 3.33 M/mm3 (4.00-5.60); RDW 21.3 % (11.9-15.9); RETICULOCYTES 3.42 % (0.5-1.5); WHITE BLOOD COUNT 4.8 K/mm3 (4.0-10.0)
[2020-11-26 09:56] LABS: ACTIVATED PTT 27.3 SECONDS (25.2-36.5)
[2020-11-26] MEDS ORDERED: PANTOPRAZOLE SODIUM 40 MG VIAL IVPUSH SCH (10:00)
[2020-11-26 10:12] LABS: CALCIUM 7.6 mg/dL (8.5-10.1)
[2020-11-26 10:13] LABS: ALBUMIN 2.3 g/dl (3.4-5.0); BLOOD UREA NITROGEN 5.1 mg/dL (7-18)
[2020-11-26 10:14] LABS: MAGNESIUM 1.4 mg/dL (1.8-2.4)
[2020-11-26 10:16] LABS: BILIRUBIN,TOTAL 1.2 mg/dL (0.2-1); CREATININE 0.8 mg/dL (0.55-1.3); TOT PROT 6.1 g/dl (6.4-8.2)
[2020-11-26 10:17] LABS: PHOSPHOROUS 3.1 mg/dL (2.5-4.9)
[2020-11-26] MEDS ORDERED: MAGNESIUM SULF 50% (8.12 MEQ/2 ML-1 GM VIAL) IVPB ONE (11:00)
[2020-11-26] MEDS ORDERED: LORazepam 2 MG/ML SDV VIAL IVPUSH PRN (11:10)
[2020-11-26] MEDS ORDERED: PROCHLORPERAZINE INJECTION 10 MG/2 ML VIAL IVPB ONE (11:15)
[2020-11-26] MEDS ORDERED: LORazepam 2 MG/ML SDV VIAL IVPUSH SCH (11:15)
[2020-11-26] MEDS ORDERED: PT OWN MED DRAWER 7, Y5N ONE (13:02)
[2020-11-26] MEDS: FOLIC ACID 1 MG TABLET (FP) PO SCH (13:14)
[2020-11-26] MEDS: THIAMINE HCL 100 MG TABLET (FP) PO SCH (13:14)
[2020-11-26 14:56] LABS: VENOUS BASE EXCESS 0.2 mmol/L (-2-2); VENOUS O2 SATURATION 89.2 % (70-80)
[2020-11-26 14:59] LABS: VENOUS PH 7.443 (7.310-7.410)
[2020-11-26] MEDS ORDERED: MAGNESIUM OXIDE 400 MG TABLET (FP) PO ONE (15:16)
[2020-11-26] MEDS: amLODIPine BESYLATE 5 MG TABLET (FP) PO SCH (15:58)
[2020-11-26] MEDS: ESCITALOPRAM OXALATE 20 MG TABLET PO SCH (15:58)
[2020-11-26 17:46] LABS: BLOOD UREA NITROGEN 6.2 mg/dL (7-18); CALCIUM 7.6 mg/dL (8.5-10.1)
[2020-11-26 17:47] LABS: ALBUMIN 2.3 g/dl (3.4-5.0)
[2020-11-26 17:50] LABS: CREATININE 0.8 mg/dL (0.55-1.3)
[2020-11-26 17:51] LABS: BILIRUBIN,TOTAL 1.1 mg/dL (0.2-1); TOT PROT 6.1 g/dl (6.4-8.2)
[2020-11-26] MEDS: PANTOPRAZOLE SODIUM 40 MG VIAL IVPUSH SCH (18:22)
[2020-11-26] MEDS ORDERED: TRIMETHOBENZAMIDE HCL 300 MG CAPSULE PO ONE (22:07)
[2020-11-27] MEDS: SODIUM CHLORIDE 1,000 ML IV SCH ×4 (01:24→19:03)
[2020-11-27] MEDS: LORazepam 1 MG TABLET PO SCH ×4 (05:22→22:20)
[2020-11-27] MEDS: INSULIN SLIDING SCALE (NOVOLOG) 1 VIAL SQ SCH ×4 (06:20→21:05)
[2020-11-27 08:06] LABS: BASO % 1.4 % (0-2.0); EOS % 1.7 % (0-4.5); HEMATOCRIT 29.1 % (35.4-49); HEMOGLOBIN 9.4 GM/dL (11.7-16.9); LYMPH % 32.1 % (8-40); MCHC 32.2 g/dl (32.0-35.9); MEAN CELL VOLUME 77.8 fl (80-96); MEAN PLT VOLUME 6.8 fl (7.5-11.1); NEUT % 58.8 % (42.8-82.8); PLATELET COUNT 229 10^3/uL (134-434); RBC 3.74 M/mm3 (4.00-5.60); RDW 21.3 % (11.9-15.9); WHITE BLOOD COUNT 4.8 K/mm3 (4.0-10.0)
[2020-11-27 08:22] LABS: CHLORIDE 107 mmol/L (98-107); SODIUM 138 mmol/L (136-145)
[2020-11-27 08:23] LABS: BLOOD UREA NITROGEN 5.3 mg/dL (7-18); CALCIUM 8.4 mg/dL (8.5-10.1)
[2020-11-27 08:24] LABS: ANION GAP 8 MMOL/L (8-16); CO2 24 mmol/L (21-32); GLUCOSE,RANDOM 98 mg/dL (74-106); MAGNESIUM 2.2 mg/dL (1.8-2.4)
[2020-11-27 08:26] LABS: ALBUMIN 2.6 g/dl (3.4-5.0)
[2020-11-27 08:27] LABS: CREATININE 0.7 mg/dL (0.55-1.3); PHOSPHOROUS 2.8 mg/dL (2.5-4.9); SGOT/AST 151 U/L (15-37); SGPT/ALT 126 U/L (13-61)
[2020-11-27 08:28] LABS: BILIRUBIN,TOTAL 1.6 mg/dL (0.2-1); TOT PROT 6.4 g/dl (6.4-8.2)
[2020-11-27 08:29] LABS: ALK PHOS 213 U/L (45-117)
[2020-11-27] MEDS ORDERED: PROCHLORPERAZINE MALEATE 5 MG TABLET PO PRN (10:31)
[2020-11-27] MEDS ORDERED: IRON SUCROSE INJECTION 100 MG in SODIUM CHLORIDE 95 ML IVPB ONE (10:52)
[2020-11-27] MEDS: POLYETHYLENE GLYCOL (HEALTHYLAX) 3350 17 GM PACKET PO SCH (11:57)
[2020-11-27] MEDS: PANTOPRAZOLE SODIUM 40 MG VIAL IVPUSH SCH (11:57)
[2020-11-27] MEDS: NICOTINE 14 MG/24 HOURS TOPICAL PATCH TD SCH (11:57)
[2020-11-27] MEDS: amLODIPine BESYLATE 5 MG TABLET (FP) PO SCH (11:58)
[2020-11-27] MEDS: FOLIC ACID 1 MG TABLET (FP) PO SCH (11:59)
[2020-11-27] MEDS: ESCITALOPRAM OXALATE 20 MG TABLET PO SCH (11:59)
[2020-11-27] MEDS: THIAMINE HCL 100 MG TABLET (FP) PO SCH (12:00)
[2020-11-27] MEDS ORDERED: hydrOXYzine PAMOATE 50 MG CAPSULE (FP) PO SCH (14:00)
[2020-11-27] MEDS ORDERED: TIZANIDINE HCL 4 MG TABLET PO SCH ×2 (14:00)
[2020-11-27] MEDS ORDERED: PT OWN MED DRAWER 7, Y5N ONE (15:09)
[2020-11-27] MEDS ORDERED: hydrOXYzine PAMOATE 50 MG CAPSULE (FP) PO PRN (15:16)
[2020-11-27] MEDS ORDERED: LORazepam 2 MG/ML SDV VIAL IVPUSH PRN (17:18)
[2020-11-27] MEDS ORDERED: metoPROLOL SUCCINATE 25 MG TAB.SR.24H (FP) PO SCH (20:00)
[2020-11-27] MEDS ORDERED: PROCHLORPERAZINE INJECTION 10 MG/2 ML VIAL IVPB ONE (21:51)
[2020-11-28] MEDS ORDERED: LORazepam 0.5 MG TABLET PO PRN
[2020-11-28] MEDS: SODIUM CHLORIDE 1,000 ML IV SCH ×2 (01:51→09:17)
[2020-11-28] MEDS ORDERED: PROCHLORPERAZINE INJECTION 10 MG/2 ML VIAL IVPB ONE (02:29)
[2020-11-28] MEDS: LORazepam 0.5 MG TABLET PO SCH ×2 (04:45→11:45)
[2020-11-28] MEDS: INSULIN SLIDING SCALE (NOVOLOG) 1 VIAL SQ SCH ×2 (06:01→11:45)
[2020-11-28 08:16] LABS: BASO % 1.1 % (0-2.0); EOS % 1.8 % (0-4.5); HEMATOCRIT 30.9 % (35.4-49); HEMOGLOBIN 9.9 GM/dL (11.7-16.9); LYMPH % 30.2 % (8-40); MCH 25.4 pg (25.7-33.7); MCHC 32.1 g/dl (32.0-35.9); MEAN CELL VOLUME 79.3 fl (80-96); MEAN PLT VOLUME 7.1 fl (7.5-11.1); MONO % 5.2 % (3.8-10.2); NEUT % 61.7 % (42.8-82.8); PLATELET COUNT 253 10^3/uL (134-434); RDW 21.3 % (11.9-15.9); WHITE BLOOD COUNT 5.7 K/mm3 (4.0-10.0)
[2020-11-28 08:33] LABS: BLOOD UREA NITROGEN 6.1 mg/dL (7-18); CALCIUM 8.6 mg/dL (8.5-10.1)
[2020-11-28 08:34] LABS: ALBUMIN 2.7 g/dl (3.4-5.0)
[2020-11-28 08:36] LABS: CREATININE 0.8 mg/dL (0.55-1.3)
[2020-11-28 08:38] LABS: BILIRUBIN,TOTAL 1.6 mg/dL (0.2-1); TOT PROT 6.8 g/dl (6.4-8.2)
[2020-11-28] MEDS: PANTOPRAZOLE SODIUM 40 MG VIAL IVPUSH SCH (09:29)
[2020-11-28] MEDS: THIAMINE HCL 100 MG TABLET (FP) PO SCH (09:29)
[2020-11-28] MEDS: FOLIC ACID 1 MG TABLET (FP) PO SCH (09:29)
[2020-11-28] MEDS: NICOTINE 14 MG/24 HOURS TOPICAL PATCH TD SCH (09:29)
[2020-11-28] MEDS: ESCITALOPRAM OXALATE 20 MG TABLET PO SCH (09:29)
[2020-11-28] MEDS: POLYETHYLENE GLYCOL (HEALTHYLAX) 3350 17 GM PACKET PO SCH (09:30)
[2020-11-28] MEDS ORDERED: MIRTAZAPINE 15 MG TABLET (FP) PO SCH (10:00)
[2020-11-28] MEDS ORDERED: cloNIDine-TTS 0.2 MG/24 HOURS PATCH.TDWK TD SCH (10:00)
[2020-11-28 10:11] VITALS: BP 169/102; PULSE 84; TEMP 98.9
[2020-11-28 10:19] LABS: VENOUS BASE EXCESS -4.7 mmol/L (-2-2); VENOUS O2 SATURATION 99.5 % (70-80); VENOUS PCO2 24.2 mmHg (38-52); VENOUS PH 7.477 (7.310-7.410)
[2020-11-29] MEDS ORDERED: LORazepam 0.5 MG TABLET PO ONE (05:00)
[2020-12-04] MEDS ORDERED: cloNIDine-TTS 0.2 MG/24 HOURS PATCH.TDWK TD SCH (10:00)
== END 2020-11-28 12:15 | disposition left against medical advice (07) | DRG 894 ==
LOC: JER 15:45 → JERBED 18:53 → J5S 11-26 04:01
PROVIDERS: ADMIT Internal Medicine
PROC: HZ2ZZZZ Detoxification Services for Substance Abuse Treatment (ICD-10-PCS; principal; 2020-11-25)
DX: F10.129 Alcohol abuse with intoxication, unspecified (principal); G92.8 Other toxic encephalopathy; E87.0 Hyperosmolality and hypernatremia; K92.1 Melena; Y90.6 Blood alcohol level of 120-199 mg/100 ml; E11.9 Type 2 diabetes mellitus without complications; I10 Essential (primary) hypertension; K21.9 Gastro-esophageal reflux disease without esophagitis; K70.30 Alcoholic cirrhosis of liver without ascites; F41.9 Anxiety disorder, unspecified; R41.82 Altered mental status, unspecified; I71.2 Thoracic aortic aneurysm, without rupture; J45.909 Unspecified asthma, uncomplicated; F17.200 Nicotine dependence, unspecified, uncomplicated; N62 Hypertrophy of breast; D64.9 Anemia, unspecified; E66.9 Obesity, unspecified; Z68.35 Body mass index [BMI] 35.0-35.9, adult; R91.8 Other nonspecific abnormal finding of lung field; R26.81 Unsteadiness on feet; F19.10 Other psychoactive substance abuse, uncomplicated; K57.90 Diverticulosis of intestine, part unspecified, without perforation or abscess without bleeding
CPT/HCPCS: 36415; 70450-TC; 71045-TC-FY; 76705-TC; 80048; 80053; 80307; 81003; 82140; 82150; 82272; 82330; 82550; 82607; 82746; 82803; 82962; 83540; 83550; 83690; 83735; 84100; 84484; 85025; 85027; 85045; 85610; 85730; 86705; 86706; 86708; 86803; 87340; 87517; 93005; 93010; 99285-25; C9803; J0131; J1756; U0003; U0005

== ENCOUNTER 2021-02-24 18:47 | Inpatient (IN) | payer OTHER ==
[2021-02-25] MEDS ORDERED: MAGNESIUM HYDROX 2400MG/30ML ORAL SUSPENSION 30 ML CUP PO PRN (00:05)
[2021-02-25] MEDS ORDERED: MENTHOL/PHENOL 1 EACH UD MM PRN (00:05)
[2021-02-25] MEDS ORDERED: BISMUTH SUBSALICYLATE 524 MG/30 ML PO PRN (00:05)
[2021-02-25] MEDS ORDERED: ONDANSETRON *ODT* 4 MG TABLET SL PRN (00:05)
[2021-02-25] MEDS ORDERED: ACETAMINOPHEN 325 MG TABLET (FP) PO PRN (00:05)
[2021-02-25] MEDS ORDERED: hydrOXYzine PAMOATE 25 MG CAPSULE (FP) PO PRN (00:05)
[2021-02-25] MEDS ORDERED: IBUPROFEN 400 MG TABLET (FP) PO PRN (00:05)
[2021-02-25] MEDS ORDERED: MAGNESIUM CITRATE 300 ML BOTTLE PO PRN (00:05)
[2021-02-25] MEDS ORDERED: MAG HYDROX/AL HYDROX/SIMETH 30 ML UNIT-DOSE CUP PO PRN (00:05)
[2021-02-25] MEDS ORDERED: METHOCARBAMOL 500 MG TABLET PO PRN (00:05)
[2021-02-25] MEDS ORDERED: chlordiazePOXIDE HCL 25 MG CAPSULE PO PRN (00:07)
[2021-02-25] MEDS ORDERED: chlordiazePOXIDE HCL 25 MG CAPSULE PO ONE (00:07)
[2021-02-25] MEDS ORDERED: TRIMETHOBENZAMIDE HCL 200MG/2ML INJ IM ONE ×2 (00:07→00:22)
[2021-02-25] MEDS ORDERED: METOPROLOL TARTRATE 50 MG TABLET (FP) PO ONE (00:08)
[2021-02-25] MEDS ORDERED: chlordiazePOXIDE HCL 25 MG CAPSULE ONE (00:22)
[2021-02-25] MEDS ORDERED: hydrOXYzine PAMOATE 25 MG CAPSULE (FP) PO ONE (00:49)
[2021-02-25 01:14] VITALS: BMI 30.1
[2021-02-25] MEDS ORDERED: IBUPROFEN 400 MG TABLET (FP) PO ONE (01:36)
[2021-02-25] MEDS: ACETAMINOPHEN 325 MG TABLET (FP) PO PRN ×2 (02:41→09:06)
[2021-02-25] MEDS ORDERED: chlordiazePOXIDE HCL 25 MG CAPSULE PO SCH (05:00)
[2021-02-25] MEDS ORDERED: PRENATAL VITAMINS W/ FOLIC ACID TABLET (FP) PO SCH (10:00)
[2021-02-25] MEDS ORDERED: metoPROLOL SUCCINATE 25 MG TAB.SR.24H (FP) PO SCH (10:00)
[2021-02-25 12:43] VITALS: BP 146/81; PULSE 71; TEMP 97.1
[2021-02-25 13:04] LABS: HIV INTERPRETATION NEGATIVE (NEGATIVE)
[2021-02-25 15:50] LABS: HEMATOCRIT 36.5 % (35.4-49); HEMOGLOBIN 11.7 GM/dL (11.7-16.9); MCH 25.1 pg (25.7-33.7); MEAN CELL VOLUME 78.4 fl (80-96); MEAN PLT VOLUME 7.9 fl (7.5-11.1); PLATELET COUNT 218 10^3/uL (134-434); RBC 4.65 M/mm3 (4.00-5.60); WHITE BLOOD COUNT 8.6 K/mm3 (4.0-10.0)
[2021-02-25 16:08] LABS: ALBUMIN 3.3 g/dl (3.4-5.0); CALCIUM 9.2 mg/dL (8.5-10.1)
[2021-02-25 16:09] LABS: BLOOD UREA NITROGEN 15.8 mg/dL (7-18)
[2021-02-25 16:12] LABS: CREATININE 1.1 mg/dL (0.55-1.3)
[2021-02-25 16:13] LABS: BILIRUBIN,TOTAL 0.7 mg/dL (0.2-1); TOT PROT 6.6 g/dl (6.4-8.2)
[2021-02-25] MEDS ORDERED: MELATONIN 5 MG TABLETS PO SCH (22:00)
[2021-02-25] MEDS ORDERED: THIAMINE HCL 100 MG TABLET (FP) PO SCH (22:00)
[2021-02-26] MEDS ORDERED: chlordiazePOXIDE HCL 25 MG CAPSULE PO SCH (05:00)
[2021-02-26] MEDS ORDERED: ESCITALOPRAM OXALATE 20 MG TABLET PO SCH (10:00)
[2021-02-27] MEDS ORDERED: chlordiazePOXIDE HCL 10 MG CAPSULE PO PRN
[2021-02-27] MEDS ORDERED: chlordiazePOXIDE HCL 10 MG CAPSULE PO SCH (05:00)
[2021-02-28] MEDS ORDERED: chlordiazePOXIDE HCL 10 MG CAPSULE PO SCH (05:00)
[2021-03-01] MEDS ORDERED: chlordiazePOXIDE HCL 10 MG CAPSULE PO ONE (05:00)
== END 2021-02-25 13:10 | disposition short-term general hospital (02) | DRG 774 ==
LOC: YASAS 18:47 → Y6N 02-25 01:26
PROVIDERS: ADMIT Allergy & Immunology; ATTEND Allergy & Immunology
PROC: HZ2ZZZZ Detoxification Services for Substance Abuse Treatment (ICD-10-PCS; principal; 2021-02-25)
DX: F10.230 Alcohol dependence with withdrawal, uncomplicated (principal); F14.20 Cocaine dependence, uncomplicated; F17.210 Nicotine dependence, cigarettes, uncomplicated; F19.280 Other psychoactive substance dependence with psychoactive substance-induced anxiety disorder; F19.24 Other psychoactive substance dependence with psychoactive substance-induced mood disorder; I10 Essential (primary) hypertension; K70.30 Alcoholic cirrhosis of liver without ascites; K21.9 Gastro-esophageal reflux disease without esophagitis; E11.9 Type 2 diabetes mellitus without complications; R45.851 Suicidal ideations; Z87.820 Personal history of traumatic brain injury; Z91.51 Personal history of suicidal behavior; Z87.01 Personal history of pneumonia (recurrent)
CPT/HCPCS: 36415; 80053; 85027; 86780; 87389; C9803-CS; Q0162; U0003; U0005